=== PATIENT | female | born 1960 | race Caucasian/White ===

== ENCOUNTER → 2019-10-09 09:15 | Outpatient (BNVA) | payer MEDICARE, MEDICAID, SELFPAY | PROVIDERS: Visit Provider Family Medicine | DX: E78.5 Hyperlipidemia, unspecified (principal); Z01.419 Encounter for gynecological examination (general) (routine) without abnormal findings; F17.219 Nicotine dependence, cigarettes, with unspecified nicotine-induced disorders; Z68.23 Body mass index [BMI] 23.0-23.9, adult | CPT/HCPCS: 80053; 80061; 85025; 88175 ==

== ENCOUNTER 2019-10-14 13:50 | Inpatient (IN) | payer MEDICARE, MEDICAID, SELFPAY ==
[2019-10-14] VITALS (82 sets, daily range): BP systolic 58–187; BP diastolic 38–95; PULSE 59–78; RESP 14–18; TEMP 35.9–36.6; O2SAT 93–100; BMI 24.0
--- NOTE | 2019-10-14 14:02 | ED_ITS ---
HPI - Altered Mental Status General: Chief Complaint: Altered Mental Status Stated Complaint: UNRESPONSIVE Time Seen by Provider: 10/14/19 14:01 History of Present Illness: HPI narrative: 59-year-old female brought in by EMS. They report they got in the field was that she had told the family member she would take something and go to sleep permanently. She was last seen well last evening. This afternoon EMS was called for a patient nonresponsive on their arrival she had sonorous respirations was RSI and intubated with a 7.0 ET tube on arrival here she is stable blood pressure is stable she has a spontaneous circulating rhythm is completely nonresponsive yet. She has no evidence of trauma. According to the family members there was no fever cough or respiratory difficulty prior to that episode. Review of Systems General: Reports: ROS unobtainable due to endotracheal tube PFSH ED PFSH: Medical History Anxiety and depression Cancer of breast Dizziness Dyslipidemia GERD (gastroesophageal reflux disease) History of breast cancer Seizure Shoulder pain Surgical History H/O carpal tunnel repair H/O tubal ligation History of cholecystectomy History of lumpectomy of right breast History of melanoma excision History of surgery on wrist Hx of removal of ovary Status post surgical removal of malignant neoplasm of skin Family History Other CAD (coronary artery disease) Stroke Social History Smoking and tobacco status: current every day smoker cigarettes Packs smoked per day: 1 Alcohol intake: never Physical Exam HENMT: COMMON NORMALS: normocephalic, atraumatic, external ears normal, EAC's normal and TM's normal bilaterally HEAD & SCALP: normocephalic and atraumatic EXTERNAL EAR: Yes external ears normal EXTERNAL AUDITORY CANAL: EAC's normal TYMPANIC MEMBRANE: TM's normal bilaterally Neck/C-Spine: COMMON NORMALS: no JVD Lymph: LYMPHATIC: no lymphadenopathy noted and no lymphedema noted Resp: COMMON NORMALS: normal respiratory effort, No retractions, No use of accessory muscles and clear to auscultation bilaterally AUSCULTATION: clear to auscultation bilaterally Cardio: COMMON NORMALS: no JVD, regular rate, regular rhythm and No murmurs present (Cardio) RATE: regular rate RHYTHM: regular rhythm GI: COMMON NORMALS: Soft to palpation and No hepatosplenomegaly present AUSCULTATION: Yes normoactive bowel sounds PALPATION: Yes Soft to palpation, No Tenderness to palpation present (GI), No Guarding due to palpation present (GI) and Yes No hepatosplenomegaly present Extremity: COMMON NORMALS: normal to inspection, capillary refill normal, no clubbing, cyanosis or edema, no calf tenderness and no pedal edema Skin: COMMON NORMALS: no rashes or lesions noted GENERAL SKIN EXAM: no rashes or lesions noted Course Vital Signs: Vital signs: Vital Signs Temperature 97.4 F L 10/17/19 04:00 Pulse Rate 87 10/17/19 06:00 Respiratory Rate 22 H 10/17/19 06:00 Blood Pressure 167/78 10/17/19 06:00 Pulse Oximetry 96 10/17/19 06:00 MDM - Altered Mental Status MDM Narrative: Medical decision making narrative: Patient nonresponsive. On arrival informed by EMS that she had made comments about taking something and going to sleep she had not been seen since the evening prior was found at 1:00 this afternoon with a respiratory rate of 8 she was intubated immediately on arrival here on exam no significant finding on exam suspect she took an unknown toxin in an attempt to harm herself we will go ahead and admit to ICU discussed Dr. Faulkner. Lab Data: Labs: Lab Results 10/14/19 10/14/19 10/14/19 Range/Units 13:57 14:00 14:00 WBC 9.3 (4.0-10.0) 10^3/ uL RBC 4.67 (4.1-5.3) 10^6/u L Hgb 13.3 (11.5-15.3) g/dL Hct 42.0 (37.0-47.0) % MCV 89.9 (81-99) fL MCH 28.5 (28.0-34.0) pg MCHC 31.7 (30.0-36.0) g/dL RDW 12.5 (12.1-15.1) % Plt Count 204 (130-400) 10^3/c mm MPV 9.6 (7.4-10.4) fL Neut % (Auto) 59.9 % Lymph % (Auto) 29.0 % Glascock % (Auto) 9.4 % Eos % (Auto) 1.0 % Baso % (Auto) 0.5 % Neut # (Auto) 5.55 (1.8-7.7) 10^3/u L Lymph # (Auto) 2.7 (0.8-4.8) 10^3/u L Glascock # (Auto) 0.9 (0.2-0.9) 10^3/u L Eos # (Auto) 0.1 (0.0-0.8) 10^3/u L Baso # (Auto) 0.1 (0.0-0.1) 10^3/u L Nucleated RBC % (a uto) 0 % Nucleated RBCs # 0.0 /100WBC PT (12.1-14.9) SECO NDS INR (0.8-1.2) APTT (23.9-36.7) SECO NDS Specimen Type Arterial Sample Site Radial, left ABG pH 7.44 (7.35-7.45) ABG pCO2 31.7 L (35-45) mmHg ABG pO2 446.0 H (80.0-100.0) mmH g ABG HCO3 21.4 L (22-26) mmol/L ABG O2 Saturation > 100.0 ABG Base Excess -2.0 (-2.0-2.0) mmol/ L Edgar Test Pos A-a O2 Gradient 27.9 H (5-10) mmHg Hematocrit 39.9 (37-47) % Hgb O2 Saturation 92.3 L (95-100) % Carboxyhemoglobin 7.2 (0.4-20.1) %THgb Methemoglobin 0.9 (0.4-1.5) % Total Hemoglobin 13.0 (12-16) g/dL Sodium 142.0 140 (131-143) mmol/L Potassium 3.2 L 3.7 (3.5-5.0) mmol/L Glucose 125.0 H 129 H (70-115) mg/dL Ionized Calcium 1.2 (1.1-1.4) mmol/L O2 Delivery Device Vent FiO2 100.0 % Emergency Communications Dispatcher ID Ck Chloride 104 (98-107) mmol/L Carbon Dioxide 22 (22-29) mmol/L Anion Gap 17.7 (5-19) BUN 18 (8-23) mg/dL Creatinine 0.8 (0.5-0.9) mg/dL GFR Calculation 73.2 L (90-130) mL/min Calculated Osmolal ity 288 (285-295) mOsm/k g Lactic Acid (0.5-2.2) mmol/L Calcium 9.2 (8.5-10.5) mg/dL Total Bilirubin 0.2 (0.15-1.2) mg/dL AST 19 (0-32) U/L ALT 16 (0-33) U/L Alkaline Phosphata se 79 (35-105) IU/L Ammonia (11-51) umol/L Creatine Kinase 115 (26-192) U/L Troponin T Baselin e (0-10) ng/L Total Protein 6.9 (6.6-8.7) g/dL Albumin 4.4 (3.5-5.2) g/dL Globulin 2.5 (1.3-4.6) g/dL Urine Color (Yellow) Urine Appearance (CLEAR) Urine pH (5-7) Ur Specific Gravit y (1.005-1.030) Urine Protein (Negative) Urine Glucose (UA) (Normal) Urine Ketones (Negative) Urine Blood (Negative) Urine Nitrate (Negative) Urine Bilirubin (NEGATIVE) Urine Urobilinogen (Negative) mg/dL Ur Leukocyte Chrissie ase (Negative) Urine RBC (0-2) /hpf Urine WBC (0-5) /hpf Ur Squamous Epith Cells (0-5) Amorphous Sediment Urine Bacteria (NONE) Urine Mucus Salicylates < 0.3 L (3-10) mg/dL Urine Opiates Scre en (Negative) ng/mL Acetaminophen < 5.0 L (10-30) ug/mL Ur Barbiturates Sc reen (Negative) ng/mL Ur Phencyclidine S crn (Negative) ng/mL Ur Amphetamines Sc reen (Negative) ng/mL U Benzodiazepines Scrn (Negative) ng/mL Urine Cocaine Scre en (Negative) ng/mL U Marijuana (THC) Screen (Negative) ng/mL Ethyl Alcohol 43 H (0-10) mg/dL Serum Ketones Negative (Negative) Nasal/Oral COVID-1 9 PCR SARS-CoV-2 Ag (Rap id) (Negative) 10/14/19 10/14/19 10/14/19 Range/Units 14:00 14:00 14:00 WBC (4.0-10.0) 10^3/ uL RBC (4.1-5.3) 10^6/u L Hgb (11.5-15.3) g/dL Hct (37.0-47.0) % MCV (81-99) fL MCH (28.0-34.0) pg MCHC (30.0-36.0) g/dL RDW (12.1-15.1) % Plt Count (130-400) 10^3/c mm MPV (7.4-10.4) fL Neut % (Auto) % Lymph % (Auto) % Glascock % (Auto) % Eos % (Auto) % Baso % (Auto) % Neut # (Auto) (1.8-7.7) 10^3/u L Lymph # (Auto) (0.8-4.8) 10^3/u L Glascock # (Auto) (0.2-0.9) 10^3/u L Eos # (Auto) (0.0-0.8) 10^3/u L Baso # (Auto) (0.0-0.1) 10^3/u L Nucleated RBC % (a uto) % Nucleated RBCs # /100WBC PT 12.40 (12.1-14.9) SECO NDS INR 0.90 (0.8-1.2) APTT 27.2 (23.9-36.7) SECO NDS Specimen Type Sample Site ABG pH (7.35-7.45) ABG pCO2 (35-45) mmHg ABG pO2 (80.0-100.0) mmH g ABG HCO3 (22-26) mmol/L ABG O2 Saturation ABG Base Excess (-2.0-2.0) mmol/ L Edgar Test A-a O2 Gradient (5-10) mmHg Hematocrit (37-47) % Hgb O2 Saturation (95-100) % Carboxyhemoglobin (0.4-20.1) %THgb Methemoglobin (0.4-1.5) % Total Hemoglobin (12-16) g/dL Sodium (131-143) mmol/L Potassium (3.5-5.0) mmol/L Glucose (70-115) mg/dL Ionized Calcium (1.1-1.4) mmol/L O2 Delivery Device FiO2 % Emergency Communications Dispatcher ID Chloride (98-107) mmol/L Carbon Dioxide (22-29) mmol/L Anion Gap (5-19) BUN (8-23) mg/dL Creatinine (0.5-0.9) mg/dL GFR Calculation (90-130) mL/min Calculated Osmolal ity (285-295) mOsm/k g Lactic Acid 2.2 (0.5-2.2) mmol/L Calcium (8.5-10.5) mg/dL Total Bilirubin (0.15-1.2) mg/dL AST (0-32) U/L ALT (0-33) U/L Alkaline Phosphata se (35-105) IU/L Ammonia 20 (11-51) umol/L Creatine Kinase (26-192) U/L Troponin T Baselin e (0-10) ng/L Total Protein (6.6-8.7) g/dL Albumin (3.5-5.2) g/dL Globulin (1.3-4.6) g/dL Urine Color (Yellow) Urine Appearance (CLEAR) Urine pH (5-7) Ur Specific Gravit y (1.005-1.030) Urine Protein (Negative) Urine Glucose (UA) (Normal) Urine Ketones (Negative) Urine Blood (Negative) Urine Nitrate (Negative) Urine Bilirubin (NEGATIVE) Urine Urobilinogen (Negative) mg/dL Ur Leukocyte Chrissie ase (Negative) Urine RBC (0-2) /hpf Urine WBC (0-5) /hpf Ur Squamous Epith Cells (0-5) Amorphous Sediment Urine Bacteria (NONE) Urine Mucus Salicylates (3-10) mg/dL Urine Opiates Scre en (Negative) ng/mL Acetaminophen (10-30) ug/mL Ur Barbiturates Sc reen (Negative) ng/mL Ur Phencyclidine S crn (Negative) ng/mL Ur Amphetamines Sc reen (Negative) ng/mL U Benzodiazepines Scrn (Negative) ng/mL Urine Cocaine Scre en (Negative) ng/mL U Marijuana (THC) Screen (Negative) ng/mL Ethyl Alcohol (0-10) mg/dL Serum Ketones (Negative) Nasal/Oral COVID-1 9 PCR SARS-CoV-2 Ag (Rap id) (Negative) 10/14/19 10/14/19 10/14/19 Range/Units 14:00 14:10 14:10 WBC (4.0-10.0) 10^3/ uL RBC (4.1-5.3) 10^6/u L Hgb (11.5-15.3) g/dL Hct (37.0-47.0) % MCV (81-99) fL MCH (28.0-34.0) pg MCHC (30.0-36.0) g/dL RDW (12.1-15.1) % Plt Count (130-400) 10^3/c mm MPV (7.4-10.4) fL Neut % (Auto) % Lymph % (Auto) % Glascock % (Auto) % Eos % (Auto) % Baso % (Auto) % Neut # (Auto) (1.8-7.7) 10^3/u L Lymph # (Auto) (0.8-4.8) 10^3/u L [place]ascock # (Auto) (0.2-0.9) 10^3/u L Eos # (Auto) (0.0-0.8) 10^3/u L Baso # (Auto) (0.0-0.1) 10^3/u L Nucleated RBC % (a uto) % Nucleated RBCs # /100WBC PT (12.1-14.9) SECO NDS INR (0.8-1.2) APTT (23.9-36.7) SECO NDS Specimen Type Sample Site ABG pH (7.35-7.45) ABG pCO2 (35-45) mmHg ABG pO2 (80.0-100.0) mmH g ABG HCO3 (22-26) mmol/L ABG O2 Saturation ABG Base Excess (-2.0-2.0) mmol/ L Edgar Test A-a O2 Gradient (5-10) mmHg Hematocrit (37-47) % Hgb O2 Saturation (95-100) % Carboxyhemoglobin (0.4-20.1) %THgb Methemoglobin (0.4-1.5) % Total Hemoglobin (12-16) g/dL Sodium (131-143) mmol/L Potassium (3.5-5.0) mmol/L Glucose (70-115) mg/dL Ionized Calcium (1.1-1.4) mmol/L O2 Delivery Device FiO2 % Emergency Communications Dispatcher ID Chloride (98-107) mmol/L Carbon Dioxide (22-29) mmol/L Anion Gap (5-19) BUN (8-23) mg/dL Creatinine (0.5-0.9) mg/dL GFR Calculation (90-130) mL/min Calculated Osmolal ity (285-295) mOsm/k g Lactic Acid (0.5-2.2) mmol/L Calcium (8.5-10.5) mg/dL Total Bilirubin (0.15-1.2) mg/dL AST (0-32) U/L ALT (0-33) U/L Alkaline Phosphata se (35-105) IU/L Ammonia (11-51) umol/L Creatine Kinase (26-192) U/L Troponin T Baselin e 7 (0-10) ng/L Total Protein (6.6-8.7) g/dL Albumin (3.5-5.2) g/dL Globulin (1.3-4.6) g/dL Urine Color (Yellow) Urine Appearance (CLEAR) Urine pH (5-7) Ur Specific Gravit y (1.005-1.030) Urine Protein (Negative) Urine Glucose (UA) (Normal) Urine Ketones (Negative) Urine Blood (Negative) Urine Nitrate (Negative) Urine Bilirubin (NEGATIVE) Urine Urobilinogen (Negative) mg/dL Ur Leukocyte Chrissie ase (Negative) Urine RBC (0-2) /hpf Urine WBC (0-5) /hpf Ur Squamous Epith Cells (0-5) Amorphous Sediment Urine Bacteria (NONE) Urine Mucus Salicylates (3-10) mg/dL Urine Opiates Scre en (Negative) ng/mL Acetaminophen (10-30) ug/mL Ur Barbiturates Sc reen (Negative) ng/mL Ur Phencyclidine S crn (Negative) ng/mL Ur Amphetamines Sc reen (Negative) ng/mL U Benzodiazepines Scrn (Negative) ng/mL Urine Cocaine Scre en (Negative) ng/mL U Marijuana (THC) Screen (Negative) ng/mL Ethyl Alcohol (0-10) mg/dL Serum Ketones (Negative) Nasal/Oral COVID-1 9 PCR Negative SARS-CoV-2 Ag (Rap id) Negative (Negative) 10/14/19 10/14/19 Range/Units 14:14 14:14 WBC (4.0-10.0) 10^3/ uL RBC (4.1-5.3) 10^6/u L Hgb (11.5-15.3) g/dL Hct (37.0-47.0) % MCV (81-99) fL MCH (28.0-34.0) pg MCHC (30.0-36.0) g/dL RDW (12.1-15.1) % Plt Count (130-400) 10^3/c mm MPV (7.4-10.4) fL Neut % (Auto) % Lymph % (Auto) % Glascock % (Auto) % Eos % (Auto) % Baso % (Auto) % Neut # (Auto) (1.8-7.7) 10^3/u L Lymph # (Auto) (0.8-4.8) 10^3/u L Glascock # (Auto) (0.2-0.9) 10^3/u L Eos # (Auto) (0.0-0.8) 10^3/u L Baso # (Auto) (0.0-0.1) 10^3/u L Nucleated RBC % (a uto) % Nucleated RBCs # /100WBC PT (12.1-14.9) SECO NDS INR (0.8-1.2) APTT (23.9-36.7) SECO NDS Specimen Type Sample Site ABG pH (7.35-7.45) ABG pCO2 (35-45) mmHg ABG pO2 (80.0-100.0) mmH g ABG HCO3 (22-26) mmol/L ABG O2 Saturation ABG Base Excess (-2.0-2.0) mmol/ L Edgar Test A-a O2 Gradient (5-10) mmHg Hematocrit (37-47) % Hgb O2 Saturation (95-100) % Carboxyhemoglobin (0.4-20.1) %THgb Methemoglobin (0.4-1.5) % Total Hemoglobin (12-16) g/dL Sodium (131-143) mmol/L Potassium (3.5-5.0) mmol/L Glucose (70-115) mg/dL Ionized Calcium (1.1-1.4) mmol/L O2 Delivery Device FiO2 % Emergency Communications Dispatcher ID Chloride (98-107) mmol/L Carbon Dioxide (22-29) mmol/L Anion Gap (5-19) BUN (8-23) mg/dL Creatinine (0.5-0.9) mg/dL GFR Calculation (90-130) mL/min Calculated Osmolal ity (285-295) mOsm/k g Lactic Acid (0.5-2.2) mmol/L Calcium (8.5-10.5) mg/dL Total Bilirubin (0.15-1.2) mg/dL AST (0-32) U/L ALT (0-33) U/L Alkaline Phosphata se (35-105) IU/L Ammonia (11-51) umol/L Creatine Kinase (26-192) U/L Troponin T Baselin e (0-10) ng/L Total Protein (6.6-8.7) g/dL Albumin (3.5-5.2) g/dL Globulin (1.3-4.6) g/dL Urine Color Yellow (Yellow) Urine Appearance Sl cloudy A (CLEAR) Urine pH 5 (5-7) Ur Specific Gravit y 1.025 (1.005-1.030) Urine Protein 1+ H (Negative) Urine Glucose (UA) Norm (Normal) Urine Ketones Negative (Negative) Urine Blood 2+ H (Negative) Urine Nitrate Negative (Negative) Urine Bilirubin 1+ H (NEGATIVE) Urine Urobilinogen 1 H (Negative) mg/dL Ur Leukocyte Chrissie ase Negative (Negative) Urine RBC 15-25 H (0-2) /hpf Urine WBC Rare (0-5) /hpf Ur Squamous Epith Cells 5-10 H (0-5) Amorphous Sediment Not Reportable Urine Bacteria 2+ H (NONE) Urine Mucus 2+ Salicylates (3-10) mg/dL Urine Opiates Scre en Negative (Negative) ng/mL Acetaminophen (10-30) ug/mL Ur Barbiturates Sc reen Negative (Negative) ng/mL Ur Phencyclidine S crn Negative (Negative) ng/mL Ur Amphetamines Sc reen Negative (Negative) ng/mL U Benzodiazepines Scrn Positive H (Negative) ng/mL Urine Cocaine Scre en Negative (Negative) ng/mL U Marijuana (THC) Screen Positive H (Negative) ng/mL Ethyl Alcohol (0-10) mg/dL Serum Ketones (Negative) Nasal/Oral COVID-1 9 PCR SARS-CoV-2 Ag (Rap id) (Negative) Discharge Plan Discharge Patient Disposition: Admitted As Inpatient Admit Provider: Luis Faulkner Clinical Impression: Acute encephalopathy, Overdose, Suicide attempt Condition: Stable Interventions: ED Discharge Assessment Last Done: 10/14/19 16:20 ED Charges Last Done: 10/14/19 16:20 Discharge Date/Time: 10/14/19 16:21 Coding Level of Care Code ED Garbage Truck Dispatcher for Alfredo Palma
--- NOTE | 2019-10-14 14:03 | XRR_ITS ---
PROCEDURE INFORMATION: Exam: XR Chest, 1 View Exam date and time: 10/14/2019 2:42 PM Age: 59 years old Clinical indication: Cough and dyspnea; Additional info: Dyspnea/cough TECHNIQUE: Imaging protocol: XR of the chest Views: 1 view. COMPARISON: No relevant prior studies available. FINDINGS: Tubes, catheters and devices: ET tube tip lies 3-4 cm above rani. NG tube descends into stomach. Lungs: Somewhat nonspecific haziness left hemithorax base with obscuration of left hemidiaphragm. Possible left lung base infiltrate or atelectasis. Possible small left pleural effusion. Pleural space: See Lungs finding. Heart/Mediastinum: Unremarkable. No cardiomegaly. Bones/joints: Unremarkable. Soft tissues: Prior right breast surgery with right axillary surgical clips in place. XR/XR chest 1V portable [id number] IMPRESSION: Left basilar haziness as described above.
--- NOTE | 2019-10-14 14:03 | CT_ITS ---
WS: [id number] CT HEAD TECHNIQUE: Noncontrast CT of the head obtained from the skullbase to the vertex. CLINICAL INFORMATION: Nonresponsive COMPARISON: None. DLP: 810.[address] scans at [facility] use at least one of these dose optimization techniques: automat ed exposure control; mA and/or kV adjustment per patient size (includes targeted exams where dose is matched to clinical indication); or iterative reconstruction. FINDINGS: No evidence of intracranial hemorrhage or mass effect. Ventricular system and basal cisterns are fowler nt. Mild small vessel changes with mild parenchymal volume loss. Chronic lacunar infarct right basal ganglia. No extra-axial fluid collections. No evidence of mass or mass effect. Normal garcia-white diff erentiation. Paranasal sinuses and mastoid air cells are well aerated. .Normal visualized soft tissues. CT/CT head wo con* [id number] IMPRESSION: 1. No evidence of intracranial hemorrhage or mass effect. 2. Mild small vessel changes with mild parenchymal volume loss. 3. No acute intracranial findings. Message left for Rosalino Rodas DO at 10/14/2019 3:05 PM.
[2019-10-14 14:06] LABS: ABG PCO2 31.7 mmHg (35-45); ABG PH Result 7.44 (7.35-7.45); Alveolar-Arterial Oxygen Gradi 27.9 mmHg (5-10); Arterial Blood Gas Hematocrit 39.9 % (37-47); Blood Gas Allen Test Pos; Blood Gas Operator Identificat CK; Blood Gas Sample Site Radial, left; Blood Gas Sample Type Arterial; Carboxyhemoglobin 7.2 %THgb (0.4-20.1); HCO3 ABG 21.4 mmol/L (22-26); HGB O2 Sat 92.3 % (95-100); Ionized Calcium Level - ABG 1.2 mmol/L (1.1-1.4); Methemoglobin 0.9 % (0.4-1.5); Oxygen Device VENT; Oxygen Saturation ABG > 100.0; Potassium Level - ABG 3.2 mmol/L (3.5-5.0)
--- NOTE | 2019-10-14 14:13 | ECG_ITS ---
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 Measurements Intervals [place] Rate: 73 P: 59 TX: 171 QRS: 45 QRSD: 80 T: 76 QT: 405 QTc: 449 Interpretive Statements SINUS RHYTHM NONSPECIFIC T-WAVE ABNORMALITY Interpretation limited by artifact Compared to ECG 05/07/2018 14:50:39 T-wave abnormality now present Sinus bradycardia no longer present Electronically Signed On 10-14-2019 17:00:09 CDT by Melissa Mclean M.D. [id number]
[2019-10-14 14:32] LABS: Basophils # 0.1 10^3/uL (0.0-0.1); Basophils % 0.5 %; Eosinophils # 0.1 10^3/uL (0.0-0.8); Hemoglobin 13.3 g/dL (11.5-15.3); Ketone (Acetest) Serum Negative (Negative); Lymphocytes # 2.7 10^3/uL (0.8-4.8); Mean Corpuscular HGB Conc 31.7 g/dL (30.0-36.0); Mean Corpuscular Hemoglobin 28.5 pg (28.0-34.0); Mean Corpuscular Volume 89.9 fL (81-99); Mean Platelet Volume 9.6 fL (7.4-10.4); Monocytes # 0.9 10^3/uL (0.2-0.9); Monocytes % 9.4 %; Neutrophils # 5.55 10^3/uL (1.8-7.7); Neutrophils % 59.9 %; Nucleated Red Blood Cells % 0 %; Platelet Count 204 10^3/cmm (130-400); Red Blood Count 4.67 10^6/uL (4.1-5.3); Red Cell Distribution Width 12.5 % (12.1-15.1); White Blood Count 9.3 10^3/uL (4.0-10.0)
[2019-10-14 14:38] LABS: Ammonia 20 umol/L (11-51); Lactic Sepsis W/Reflex 2.2 mmol/L (0.5-2.2); Troponin(5th) Baseline 7 ng/L (0-10)
[2019-10-14 14:41] LABS: Alanine Aminotransferase 16 U/L (0-33); Albumin Level 4.4 g/dL (3.5-5.2); Alcohol Level 43 mg/dL (0-10); Alkaline Phosphatase 79 IU/L (35-105); Blood Urea Nitrogen 18 mg/dL (8-23); Calcium 9.2 mg/dL (8.5-10.5); Carbon Dioxide 22 mmol/L (22-29); Chloride 104 mmol/L (98-107); Creatine Phosphokinase 115 U/L (26-192); Globulin 2.5 g/dL (1.3-4.6); Glomerular Filtration Rate 73.2 mL/min (90-130); Glucose 129 mg/dL (65-115); Osmolality Calculated 288 mOsm/kg (285-295); Sodium 140 mmol/L (136-145); Total Bilirubin 0.2 mg/dL (0.15-1.2); Total Protein 6.9 g/dL (6.6-8.7)
[2019-10-14 14:43] LABS: Acetaminophen < 5.0 ug/mL (10-30); Salicylate < 0.3 mg/dL (3-10)
[2019-10-14 14:44] LABS: Anion Gap 17.7 (5-19); Aspartate Amino Transferase 19 U/L (0-32); Potassium 3.7 mmol/L (3.5-5.1)
[2019-10-14 14:48] LABS: Partial Thromboplastin Time 27.2 SECONDS (23.9-36.7)
[2019-10-14] MEDS: vecuronium 10 mg SDV IVP (15:00)
[2019-10-14 15:05] LABS: Glucose Urine UA Norm (Normal); Protein Urine 1+ (Negative); Specific Gravity, Urine 1.025 (1.005-1.030); Urine Color Yellow (Yellow); pH Urine 5 (5-7)
[2019-10-14 15:06] LABS: Add Urine Microscopic? YES; Bilirubin Urine 1+ (NEGATIVE); Blood Urine 2+ (Negative); Ketones Urine Negative (Negative); Leukocyte Esterase Urine Negative (Negative); Nitrate Urine Negative (Negative); Urobilinogen Urine 1 mg/dL (Negative)
[2019-10-14 15:08] LABS: SARS Covid-2 Antigen Negative (Negative)
[2019-10-14 15:13] LABS: Amphetamines Screen Urine Negative (Negative); Barbiturates Screen Urine Negative (Negative); Benzodiazepines Screen Urine Positive (Negative); Cocaine Screen Urine Negative (Negative); Opiate Screen Urine Negative (Negative); PCP Screen Urine Negative (Negative); THC Screen Urine Positive (Negative)
[2019-10-14 15:24] LABS: RBC Urine 15-25 /hpf (0-2)
[2019-10-14 15:25] LABS: Add Urine Culture? Yes; Bacteria Urine 2+; Mucus Urine 2+; WBC Urine RARE /hpf (0-5)
[2019-10-14] MEDS: cefTRIAXone 1,000 MG in sodium chloride 0.9% (plus) 50 ML 100 MG IV (15:38)
[2019-10-14] MEDS: azithromycin 500 MG in sodium chloride 0.9% 250 ML 250 MG IV ×2 (15:38→19:11)
[2019-10-14 16:11] LABS: Reflex Lactate Order REFLEX LACTIC ORDERD
--- NOTE | 2019-10-14 16:13 | ECG_ITS ---
[facility] Test Date: 2019-10-14 Pat Name: Tejal Yoo Department: Room: 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 Measurements Intervals [place] Rate: 64 P: 60 UT: 158 QRS: 55 QRSD: 93 T: 48 QT: 460 QTc: 477 Interpretive Statements SINUS RHYTHM Compared to ECG 10/14/2019 14:00:53 T-wave abnormality no longer present Electronically Signed On 10-14-2019 22:57:58 CDT by Melissa Mclean M.D. [id number]
--- NOTE | 2019-10-14 16:21 | PC.NURSE ---
Pt provided AMA dischage information, discussed withpt. He verbalized understanding. Pt still unable to find transportation at this time, so pt remains in ICU 2.
[2019-10-14 16:26] LABS: Troponin 5 2HR 8.63 ng/L (0-10); Troponin 5 2HR Delta 1.63 ABS# (0-10)
--- NOTE | 2019-10-14 16:30 | PC.NURSE ---
Pt received from ED intubated and on vent. JESSICA. Reported that pt received Vecuronium to be able to tolerate CT. IVs noted in left wrist and right AC. Pt noted to have a necklace, earrings and belly button ring still in place. Clamped OG noted . Patent josé noted. Soft restraints noted.
[2019-10-14] MEDS: dextrose 5%-sod chloride 0.45% 1,000 ML 75 ML IV (17:43)
[2019-10-14] MEDS: sodium chloride 0.9% 1,000 ML 999 ML IV (17:43)
[2019-10-14] MEDS: enoxaparin 40 mg/0.4 mL Syringe SUBCUT (17:43)
[2019-10-14 17:44] LABS: Lactic Acid level (Lactate) 2.7 mmol/L (0.5-2.2)
--- NOTE | 2019-10-14 18:21 | PM.HP ---
Providers/Chief Complaint Admitting Physician: Luis Faulkner MD Chief Complaint: UNRESPONSIVE History of Present Illness Tejal Yoo is a 59 year old female with a past medical history of seizure disorder, depression, CA breast, was brought in by the EMS with chief complaint of found altered and hypoventilating upon arrival. She was intubated by the EMS. Upon arrival to the ER she was worked up further for acute encephalopathy likely secondary to drug intoxicatio. CBC , CMP, lactic acid, blood culture, ABG, x-ray chest CT, head without contrast U tox, troponin was ordered. Lactic acid is 2.7 , first set of troponin is flat , CT head has failed to show any acute intracranial pathology, ABG has ruled out hypercapnia and hypoxemia, U tox: Is positive for marijuana, Ethyl alcohol is 43 mg/dL, serum Tylenol level normal, salicylate level is normal, urine barbiturate screen is negative, urine PCp, screen is negative, rapid COVID antigen is negative. EKG: SINUS RHYTHM Compared to ECG 10/14/2019 14:00:53 T-wave abnormality no longer present. Upon arrival to the ICU patient patient systolic blood pressure dropped to low 70 s she was bolused with 1 L normal saline which resulted in improved map of greater than 60. Consent for central line and A-line has been obtained. Patient home medications includes: Propanolol, citalopram, alprazolam as well as atorvastatin and Keppra. patient remains intubated and current GCS is: 8T on sedation. Review of Systems Narrative: Review of system could not be obtained as the patient is intubated and sedated. Medications/Allergies Home Medications Medication Instructions Recorded Confirmed Last Taken Type cyclobenzaprine 10 mg tablet 10 mg PO BID PRN #60 tab 08/27/19 10/14/19 Unknown Rx meclizine 25 mg tablet 25 mg PO BID PRN #60 tab 08/27/19 10/14/19 Unknown Rx meloxicam 15 mg tablet 15 mg PO DAILY #30 tab 08/27/19 10/14/19 Unknown Rx alprazolam 0.25 mg tablet 0.25 mg PO BID PRN #60 tab 10/09/19 10/14/19 Unknown Rx budesonide-formoterol HFA 160 2 puff INHALATION BID 10/09/19 10/14/19 Unknown History mcg-4.5 mcg/actuation aerosol inhaler citalopram 20 mg tablet 20 mg PO DAILY #30 tab 10/09/19 10/14/19 Unknown Rx fluticasone propionate 50 2 spray INTRANASAL DAILY 10/09/19 10/14/19 Unknown History mcg/actuation nasal spray,suspension Nexium 40 mg capsule,delayed 40 mg PO BID #60 cap NS 10/10/19 10/14/19 Unknown Rx release atorvastatin 20 mg tablet 20 mg PO DAILY #30 tab 10/10/19 10/14/19 Unknown Rx propranolol 20 mg tablet 20 mg PO BID #60 tab 10/10/19 10/14/19 Unknown Rx levetiracetam 500 mg tablet 500 mg PO BID #60 tab 10/14/19 10/14/19 Unknown Rx Allergies Allergy/AdvReac Type Severity Reaction Status Date / Time hydrocodone AdvReac Mild make me Verified 10/14/19 14:32 sick PFSH Acute PFSH: Medical History (Updated 10/14/19 @ 18:56 by Luis Faulkner MD) Anxiety and depression Cancer of breast Dizziness Dyslipidemia GERD (gastroesophageal reflux disease) History of breast cancer Seizure Shoulder pain Surgical History H/O carpal tunnel repair H/O tubal ligation History of cholecystectomy History of lumpectomy of right breast History of melanoma excision History of surgery on wrist Hx of removal of ovary Status post surgical removal of malignant neoplasm of skin Family History Other CAD (coronary artery disease) Stroke Social History Smoking and tobacco status: current every day smoker cigarettes Packs smoked per day: 1 Alcohol intake: never Vitals/I&O/Wt Last Vital Signs Temp 97.9 F 10/14/19 13:54 Pulse 78 10/14/19 16:20 Resp 14 10/14/19 18:09 BP 104/67 10/14/19 16:20 Pulse Ox 100 10/14/19 16:20 10/14/19 10/14/19 10/14/19 06:59 14:59 22:59 Intake Total 300 / 300 Balance 300 / 300 Weight last 48 hrs Weight 63.503 kg Physical Exam Narrative: EXAM NARRATIVE: Currently patient is intubated with GCS of 8T off sedation. HENMT: COMMON NORMALS: normocephalic, atraumatic, hearing grossly normal bilaterally and external ears normal HEAD & SCALP: normocephalic and atraumatic EXTERNAL EAR: Yes external ears normal Eye: COMMON NORMALS: no scleral icterus GENERAL EYE: appearance normal, both eyes and all related structures Chest: COMMONS NORMALS: normal inspection of the chest and normal palpation of entire chest wall CHEST: Yes Symmetrical chest wall rise Resp: COMMON NORMALS: normal respiratory effort, No retractions, No use of accessory muscles and clear to auscultation bilaterally EFFORT & INSPECTION: Yes symmetric chest movement AUSCULTATION: clear to auscultation bilaterally Cardio: COMMON NORMALS: regular rate, regular rhythm, S1 normal heart sound present, S2 normal heart sound present, No gallops present (Cardio), No murmurs present (Cardio), No rub (Cardio) and Peripheral pulses 2+ throughout RATE: regular rate RHYTHM: regular rhythm HEART SOUNDS: S1 normal heart sound present and S2 normal heart sound present PERIPHERAL PULSES: Peripheral pulses 2+ throughout GI: COMMON NORMALS: Normal to inspection, nondistended, normoactive bowel sounds present, Soft to palpation, non-tender, No hepatosplenomegaly present and no masses AUSCULTATION: Yes normoactive bowel sounds PALPATION: Yes Soft to palpation and Yes No hepatosplenomegaly present RECTAL EXAM: deferred : COMMON NORMALS: Yes no CVA tenderness BLADDER/KIDNEY EXAM: Yes no CVA tenderness Back/Pelvis: COMMON NORMALS: no CVA tenderness Extremity: COMMON NORMALS: no clubbing, cyanosis or edema and no pedal edema Neuro: COMMON NORMALS: patient oriented x3 Data : 10/14/19 14:00 10/14/19 14:00 Micro: Microbiology 10/14/19 14:33 Gram Stain - Final Sputum - Endotracheal Tube Aspirate 10/14/19 13:55 Blood Culture - Preliminary Blood SPECIMEN COLLECTED 10/14/19 14:00 Blood Culture - Preliminary Blood SPECIMEN COLLECTED CT Head: I personally reviewed and interpreted this imaging study as follows: Radiologist's impression: No evidence of intracranial hemorrhage or mass effect. Ventricular system and basal cisterns are patent. Mild small vessel changes with mild parenchymal volume loss. Chronic lacunar infarct right basal ganglia. No extra-axial fluid collections. No evidence of mass or mass effect. Normal garcia-white differentiation.Paranasal sinuses and mastoid air cells are well aerated. .Normal visualized soft tissues. EKG 1: I personally reviewed and interpreted this EKG as follows: Steward/Stewardess Third Interpretation: SINUS RHYTHM Compared to ECG 10/14/2019 14:00:53 T-wave abnormality no longer present Attestation for Other Data: I personally reviewed and interpreted the following: Other data: X-ray chest:Lungs: Somewhat nonspecific haziness left hemithorax base with obscuration of left hemidiaphragm. Possible left lung base infiltrate or atelectasis. Possible small left pleural effusion. Pleural space: See Lungs finding. Heart/Mediastinum: Unremarkable. No cardiomegaly. Bones/joints: Unremarkable. Soft tissues: Prior right breast surgery with right axillary surgical clips in place A&P Assessment and plan (1) Acute encephalopathy: Acute encephalopathy likely secondary to drug intoxicatio. CBC , CMP, lactic acid, blood culture, ABG, x-ray chest CT, head without contrast U tox, troponin was ordered. Lactic acid is 2.7 , first set of troponin is flat , CT head has failed to show any acute intracranial pathology, ABG has ruled out hypercapnia and hypoxemia, U tox: Is positive for marijuana, Ethyl alcohol is 43 mg/dL, serum Tylenol level normal, salicylate level is normal, urine barbiturate screen is negative, urine PCp, screen is negative, rapid COVID antigen is negative. EKG: SINUS RHYTHM Compared to ECG 10/14/2019 14:00:53 T-wave abnormality no longer present. We have empirically covered her for aspiration/community-acquired pneumonia. She is currently on ceftriaxone and azithromycin. Status: Acute (2) GERD (gastroesophageal reflux disease): Continue Protonix 40 mg IV daily. Status: Chronic Qualifiers: Esophagitis presence: esophagitis presence not specified Qualified Code(s): K21.9 - Gastro-esophageal reflux disease without esophagitis (3) Anxiety and depression: Continue citalopram and alprazolam. Status: Chronic (4) Dyslipidemia: Continue atorvastatin 40 Mg oral daily. Status: Chronic (5) Pneumonia: X-ray chest:Lungs: Somewhat nonspecific haziness left hemithorax base with obscuration of left hemidiaphragm. Possible left lung base infiltrate or atelectasis.Possible small left pleural effusion.Pleural space: See Lungs finding. Heart/Mediastinum: Unremarkable. No cardiomegaly. Bones/joints: Unremarkable.Soft tissues: Prior right breast surgery with right axillary surgical clips in place. community-acquired pneumonia/Possible aspiration PNA. We will cover her with ceftriaxone and Azithromycin. Status: Acute Additional A&P Information Seizure disorder: Continue Keppra 500 mg I.V Q12H Daily DVT PPX: Lovenox 40 mg sc daily. Code status : Full code. Patient family has been updated about the developments. Attestations Medical Necessity Statement*: She needs ICU stay for the management of acute encephalopathy. Coding Level of Care Code Acute Transfer Man for [facility] Fwd Exam Comprehensive Diagnoses Acute encephalopathy G93.40 GERD (gastroesophageal reflux disease) K21.9 Esophagitis presence: esophagitis presence not specified Anxiety and depression F41.9; F32.9 Dyslipidemia E78.5 Pneumonia J18.9
--- NOTE | 2019-10-14 20:13 | ECG_ITS ---
[facility] Test Date: 2019-10-14 Pat Name: Tejal Yoo Department: Room: ICU09 Gender: Female Sheep Farmer: : 1960 Requested By: Rosalino Galvan Order Number: [id number] Shaun MD: Jordyn Dick M.D. Measurements Intervals [place] Rate: 65 P: 54 AL: 170 QRS: 42 QRSD: 87 T: 45 QT: 474 QTc: 494 Interpretive Statements SINUS RHYTHM PROLONGED QT INTERVAL Compared to ECG 10/14/2019 18:00:53 Prolonged QT interval now present Electronically Signed On 10-15-2019 20:02:20 CDT by Jordyn Dick M.D. [email or web address].PlaceFulllaird hospitalCrispy Gamerkettering health prebleOrtho Neuro Management/store/OM/[id number]
[2019-10-14 20:25] LABS: Troponin 5 6HR 11.76 ng/L (0-10); Troponin 5 6HR Delta 4.76 ng/L (0-12)
--- NOTE | 2019-10-14 20:34 | PC.NURSE ---
Care assumed at change of shift. Pt currently remains intubated at 40% FiO2 and RR at 14. Removed necklace, and belly ring and placed both into patients belongings bag in room window. Pt responded to firm sternal rub with external rotation. Pupils sluggish at 3mm bilaterally. Room visible from nurses station. Will continue to monitor closely.
[2019-10-15] VITALS (122 sets, daily range): BP systolic 94–166; BP diastolic 52–90; PULSE 59–83; RESP 10–20; TEMP 36.4–37.1; O2SAT 94–100
--- NOTE | 2019-10-15 00:07 | USCV_ITS ---
Tejal Yoo Age: 59 Gender: F : 1960 Exam Date: 10/15/2019 09:47 Ordering Phys: Luis Faulkner MD Technologist: Wiley Hope Exam Location: [facility] Indication: DRUG INTOXICATION BP: 108 / 52 HR: 69 Rhythm: Sinus Technical Quality: Fair MEASUREMENTS (Male / Female) Normal Values 2D ECHO LVOT Diameter 2.0 cm LV Ejection Fraction MOD 2C 79.5 % LV Ejection Fraction 2C AL 79.9 % LA Diameter 3.8 cm LA Width 3.2 cm LA Height 4.9 cm RA Width 3.3 cm RA Height 4.5 cm Aorta at Sinotubular Diameter 1.0 cm M-MODE LV Diastolic Diameter MM 5.3 cm 4.2 - 5.9 / 3.9 - 5.3 cm LV Systolic Diameter MM 3.4 cm LV Ejection Fraction MM Teich 64.4 % IVS Diastolic Thickness MM 0.7 cm 0.6 - 1.0 / 0.6 - 0.9 cm IVS Systolic Thickness MM 1.2 cm LVPW Diastolic Thickness MM 0.9 cm 0.6 - 1.0 / 0.6 - 0.9 cm LVPW Systolic Thickness MM 1.1 cm RV Diastolic Diameter MM 1.2 cm Aortic Annulus Diameter 3.2 cm LA Ao Ratio MM 1.2 MV E Point Septal Separation 0.5 cm DOPPLER AV Peak Velocity 140.0 cm/s LVOT Peak Velocity 78.0 cm/s AV Area Cont Eq vti 1.6 cm squared AV Area Cont Eq pk 1.8 cm squared MV Area PHT 5.0 cm squared Mitral E to A Ratio 1.2 MV E' Velocity 8.0 cm/s Mitral E to MV E' Ratio 10.5 Mitral E to LV E' Lateral Ratio 9.6 Mitral E to LV E' Septal Ratio 11.7 TR Peak Velocity 149.0 cm/s TR Peak Gradient 8.8 mmHg TV Peak E Velocity 78.0 cm/s Right Atrial Pressure 3.0 mmHg Pulmonary Artery Systolic Pressu 11.9 mmHg PV Peak Velocity 105.0 cm/s FINDINGS Left Ventricle Normal left ventricular cavity size. Normal left ventricular systolic function. No regional wall motion abnormalities. Left ventricular ejection fraction is estimated at 65 %. Grade I/IV diastolic dysfunction (abnormal relaxation filling pattern), normal to mildly elevated filling pressures. Right Ventricle The right ventricle is normal in size and function. Right Atrium The right atrium is normal in size. Left Atrium The left atrium is normal in size. Mitral Valve Structurally normal mitral valve without significant stenosis or prolapse. There is no mitral regurgitation. Aortic Valve Moderate aortic valve calcification. Moderate aortic valve stenosis, mean gradient 3.6 mmHg, MALIA 1.6 cm squared. No aortic valve regurgitation. Tricuspid Valve Structurally normal tricuspid valve without significant stenosis or regurgitation. Pulmonary artery systolic pressure is normal. Pulmonic Valve Structurally normal pulmonic valve without significant stenosis. There is no pulmonic regurgitation. Pericardium Normal pericardium without effusion. Aorta Normal ascending aorta dimension. CONCLUSIONS 1-Normal left ventricular cavity size. Normal left ventricular systolic function. No regional wall motion abnormalities. Left ventricular ejection fraction is estimated at 65 %. Grade I/IV diastolic dysfunction (abnormal relaxation filling pattern), normal to mildly elevated filling pressures. 2-There is no pericardial effusion. 3-Moderate aortic valve calcification. Moderate aortic valve stenosis, mean gradient 3.6 mmHg, MALIA 1.6 cm squared. No aortic valve regurgitation. 4-Pulmonary artery systolic pressure is within normal limits. 5-Right atrial pressure is around 5 mm of mercury. 6-There are no prior echocardiogram studies to compare. Kirti Redding MD (Electronically Signed) Final Date: 15 October 2019 21:53 S
--- NOTE | 2019-10-15 00:08 | ECG_ITS ---
[facility] Test Date: 2019-10-15 Pat Name: Tejal Yoo Department: Room: ICU09 Gender: Female Steeple Jack: MANOJ ROBERTSONB: 1960 Requested By: Luis Faulkner Order Number: [id number] Shaun MD: Jordyn Dick M.D. Measurements Intervals [place] Rate: 64 P: 2 DE: 178 QRS: 12 QRSD: 93 T: 7 QT: 451 QTc: 467 Interpretive Statements SINUS RHYTHM Compared to ECG 10/14/2019 20:46:52 Prolonged QT interval no longer present Electronically Signed On 10-15-2019 20:04:01 CDT by Jordyn Dick M.D. [email or web address] memorial [facility] center hospitalPolarTech/store/OM/[id number]
[2019-10-15 03:12] LABS: Glucose Point of Care 114 mg/dL (70-110)
--- NOTE | 2019-10-15 04:30 | XRR_ITS ---
PROCEDURE INFORMATION: Exam: XR Chest, 1 View Exam date and time: 10/15/2019 4:56 AM Age: 59 years old Clinical indication: Device placement; Other: Et, og; Additional info: Pna. Et, og folowup TECHNIQUE: Imaging protocol: XR of the chest Views: 1 view. COMPARISON: CR XR chest 1V portable [id number] 10/14/2019 2:27 PM FINDINGS: Tubes, catheters and devices: Endotracheal tube, tip 4.6 cm above rani. Nasogastric tube, tip below diaphragm and off image. Lungs: Mild patchy airspace opacities (atelectasis and/or consolidation) at bilateral lung bases. These have overall decreased since the prior study. Pulmonary vasculature within normal limits. Pleural space: No visible pneumothorax or pleural effusion. Heart/Mediastinum: Heart size within normal limits. Bones/joints: No emergent findings identified. XR/XR chest 1V portable [id number] IMPRESSION: 1. Endotracheal tube, tip 4.6 cm above rani. 2. Nasogastric tube, tip below diaphragm and off image. 3. Mild patchy airspace opacities (atelectasis and/or consolidation) at bilateral lung bases. These have overall decreased since the prior study.
[2019-10-15 05:04] LABS: Basophils % 0.7 %; Eosinophils # 0.1 10^3/uL (0.0-0.8); Eosinophils % 1.4 %; Hematocrit 34.2 % (37.0-47.0); Hemoglobin 10.8 g/dL (11.5-15.3); Lymphocytes # 2.4 10^3/uL (0.8-4.8); Mean Corpuscular HGB Conc 31.6 g/dL (30.0-36.0); Mean Corpuscular Hemoglobin 28.6 pg (28.0-34.0); Mean Corpuscular Volume 90.5 fL (81-99); Monocytes # 0.7 10^3/uL (0.2-0.9); Monocytes % 11.5 %; Neutrophils # 2.55 10^3/uL (1.8-7.7); Neutrophils % 44.2 %; Nucleated Red Blood Cells % 0 %; Platelet Count 157 10^3/cmm (130-400); Red Blood Count 3.78 10^6/uL (4.1-5.3); Red Cell Distribution Width 12.9 % (12.1-15.1); White Blood Count 5.8 10^3/uL (4.0-10.0)
[2019-10-15 05:18] LABS: INR 0.97 (0.8-1.2)
[2019-10-15 05:19] LABS: Partial Thromboplastin Time 29.2 SECONDS (23.9-36.7)
[2019-10-15 05:29] LABS: Alanine Aminotransferase 12 U/L (0-33); Albumin Level 3.6 g/dL (3.5-5.2); Alkaline Phosphatase 64 IU/L (35-105); Aspartate Amino Transferase 18 U/L (0-32); Blood Urea Nitrogen 16 mg/dL (8-23); Calcium 8.2 mg/dL (8.5-10.5); Carbon Dioxide 24 mmol/L (22-29); Chloride 108 mmol/L (98-107); Globulin 1.8 g/dL (1.3-4.6); Glomerular Filtration Rate 73.2 mL/min (90-130); Glucose 162 mg/dL (65-115); Osmolality Calculated 288 mOsm/kg (285-295); Sodium 139 mmol/L (136-145); Total Bilirubin 0.3 mg/dL (0.15-1.2); Total Protein 5.4 g/dL (6.6-8.7)
[2019-10-15 05:33] LABS: Anion Gap 10.8 (5-19); Potassium 3.8 mmol/L (3.5-5.1)
--- NOTE | 2019-10-15 05:33 | PC.NURSE ---
[facility] notified of patients condition. Spoke with Wiley. Was told to expect a call back within 90 mins from initial call to hotline by MTS coordinator.
[2019-10-15 05:51] LABS: Magnesium 1.7 mg/dL (1.7-2.3)
--- NOTE | 2019-10-15 05:56 | PC.NURSE ---
MTS traveling sales representative placed a call back to unit. Spoke with her about patients condition, medical history, and code status. She advised a traveling sales representative would at some point come to work on building her chart. And asked for them to be updated of changes to medical status, family wishes, and to her code status. Contact Erna with further information @ .
--- NOTE | 2019-10-15 06:45 | PC.NURSE ---
Report given to oncoming RN. Patient has exhibited a [place] coma scale of 3 since 1899 yesterday. Sternal rubs, nail bed pressure, trapeze squeeze continued to give no response. [facility] was notified. {New contact is Kayleen Arora @ }. Pt pupils 4mm in size, with sluggish equal reactions noted. A total of 400mL of cloudy pink/yellow tinged U/O. 25mL output through OG. Currently remains on Vent with 40% FiO2, RR at 14. Fentanyl Bag is hanging in room unopened, but ready in the case of pain/alertness. Oncoming Nurse notified. D5 NS running at 75mL/hr. No sedation meds given. Home meds in pyxis.
--- NOTE | 2019-10-15 07:48 | PC.NURSE ---
RECEIVED REPORT FROM BOARD SAW RUNNER, DHEERAJ. PT REMAINS INTUBATED, GCS 3. REPOSITIONED. REMAINS RESTRAINED D/T INTUBATION. CURRENTLY NO SEDATION ON ORAL CARE DONE.
--- NOTE | 2019-10-15 08:18 | PC.NURSE ---
MTS BRANDON PURI RETURNED CALL STATING THAT AFTER REVIEWING CHART THAT PTS HISTORY OF MALIGNANT MELANOMA AUTOMATICALLY IS A RULE OUT FOR DONATION. BRANDON ASKED THAT WE STILL CALL WITH A TIME OF IF THINGS DON'T TURN AROUND FOR PT.
[2019-10-15] MEDS: atorvastatin 40 mg Tablet 20 MG PO (08:30)
--- NOTE | 2019-10-15 09:10 | PC.NURSE ---
RESP THERAPY HERE, VENT SETTING CHANGED TO CPAP TO CHECK IF PT IS BREATHING ON HER OWN. RESP RATE 12-13 WITH TIDAL VOLUME APPROX 350. DR MARTINEZ NOTIFIED BY RT & PT PUT BACK ON CMV
[2019-10-15] MEDS: dextrose 5%-sod chloride 0.45% 1,000 ML 75 ML IV (09:30)
[2019-10-15 11:09] LABS: Basophils % 0.5 %; Eosinophils # 0.1 10^3/uL (0.0-0.8); Eosinophils % 1.1 %; Hematocrit 34.2 % (37.0-47.0); Hemoglobin 10.5 g/dL (11.5-15.3); Lymphocytes # 1.8 10^3/uL (0.8-4.8); Lymphocytes % 28.8 %; Mean Corpuscular HGB Conc 30.7 g/dL (30.0-36.0); Mean Corpuscular Hemoglobin 28.5 pg (28.0-34.0); Mean Corpuscular Volume 92.7 fL (81-99); Mean Platelet Volume 10.3 fL (7.4-10.4); Monocytes # 0.8 10^3/uL (0.2-0.9); Monocytes % 12.5 %; Neutrophils # 3.57 10^3/uL (1.8-7.7); Neutrophils % 56.9 %; Nucleated Red Blood Cells % 0 %; Platelet Count 167 10^3/cmm (130-400); Red Blood Count 3.69 10^6/uL (4.1-5.3); Red Cell Distribution Width 13.1 % (12.1-15.1); White Blood Count 6.3 10^3/uL (4.0-10.0)
--- NOTE | 2019-10-15 14:40 | PC.NURSE ---
Repositioned patient to left side lying and elevated heels off of bed by placing pillows. Provided oral care via carlos kit brush and suctioning. Applied painful stimuli via nailbed pressure with no response.
--- NOTE | 2019-10-15 14:44 | PC.NURSE ---
received call from patient's daughter Lenore requesting update. I advised no changes since yesterday, still unresponsive and intubated. An EEG was recently done and results are pending.
[2019-10-15] MEDS: dexmedetomidine 400 MCG in sodium chloride 0.9% (100 ml) 100 ML IV (15:39)
--- NOTE | 2019-10-15 16:01 | PC.NURSE ---
In room for hourly rounds and assessment with another nurse. Attempted to rouse patient with no response. Applied painful stimuli with no response. While continuing to do the head to toe assessment, the patient opened her eyes and began to struggle against the ventilator. Would open her eys and look at you if directed. Patient was able to be calmed through orientation and direction, but would increasingly have bouts of agitation. Dr Perkins in room. Nurse requested RT present due to risk of self extubation. Dr Perkins ordered precedex and to start assessments for future extubation. Precedex started at 0.2 mcg/k/hour, agitation continued, increased precedex to 0.3. Patient is now resting comfortably.
[2019-10-15] MEDS: enoxaparin 40 mg/0.4 mL Syringe SUBCUT (16:37)
[2019-10-15] MEDS: cefTRIAXone 1,000 MG in sodium chloride 0.9% (plus) 50 ML 100 MG IV (16:37)
--- NOTE | 2019-10-15 16:49 | PM.PN ---
Subjective Subjective: Interval history: History and physical reviewed. When I visited with the patient earlier this morning, she was unresponsive. Since that time she has had purposeful movement, although I have yet to get her to follow direction. She has been agitated enough that has required initiation of Precedex for sedation. I visited with her family as well, regarding her medication usage and daughter assures me her Flexeril, tramadol, and Xanax are not taken on a scheduled basis. Medications: Reviewed: Yes Vitals/I&O/Wt Last Vital Signs Temp 98.1 F 10/15/19 14:00 Pulse 83 10/15/19 16:00 Resp 17 10/15/19 16:00 BP 112/74 10/15/19 16:00 Pulse Ox 95 10/15/19 16:00 10/15/19 10/15/19 10/15/19 06:59 14:59 22:59 Intake Total 105 / 760 1000 / 1000 Output Total 200 / 425 200 / 200 Balance -95 / 335 800 / 800 Weight last 48 hrs Weight 65.572 kg Weight 63.503 kg Physical Exam Narrative: EXAM NARRATIVE: General exam is a white female, who is pulling at tubes this afternoon. HEENT: Endotracheal tube is noted. Neck supple no lymphadenopathy Cardiovascular regular rate and rhythm, no murmur Lungs clear Abdomen is soft, positive bowel sounds Extremities no cyanosis clubbing or edema Neurologic: Now moving all 4 extremities. I could not get her to open her eyes to command, or follow direction but certainly her movement appears very purposeful, pulling at tubes and pushing nursing away. Skin no rash Urinary Catheter Management^: [place]: Cath Placed During This Visit: yes Reason for Continuing Indwelling Catheter: Accurate Measurement of Urinary Output in Critically Ill Patients Urinary Catheter Date of Insertion: 10/14/19 Data : 10/15/19 10:00 10/15/19 04:30 Micro: Microbiology 10/14/19 13:55 Blood Culture - Preliminary Blood NEGATIVE TO DATE 10/14/19 14:00 Blood Culture - Preliminary Blood NEGATIVE TO DATE 10/14/19 14:33 Gram Stain - Final Sputum - Endotracheal Tube Aspirate Sputum Culture - Preliminary A&P Assessment and plan (1) Acute encephalopathy: Acute toxic encephalopathy secondary to drug ingestion. Unknown medications ingested. Also had alcohol and THC on urine drug screen. CT head negative for any acute changes From emergency department physician evaluation she was found to be hypoxic in the field, but certainly was not when brought to the emergency department after being intubated. EEG has been performed when patient was unresponsive and preliminary is normal Currently agitated enough on the ventilator that Precedex will be initiated Status: Acute (2) Pneumonia: Presumed pneumonia. Currently on Rocephin and azithromycin. Awaiting repeat COVID, PTC. Rapid was negative Sputum culture Status: Acute (3) Anxiety and depression: Beside attempt. I will hold patient's Celexa, alprazolam as I am unsure which she took When she is extubated, consider 96-hour hold if she refuses to wait until psychiatric evaluation is performed affidavits were filled out by the emergency department physician as well as myself I reviewed patient's suicide note today. Status: Chronic (4) GERD (gastroesophageal reflux disease): Continue Protonix 40 mg IV daily. Status: Chronic Qualifiers: Esophagitis presence: esophagitis presence not specified Qualified Code(s): K21.9 - Gastro-esophageal reflux disease without esophagitis (5) Dyslipidemia: Continue atorvastatin 40 Mg oral daily. Status: Chronic Additional A&P Information Respiratory failure secondary to overdose. Ventilator settings reviewed. Consider extubation when she is able to follow commands. Precedex for sedation until then. History of seizure disorder. Continue patient's Keppra Full code DVT prophylaxis with Lovenox Attestations Medical Necessity Statement*: Needs continued hospitalization secondary to presumed overdose secondary to suicide attempt requiring endotracheal intubation and mechanical ventilation. Critical Care Time: 48 minutes spent in critical care time at bedside reviewing patient history, examining the patient, reviewing patient information with nursing, family, specialists, respiratory therapy in this patient with overdose that is life-threatening with significant chance of morbidity and mortality. Coding Level of Care Code Acute Mineral Surveying Technician for [facility] Fwd Diagnoses Acute encephalopathy G93.40 Pneumonia J18.9 Anxiety and depression F41.9; F32.9 GERD (gastroesophageal reflux disease) K21.9 Esophagitis presence: esophagitis presence not specified Dyslipidemia E78.5
[2019-10-15 17:07] LABS: ABG PCO2 40.5 mmHg (35-45); ABG PH Result 7.38 (7.35-7.45); Alveolar-Arterial Oxygen Gradi 18.8 mmHg (5-10); Arterial Blood Gas Hematocrit 35.9 % (37-47); Base Excess ABG -1.3 mmol/L (-2.0-2.0); Blood Gas Allen Test Pos; Blood Gas Sample Site Brachial, left; Blood Gas Sample Type Arterial; HCO3 ABG 23.8 mmol/L (22-26); HGB O2 Sat 95.1 % (95-100); Ionized Calcium Level - ABG 1.2 mmol/L (1.1-1.4); Methemoglobin 0.8 % (0.4-1.5); Oxygen Device VENT; Oxygen Saturation ABG 97.9; PO2 ABG 90.1 mmHg (80.0-100.0); Potassium Level - ABG 3.7 mmol/L (3.5-5.0); Total Hemoglobin 11.7 g/dL (12-16)
[2019-10-15] MEDS: sodium chloride 0.9% 500 ML 999 ML IV (18:18)
--- NOTE | 2019-10-15 18:18 | PM.MISC ---
Miscellaneous Note Purpose of Documentation: Electroencephalogram, bedside Note: ORDERING PHYSICIAN: Dr. Jaguar Perkins. REASON FOR STUDY: Patient in coma after drug overdose. STUDY: This was a 21 channel digital electroencephalogram performed using the 10-20 international system of electrode placement. This study was performed at the bedside on an unresponsive patient. FINDINGS: The patient appeared to be awake at the end of the tracing when photic stimulation was performed and after a bout of coughing. There was 9 Hz posterior activity consistent with alpha. Throughout the midportion of the tracing she appeared to be drowsy with central slowing in the theta range and intermittent arousal with posterior alpha at 9 Hz. Sleep was not seen. Photic stimulation produced a bilateral response in the occipital leads with maximum photic response at 10 hz. Hyperventilation was not done but the patient had a fit of coughing and appeared more alert. IMPRESSION: This was a normal EEG performed at the bedside in ICU, with no behavioral or electrographic epileptiform activity. The patient appeared to be exhibiting normal wakefulness which could portend a positive prognosis. Correlate clinically. Duration of EE.5 Addendum: I had reviewed this tracing and concluded that it was normal before Dr. Perkins notified me that a short time after this was completed the patient was awake and following commands.
--- NOTE | 2019-10-15 19:10 | PC.NURSE ---
Patient was on 0.2 mcg/k/hr of precedex and was sedated. Nurse noted some crackles to the lungs and suctioned patient. Patient became agitated and was thrashing about. Orientation and reassurance failed to calm the patient as it had before. Precedex was increased to 0.3 and patient became calm.
[2019-10-15 19:24] LABS: Coronavirus Lab Test PTC Negative
[2019-10-15] MEDS: azithromycin 500 MG in sodium chloride 0.9% 250 ML 250 MG IV (19:28)
[2019-10-15] MEDS: dextrose 5%-sod chloride 0.45% 1,000 ML 100 ML IV (21:55)
[2019-10-16] VITALS (92 sets, daily range): BP systolic 117–189; BP diastolic 66–93; PULSE 57–91; RESP 16–26; TEMP 36.3–37.1; O2SAT 93–100; BMI 24.7
[2019-10-16] MEDS: sodium chloride 0.9% 250 ML IV (03:00)
--- NOTE | 2019-10-16 03:46 | PC.NURSE ---
patient daughter called regarding condition update, nurse notified family of changes and anticipated plan of care. Daughter verbalized understanding.
[2019-10-16 03:54] LABS: Basophils % 0.4 %; Eosinophils # 0.1 10^3/uL (0.0-0.8); Eosinophils % 0.8 %; Hematocrit 37.7 % (37.0-47.0); Hemoglobin 11.9 g/dL (11.5-15.3); Lymphocytes # 1.9 10^3/uL (0.8-4.8); Lymphocytes % 25.9 %; Mean Corpuscular HGB Conc 31.6 g/dL (30.0-36.0); Mean Corpuscular Hemoglobin 28.3 pg (28.0-34.0); Mean Corpuscular Volume 89.8 fL (81-99); Mean Platelet Volume 9.9 fL (7.4-10.4); Monocytes # 0.7 10^3/uL (0.2-0.9); Monocytes % 9.1 %; Neutrophils # 4.54 10^3/uL (1.8-7.7); Neutrophils % 63.5 %; Nucleated Red Blood Cells % 0 %; Platelet Count 176 10^3/cmm (130-400); Red Cell Distribution Width 12.7 % (12.1-15.1); White Blood Count 7.2 10^3/uL (4.0-10.0)
[2019-10-16 04:01] LABS: Alanine Aminotransferase 11 U/L (0-33); Albumin Level 3.2 g/dL (3.5-5.2); Alkaline Phosphatase 81 IU/L (35-105); Anion Gap 8.7 (5-19); Aspartate Amino Transferase 18 U/L (0-32); Blood Urea Nitrogen 10 mg/dL (8-23); Calcium 8.9 mg/dL (8.5-10.5); Carbon Dioxide 24 mmol/L (22-29); Chloride 108 mmol/L (98-107); Globulin 2.6 g/dL (1.3-4.6); Glucose 152 mg/dL (65-115); Osmolality Calculated 283 mOsm/kg (285-295); Potassium 3.7 mmol/L (3.5-5.1); Sodium 137 mmol/L (136-145); Total Bilirubin 0.3 mg/dL (0.15-1.2); Total Protein 5.8 g/dL (6.6-8.7)
[2019-10-16] MEDS: dextrose 5%-sod chloride 0.45% 1,000 ML 100 ML IV ×2 (05:12→17:18)
[2019-10-16 05:42] LABS: ABG PCO2 40.4 mmHg (35-45); ABG PH Result 7.38 (7.35-7.45); Arterial Blood Gas Hematocrit 36.6 % (37-47); Base Excess ABG -1.2 mmol/L (-2.0-2.0); Blood Gas Sample Site Brachial, right; Blood Gas Sample Type Arterial; HCO3 ABG 23.8 mmol/L (22-26); Oxygen Device VENT; PO2 ABG 89.5 mmHg (80.0-100.0)
--- NOTE | 2019-10-16 07:47 | P.PN_ITS ---
Subjective Subjective: Interval history: Tejal is awake, and following directions. Still intubated. Medications: Reviewed: Yes Vitals/I&O/Wt Last Vital Signs Temp 97.8 F 10/16/19 04:15 Pulse 58 L 10/16/19 06:35 Resp 17 10/16/19 07:29 BP 151/73 10/16/19 06:35 Pulse Ox 97 10/16/19 06:35 10/15/19 10/16/19 10/16/19 22:59 06:59 14:59 Intake Total 1171.122 / 2171.122 1728.333 / 3899.455 Output Total 100 / 300 350 / 650 400 / 400 Balance 1071.122 / 0273.736 2369.333 / 3249.455 -400 / -400 Weight last 48 hrs Weight 65.572 kg Weight 65.572 kg Weight 63.503 kg Physical Exam Narrative: EXAM NARRATIVE: General exam is a white female, alert and intubated, following directions Neck supple no lymphadenopathy Cardiovascular regular rate and rhythm, no murmur Lungs clear Abdomen is soft, positive bowel sounds Extremities no cyanosis clubbing or edema Neurologic: No obvious focal deficits Urinary Catheter Management^: Malagon: Cath Placed During This Visit: yes Reason for Continuing Indwelling Catheter: Accurate Measurement of Urinary Output in Critically Ill Patients Urinary Catheter Date of Insertion: 10/14/19 Data : 10/16/19 03:00 10/16/19 03:00 Micro: Microbiology 10/14/19 13:55 Blood Culture - Preliminary Blood NEGATIVE TO DATE 10/14/19 14:00 Blood Culture - Preliminary Blood NEGATIVE TO DATE 10/14/19 14:33 Gram Stain - Final Sputum - Endotracheal Tube Aspirate Sputum Culture - Preliminary Other data: Chest x-ray reviewed. Left lower lobe atelectasis versus minimal infiltrate. A&P Assessment and plan (1) Acute encephalopathy: Acute toxic encephalopathy secondary to drug ingestion. Unknown medications ingested. Also had alcohol and THC on urine drug screen. CT head negative for any acute changes From emergency department physician evaluation she was found to be hypoxic in the field, but certainly was not when brought to the emergency department after being intubated. EEG has been performed when patient was unresponsive and preliminary is normal She is now following directions. Status: Acute (2) Pneumonia: Presumed pneumonia. Currently on Rocephin and azithromycin. Rapid and PTC COVID negative Sputum culture Status: Acute (3) Anxiety and depression: Suicide attempt. I will hold patient's Celexa, alprazolam as I am unsure which she took 96-hour hold Psychiatry consultation Status: Chronic (4) GERD (gastroesophageal reflux disease): Continue Protonix 40 mg IV daily Until she can take p.o. Status: Chronic Qualifiers: Esophagitis presence: esophagitis presence not specified Qualified Code(s): K21.9 - Gastro-esophageal reflux disease without esophagitis (5) Dyslipidemia: Continue atorvastatin 40 Mg oral daily. Status: Chronic Additional A&P Information Respiratory failure secondary to overdose. Not following directions. Extubate. History of seizure disorder. Continue patient's Keppra. Change to p.o. 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
--- NOTE | 2019-10-16 08:10 | PC.NURSE ---
0730- VENT WAS ALARMING, UPON ENTERING ROOM PT HAD GRABBED TUBING & HAD PULLED IT FROM ET TUBE. RECONNECTED & ARMS RESTRAINED THEN TIGHTENED DOWN. ABLE TO REDIRECT PT. RT IN ROOM, SUCTIONED WITH PLANS TO EXTUBATE AFTER DR MARTINEZ ROUNDS WITH HER. 0800- PT EXTUBATED BY RESP THERAPY. NC @ 2L PLACED ON CLT. RESTRAINTS REMOVED.REORIENTED PT TO SURROUNDINGS & WHY SHE IS HERE. DR MARTINEZ BACK IN ROOM BUT PT DOESN'T TALK TO HIM. PRECEDEX OFF.
[2019-10-16] MEDS: atorvastatin 40 mg Tablet 20 MG PO (12:21)
[2019-10-16] MEDS: pantoprazole 40 mg SDV IVP (12:21)
--- NOTE | 2019-10-16 13:19 | PC.RESP ---
Smoking Cessation information and a schedule of classes sent to patient.
--- NOTE | 2019-10-16 16:24 | PC.NURSE ---
Pt was able to sit on the side of the bed, stood up, and took steps to the chair where she sat before deciding she was ready to return to bed. Assistance X2 required for all activities.
[2019-10-16] MEDS: cefTRIAXone 1,000 MG in sodium chloride 0.9% (plus) 50 ML 100 MG IV (17:17)
[2019-10-16] MEDS: enoxaparin 40 mg/0.4 mL Syringe SUBCUT (17:18)
--- NOTE | 2019-10-16 19:00 | XR_ITS ---
WS: [id number] Portable AP semiupright chest, 10/16/2019 Clinical Data: Follow-up respiratory failure Comparison: Portable chest, 10/15/2019 Findings: The endotracheal tube remains above the rani and the nasogastric tube ends in the region of the stomach. No nodules, masses or effusions are seen. The heart is normal. The pulmonary vascular ity is slightly increased. No pneumonia or pneumothorax is seen. Basilar opacities are present which may represent atelectasis or minimal pneumonia. Monitor leads are on the chest wall. XR/XR chest 1V portable [id number] Impression: 1. No change in basilar opacities and/or atelectasis. 2. Satisfactory position of endotracheal tube and oral gastric tube. 3. Mild pulmonary vascular congestion.
[2019-10-16] MEDS: azithromycin 500 MG in sodium chloride 0.9% 250 ML 250 MG IV (19:15)
[2019-10-17] VITALS (11 sets, daily range): BP systolic 139–189; BP diastolic 60–96; PULSE 76–103; RESP 15–25; TEMP 36.3–36.9; O2SAT 91–98; BMI 24.7
[2019-10-17] MEDS: dextrose 5%-sod chloride 0.45% 1,000 ML 100 ML IV ×2 (05:30→12:53)
[2019-10-17] MEDS: fixodent 39 gm Tube 1 APPLIC DENTAL (07:27)
[2019-10-17] MEDS: pantoprazole 40 mg SDV IVP (08:52)
[2019-10-17] MEDS: atorvastatin 40 mg Tablet 20 MG PO (08:52)
--- NOTE | 2019-10-17 09:48 | P.PN_ITS ---
Subjective Subjective: Interval history: No acute event overnight. Patient is conversing well. Has no suicidal ideation. She wants to go home. We will transfer her to psych unit in the morning. Vitals, labs and medication reviewed Medications: Reviewed: Yes Vitals/I&O/Wt Last Vital Signs Temp 97.8 F 10/17/19 08:00 Pulse 100 10/17/19 08:00 Resp 25 H 10/17/19 08:00 BP 159/72 10/17/19 08:00 Pulse Ox 95 10/17/19 08:00 10/16/19 10/17/19 10/17/19 22:59 06:59 14:59 Intake Total 1445 / 1646.6 1755 / 3401.6 400 / 400 Output Total 815 / 2565 400 / 2965 700 / 700 Balance 630 / -918.4 1355 / 436.6 -300 / -300 Weight last 48 hrs Weight 65.572 kg Weight 65.572 kg Physical Exam Narrative: EXAM NARRATIVE: Currently patient is intubated with GCS of 8T off sedation. Const: COMMON NORMALS: patient oriented x3 HENMT: COMMON NORMALS: normocephalic, atraumatic, hearing grossly normal bilaterally and external ears normal HEAD & SCALP: normocephalic and atraumatic EXTERNAL EAR: Yes external ears normal Eye: COMMON NORMALS: no scleral icterus GENERAL EYE: appearance normal, bot h eyes and all related structures Chest: COMMONS NORMALS: normal inspection of the chest and normal palpation of entire chest wall CHEST: Yes Symmetrical chest wall rise Resp: COMMON NORMALS: normal respiratory effort, No retractions, No use of accessory muscles and clear to auscultation bilaterally EFFORT & INSPECTION: Yes symmetric chest movement AUSCULTATION: clear to auscultation bilaterally Cardio: COMMON NORMALS: regular rate, regular rhythm, S1 normal heart sound present, S2 normal heart sound present, No gallops present (Cardio), No murmurs present (Cardio), No rub (Cardio) and Peripheral pulses 2+ throughout RATE: regular rate RHYTHM: regular rhythm HEART SOUNDS: S1 normal heart sound present and S2 normal heart sound present PERIPHERAL PULSES: Peripheral pulses 2+ throughout GI: COMMON NORMALS: Normal to inspection, nondistended, normoactive bowel sounds present, Soft to palpation, non-tender, No hepatosplenomegaly present and no masses AUSCULTATION: Yes normoactive bowel sounds PALPATION: Yes Soft to palpation and Yes No hepatosplenomegaly present RECTAL EXAM: deferred Extremity: COMMON NORMALS: no clubbing, cyanosis or edema and no pedal edema Neuro: COMMON NORMALS: patient oriented x3 Urinary Catheter Management^: Malagon: Cath Placed During This Visit: yes, but has since been removed by the nurse Reason for Continuing Indwelling Catheter: Decision to DC Catheter Urinary Catheter Date of Insertion: 10/14/19 Date Urinary Catheter Removed: 10/16/19 Time Urinary Catheter Discontinued: 16:55 Data : 10/17/19 10:02 10/16/19 03:00 Micro: Microbiology 10/14/19 14:14 Urine Culture - Final Urine,Clean Catch 10/14/19 14:33 Gram Stain - Final Sputum - Endotracheal Tube Aspirate Sputum Culture - Final A&P Assessment and plan (1) Acute encephalopathy: Acute toxic encephalopathy secondary to drug ingestion. Unknown medications ingested. Also had alcohol and THC on urine drug screen. CT head negative for any acute changes From emergency department physician evaluation she was found to be hypoxic in the field, but certainly was not when brought to the emergency department after being intubated. EEG has been performed when patient was unresponsive and preliminary is normal She is now following directions. Status: Resolved (2) Pneumonia: Presumed pneumonia. Currently on Rocephin and azithromycin. Rapid and PTC COVID negative Sputum culture Status: Acute (3) Anxiety and depression: Suicide attempt. I will hold patient's Celexa, alprazolam as I am unsure which she took 96-hour hold Psychiatry consultation Status: Chronic (4) GERD (gastroesophageal reflux disease): Continue Protonix 40 mg IV daily Until she can take p.o. Status: Chronic Qualifiers: Esophagitis presence: esophagitis presence not specified Qualified Code(s): K21.9 - Gastro-esophageal reflux disease without esophagitis (5) Dyslipidemia: Continue atorvastatin 40 Mg oral daily. Status: Chronic Additional A&P Information Respiratory failure secondary to overdose. s/p Extubation. . History of seizure disorder. Continue patient's Keppra. Imaging Studies: C.T Head: No acute intracranial pathology Xray chest : 11/14: No change in basilar opacities and/or atelectasis. Full code DVT prophylaxis with Lovenox Attestations Medical Necessity Statement*: SHe needs inpatient psychiatry evaluation. We will transfer her to psych tomorrow. 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
[2019-10-17 10:12] LABS: Basophils % 0.4 %; Eosinophils # 0.1 10^3/uL (0.0-0.8); Hematocrit 36.5 % (37.0-47.0); Hemoglobin 11.8 g/dL (11.5-15.3); Lymphocytes # 1.4 10^3/uL (0.8-4.8); Mean Corpuscular HGB Conc 32.3 g/dL (30.0-36.0); Mean Corpuscular Hemoglobin 28.4 pg (28.0-34.0); Mean Platelet Volume 9.5 fL (7.4-10.4); Monocytes # 0.7 10^3/uL (0.2-0.9); Monocytes % 9.5 %; Neutrophils # 4.78 10^3/uL (1.8-7.7); Neutrophils % 68.8 %; Nucleated Red Blood Cells % 0 %; Platelet Count 178 10^3/cmm (130-400); Red Blood Count 4.15 10^6/uL (4.1-5.3); Red Cell Distribution Width 11.9 % (12.1-15.1)
--- NOTE | 2019-10-17 11:14 | PC.NURSE ---
Ambulation trial patient ambulated via walker with nurse. Walked two laps around ICU nurses station. patient tolerated walk well. Vital signs WNL after ambulation. Will continue to monitor.
[2019-10-17 13:07] LABS: Levetiracetam Keppra 14.4 mcg/mL
--- NOTE | 2019-10-17 13:40 | PC.SOCIAL ---
IMM completed on 10/17/2019 @ 7281. Copy of rights were given to pt.
[2019-10-17] MEDS: nicotine 21 mg Patch 1 PATCH TRANSDERMA (14:45)
[2019-10-17] MEDS: cefTRIAXone 1,000 MG in sodium chloride 0.9% (plus) 50 ML 100 MG IV (17:46)
[2019-10-17] MEDS: enoxaparin 40 mg/0.4 mL Syringe SUBCUT (17:46)
[2019-10-18] VITALS (15 sets, daily range): BP systolic 131–192; BP diastolic 72–101; PULSE 81–102; RESP 18–19; TEMP 36.7–36.9; O2SAT 91–97; BMI 25.4
[2019-10-18] MEDS: dextrose 5%-sod chloride 0.45% 1,000 ML 100 ML IV (01:50)
[2019-10-18] MEDS: hyDRALAzine 20 mg/mL INJ 1 mL 10 MG IVP (06:35)
[2019-10-18] MEDS: acetaminophen 325 mg Tablet 650 MG PO (08:38)
[2019-10-18] MEDS: atorvastatin 40 mg Tablet 20 MG PO (08:39)
[2019-10-18] MEDS: nicotine 21 mg Patch 1 PATCH TRANSDERMA (08:39)
--- NOTE | 2019-10-18 12:17 | P.PN_ITS ---
Subjective Subjective: Interval history: No acute events overnight. Patient was discussed with Dr. Alcaraz. And now she is being transferred to [place] emergency department for 96- hour hold. Vitals reviewed. Medications: Reviewed: Yes Vitals/I&O/Wt Last Vital Signs Temp 98.4 F 10/18/19 10:00 Pulse 101 H 10/18/19 10:00 Resp 18 10/18/19 10:00 BP 166/84 10/18/19 10:00 Pulse Ox 94 10/18/19 07:52 10/17/19 10/18/19 10/18/19 22:59 06:59 14:59 Intake Total 1105 / 2543.333 400 / 400 Output Total 350 / 1800 150 / 1950 Balance 755 / 743.333 -150 / 593.333 400 / 400 Weight last 48 hrs Weight 67.222 kg Weight 65.572 kg Physical Exam Narrative: EXAM NARRATIVE: Currently patient is intubated with GCS of 8T off sedation. Const: COMMON NORMALS: patient oriented x3 HENMT: COMMON NORMALS: normocephalic, atraumatic, hearing grossly normal bilaterally and external ears normal HEAD & SCALP: normocephalic and atraumatic EXTERNAL EAR: Yes external ears normal Eye: COMMON NORMALS: no scleral icterus GENERAL EYE: appearance normal, both eyes and all related structures Chest: COMMONS NORMALS: normal inspection of the chest and normal palpation of entire chest wall CHEST: Yes Symmetrical chest wall rise Resp: COMMON NORMALS: normal respiratory effort, No retractions, No use of accessory muscles and clear to auscultation bilaterally EFFORT & INSPECTION: Yes symmetric chest movement AUSCULTATION: clear to auscultation bilaterally Cardio: COMMON NORMALS: regular rate, regular rhythm, S1 normal heart sound present, S2 normal heart sound present, No gallops present (Cardio), No murmurs present (Cardio), No rub (Cardio) and Peripheral pulses 2+ throughout RATE: regular rate RHYTHM: regular rhythm HEART SOUNDS: S1 normal heart sound present and S2 normal heart sound present PERIPHERAL PULSES: Peripheral pulses 2+ throughout GI: COMMON NORMALS: Normal to inspection, nondistended, normoactive bowel sounds present, Soft to palpation, non-tender, No hepatosplenomegaly present and no masses AUSCULTATION: Yes normoactive bowel sounds PALPATION: Yes Soft to palpation and Yes No hepatosplenomegaly present RECTAL EXAM: deferred : COMMON NORMALS: Yes no CVA tenderness BLADDER/KIDNEY EXAM: Yes no CVA tenderness Back/Pelvis: COMMON NORMALS: no CVA tenderness Extremity: COMMON NORMALS: no clubbing, cyanosis or edema and no pedal edema Neuro: COMMON NORMALS: patient oriented x3 Urinary Catheter Management^: Malagon: Cath Placed During This Visit: yes, but has since been removed by the nurse Reason for Continuing Indwelling Catheter: Decision to DC Catheter Urinary Catheter Date of Insertion: 10/14/19 Date Urinary Catheter Removed: 10/16/19 Time Urinary Catheter Discontinued: 16:55 Data : 10/17/19 10:02 10/16/19 03:00 Micro: Microbiology 10/14/19 14:14 Urine Culture - Final Urine,Clean Catch A&P Assessment and plan (1) Acute encephalopathy: Acute toxic encephalopathy secondary to drug ingestion. Unknown medications ingested. Also had alcohol and THC on urine drug screen. CT head negative for any acute changes From emergency department physician evaluation she was found to be hypoxic in the field, but certainly was not when brought to the emergency department after being intubated. EEG has been performed when patient was unresponsive and preliminary is normal She is now following directions. Status: Resolved (2) Pneumonia: Presumed pneumonia. Currently on Rocephin and azithromycin. Rapid and PTC COVID negative Sputum culture Status: Resolved (3) Anxiety and depression: Suicide attempt. I will hold patient's Celexa, alprazolam as I am unsure which she took 96-hour hold Psychiatry consultation Status: Chronic (4) GERD (gastroesophageal reflux disease): Continue Protonix 40 mg IV daily Until she can take p.o. Status: Chronic Qualifiers: Esophagitis presence: esophagitis presence not specified Qualified Code(s): K21.9 - Gastro-esophageal reflux disease without esophagitis (5) Dyslipidemia: Continue atorvastatin 40 Mg oral daily. Status: Chronic Additional A&P Information Respiratory failure secondary to overdose. s/p Extubation. . History of seizure disorder. Continue patient's Keppra. Imaging Studies: C.T Head: No acute intracranial pathology Xray chest : 11/14: No change in basilar opacities and/or atelectasis. Full code DVT prophylaxis with Lovenox Attestations Medical Necessity Statement*: Patient is on 96-hour hold and she is being transferred to Neuropsych Unit. 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
--- NOTE | 2019-10-18 17:03 | PC.NURSE ---
Patient trans to NPU. Daughter Rosibel notified. Patients medication and clothing removed from med storage and given to nurse in NPU. IV to left wrist removed intact, no redness or S/s of infection noted.
[2019-10-18] MEDS: levETIRAcetam 500 mg Tablet PO (19:08)
[2019-10-18] MEDS: cetirizine 10 mg Tablet PO (21:59)
--- NOTE | 2019-10-18 22:24 | PC.NURSE ---
Called Dr. Rogers @[phone] for allergy medication to relieve her symptoms of coughing due to sinus drainage.Patient is having a hard time resting. she has seasonal allergies and is coughing up clear sputum. She reports having a tickle in her throat. She is pleasant and easy to engage Dr Rogers started her on zyrtec 10mg PO daily.
[2019-10-19] MEDS: acetaminophen 325 mg Tablet 650 MG PO (03:00)
--- NOTE | 2019-10-19 03:01 | PC.NURSE ---
PRN Tylenol 650mg PO given for pain in throat/chest. Rated pain at a 8 on a pain scale of 1-10. Patient is pale, coughing up thick clear/white mucus. Complaining of headache, sinus areas on each side of nose is somewhat swollen/painful to touch. Her throat is sore on the right side near the base of her neck. Listened to her lungs with stethoscope and contacted charge nurse Giancarlo to listen to her as well. Her lungs sounds are slightly diminished. Cough is aggrevated on expiration. Patient was given Zyrtec 10mg PO at 21:59. She was given some ice water which seems to help some with the cough. She is sitting upright in her bed. She has not rested well at all
--- NOTE | 2019-10-19 03:15 | PC.NURSE ---
Nicotine patch removed
--- NOTE | 2019-10-19 03:33 | PC.NURSE ---
Concerned about this patient's cough. Vital Signs taken at 03:34 were T 97.6 orally, 146/94, SPO2is 95% on RA with patient sitting, and HR 112 RR 22 wt is 137.8. She is coughing almost non-stop and producing clear thick mucus.
[2019-10-19 03:44] VITALS: BP 146/94; PULSE 112; RESP 22; TEMP 35.9; O2SAT 95
[2019-10-19] MEDS: diphenhydrAMINE 50 mg/mL SDV 1mL IM ×2 (04:06→04:24)
--- NOTE | 2019-10-19 04:24 | PC.NURSE ---
Physician Dr. Rogers called regarding patients cough and sinus symptoms. He directed us to go ahead and give a benedryl 50MG PO one time now unless patient was fine with a shot of the same medication. Patient was given the choice or drug route. She chose the IM injection and received Benedryl 50MG IM@04:24 in the left deltoid. I will continue to monitor the patient for symptomatic relief.
[2019-10-19 06:00] VITALS: BP 146/94; PULSE 112; RESP 22; TEMP 36.4; O2SAT 95
[2019-10-19] MEDS: cetirizine 10 mg Tablet PO (09:15)
[2019-10-19] MEDS: levETIRAcetam 500 mg Tablet PO ×2 (09:15→21:37)
[2019-10-19] MEDS: nicotine 21 mg Patch 1 PATCH TRANSDERMA (09:15)
[2019-10-19] MEDS: atorvastatin 40 mg Tablet 20 MG PO (09:15)
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
[2019-10-19] MEDS: citalopram 20 mg Tablet PO (13:29)
[2019-10-19 14:00] VITALS: BP 148/90; PULSE 108; RESP 18; TEMP 37.1; O2SAT 97
[2019-10-19] MEDS: hyDROXYzine 25 mg Capsule 50 MG PO (21:37)
[2019-10-19 22:00] VITALS: BP 162/84; PULSE 103; RESP 16; TEMP 37; O2SAT 94
--- NOTE | 2019-10-19 22:30 | PC.NURSE ---
pt given scheduled keppra and prn vistaril for anxiety per pt request.
--- NOTE | 2019-10-20 02:29 | PC.NURSE ---
Patient has not slept much this evening. We needed to move her to another room and she has been working on a puzzle book. She does not want anything to help her sleep at this time. She seems pleasant and content at this time
[2019-10-20 06:00] VITALS: BP 148/85; PULSE 105; RESP 17; TEMP 36.2; O2SAT 95
--- NOTE | 2019-10-20 06:04 | PC.NURSE ---
pt has slept only scattered times this night. pt states she had short catnaps, and can't sleep for long periods of time.
[2019-10-20] MEDS: cetirizine 10 mg Tablet PO (09:02)
[2019-10-20] MEDS: citalopram 20 mg Tablet PO (09:02)
[2019-10-20] MEDS: levETIRAcetam 500 mg Tablet PO (09:02)
[2019-10-20] MEDS: nicotine 21 mg Patch 1 PATCH TRANSDERMA (09:02)
[2019-10-20] MEDS: atorvastatin 40 mg Tablet 20 MG PO (09:03)
[2019-10-20 13:44] VITALS: BP 121/77; PULSE 105; RESP 18; TEMP 36.9; O2SAT 95
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
[2019-10-20 15:54] VITALS: BP 121/77; PULSE 105; RESP 18; TEMP 36.9; O2SAT 95
== END 2019-10-20 16:03 | disposition home or self-care (01) | DRG 917 ==
LOC: ER 14:48 → ICU 16:10 → MEDSURG 10-17 15:02 → NP 10-18 16:54
PROVIDERS: Family Medicine; Internal Medicine; Admitting Provider Internal Medicine; Visit Provider Psychiatry & Neurology Psychiatry
DX: T65.92XA Toxic effect of unspecified substance, intentional self-harm, initial encounter (principal); G92 Toxic encephalopathy; J69.0 Pneumonitis due to inhalation of food and vomit; J96.90 Respiratory failure, unspecified, unspecified whether with hypoxia or hypercapnia; R45.851 Suicidal ideations; G40.909 Epilepsy, unspecified, not intractable, without status epilepticus; F41.8 Other specified anxiety disorders; Z85.3 Personal history of malignant neoplasm of breast; E78.5 Hyperlipidemia, unspecified; K21.9 Gastro-esophageal reflux disease without esophagitis; Z85.820 Personal history of malignant melanoma of skin; F17.210 Nicotine dependence, cigarettes, uncomplicated; F12.90 Cannabis use, unspecified, uncomplicated; Z72.89 Other problems related to lifestyle; Z81.8 Family history of other mental and behavioral disorders; Z92.3 Personal history of irradiation
CPT/HCPCS: 12345; 36415; 36416; 36600; 70450; 71045; 80051; 80053; 80177; 80306; 80307; 81001; 82009; 82140; 82550; 82803; 82810; 82962; 83605; 83735; 83986; 84484; 85025; 85610; 85730; 87040; 87070; 87086; 87205; 87426; 87635; 93005; 93306; 94002; 94003; 94799; 96372; 96375; 99283; C9113; J0360; J0456; J0696; J1200; J1650; J1953; J2704; J3490; J7030; J7040; J7050; J7799

== ENCOUNTER → 2019-11-14 13:26 | Outpatient (BNVA) | payer MEDICARE, MEDICAID, SELFPAY | PROVIDERS: Visit Provider Psychiatry & Neurology Psychiatry | DX: F33.2 Major depressive disorder, recurrent severe without psychotic features (principal); F41.1 Generalized anxiety disorder; F17.200 Nicotine dependence, unspecified, uncomplicated; F15.11 Other stimulant abuse, in remission; F12.11 Cannabis abuse, in remission | CPT/HCPCS: 99204 ==

== ENCOUNTER → 2019-12-10 07:39 | Outpatient (BNVA) | payer MEDICARE, MEDICAID, SELFPAY | PROVIDERS: Visit Provider Psychiatry & Neurology Psychiatry | DX: F41.1 Generalized anxiety disorder (principal); F33.2 Major depressive disorder, recurrent severe without psychotic features; F12.11 Cannabis abuse, in remission; F15.11 Other stimulant abuse, in remission | CPT/HCPCS: 99213 ==

== ENCOUNTER → 2020-02-20 08:45 | Outpatient (BNVA) | payer MEDICARE, MEDICAID, SELFPAY | PROVIDERS: Visit Provider Family Medicine | DX: R68.89 Other general symptoms and signs (principal); R50.9 Fever, unspecified | CPT/HCPCS: 87400; 87635 ==

== ENCOUNTER → 2020-03-03 08:18 | Outpatient (BNVA) | payer MEDICARE, MEDICAID, SELFPAY | PROVIDERS: Visit Provider Psychiatry & Neurology Psychiatry | DX: F41.1 Generalized anxiety disorder (principal); F33.2 Major depressive disorder, recurrent severe without psychotic features; F12.11 Cannabis abuse, in remission; F15.11 Other stimulant abuse, in remission; F17.210 Nicotine dependence, cigarettes, uncomplicated | CPT/HCPCS: 99213 ==

== ENCOUNTER 2020-04-27 14:32 | Outpatient (RCR) | payer MEDICARE, MEDICAID, SELFPAY | END 2020-05-05 23:59 | disposition home or self-care (01) | LOC: SPT 14:32 | PROVIDERS: PCP Family Medicine; Visit Provider Family Medicine | DX: S46.819D Strain of other muscles, fascia and tendons at shoulder and upper arm level, unspecified arm, subsequent encounter (principal); X58.XXXD Exposure to other specified factors, subsequent encounter | CPT/HCPCS: 97110; 97161 ==

== ENCOUNTER 2020-05-06 06:00 | Outpatient (RCR) | payer MEDICARE, MEDICAID, SELFPAY | END 2020-06-04 23:59 | disposition home or self-care (01) | LOC: SPT 06:00 | PROVIDERS: PCP Family Medicine; Visit Provider Family Medicine | DX: Z46.89 Encounter for fitting and adjustment of other specified devices (principal); S46.819D Strain of other muscles, fascia and tendons at shoulder and upper arm level, unspecified arm, subsequent encounter; X58.XXXD Exposure to other specified factors, subsequent encounter | CPT/HCPCS: 97110 ==

== ENCOUNTER 2020-06-05 06:00 | Outpatient (RCR) | payer MEDICARE, MEDICAID, SELFPAY | END 2020-07-05 23:59 | disposition home or self-care (01) | LOC: SPT 06:00 | PROVIDERS: PCP Family Medicine; Visit Provider Family Medicine | DX: S46.819D Strain of other muscles, fascia and tendons at shoulder and upper arm level, unspecified arm, subsequent encounter (principal); X58.XXXD Exposure to other specified factors, subsequent encounter | CPT/HCPCS: 97110 ==

== ENCOUNTER 2021-02-22 08:33 | Outpatient (CLI) | payer MEDICARE, MEDICAID, SELFPAY ==
--- NOTE | 2021-02-22 08:38 | CT_ITS ---
WS: [id number] CT ANGIOGRAM CAROTID ARTERIES HISTORY: BILATERAL CAROTID ARTERY STENOSIS TECHNIQUE: CT angiogram is performed of the carotid arteries. During arterial injection imaging is ob tained from the skull base to the aortic arch in 1.25 mm imaging. Coronal and sagittal reformats are submitted, MIP imaging also reviewed. Additional multiplanar reformats of the carotid arteries are rosas bmitted. NASCET criteria utilized. All CT scans at [facility] use at least one of these dose optimization techniques: automated exposure control; mA and/or kV adjustment per patient size (includ es targeted exams where dose is matched to clinical indication); or iterative reconstruction. CONTRAST: Omnipaque 350; 95 mL IV. DLP: 1747.95 mGy.cm COMPARISON: 05/07/2018 Right carotid: Common carotid artery: Arises normally from the innominate artery. No significant plaque or stenosis. Internal carotid artery: Calcified plaque and intimal thickening at the carotid bifurcation. Stenosis calculated at 56%. External carotid artery: Patent. Left carotid: Common carotid artery: Arises normally from the aortic arch. No significant stenosis. Internal carotid artery: Mild intimal thickening. Scattered calcified plaque. Stenosis cannot 65%. External carotid artery: Patent. Right vertebral artery: Dominant. No stenosis. Left vertebral artery: Unremarkable. Arises normally from the left subclavian artery. Subclavian arteries: RIGHT subclavian arteries normal caliber. Partial obscuration of the LEFT subcla vian by contrast injection. Upper thorax: Chronic emphysematous changes at the lung apices. Extensive centrilobular emphysema. Thyroid gland: Normal. Osseous structures: Unremarkable. Skull base: At the skull base moderate calcified plaque is demonstrated throughout the intracranial c arotid arteries. No stenosis. CT/CT angio neck [id number] IMPRESSION: 1. Mild progression of cervical carotid artery stenosis since 05/07/2018. 2. LEFT ICA stenosis 65%. 3. RIGHT ICA stenosis 56%.
[2021-02-22 09:32] LABS: Blood Urea Nitrogen 14 mg/dL (8-23); Glomerular Filtration Rate 85.1 mL/min (90-130)
[2021-02-22] MEDS: iohexol 350 mg/mL 100 mL Btl IV (10:01)
== END 2021-02-22 08:34 | disposition home or self-care (01) ==
LOC: RAD 08:37
PROVIDERS: PCP Family Medicine; Visit Provider Family Medicine
DX: I65.23 Occlusion and stenosis of bilateral carotid arteries (principal)
CPT/HCPCS: 36415; 70498; 82565; 84520

== ENCOUNTER → 2021-04-04 10:52 | Outpatient (BNVA) | payer MEDICARE, MEDICAID, SELFPAY | PROVIDERS: PCP Family Medicine; Referring Provider Family Medicine; Visit Provider Specialist | DX: G43.711 Chronic migraine without aura, intractable, with status migrainosus (principal); G25.0 Essential tremor; G31.84 Mild cognitive impairment of uncertain or unknown etiology; M26.622 Arthralgia of left temporomandibular joint; J43.1 Panlobular emphysema; R56.9 Unspecified convulsions; F17.210 Nicotine dependence, cigarettes, uncomplicated | CPT/HCPCS: 99204 ==

== ENCOUNTER 2022-02-17 08:21 | Outpatient (CLI) | payer MEDICARE, MEDICAID, SELFPAY ==
--- NOTE | 2022-02-17 09:09 | MM_ITS ---
WS: [id number] DIAGNOSTIC BILATERAL DIGITAL BREAST TOMOSYNTHESIS MAMMOGRAPHY WITH CAD HISTORY: HX OF BREAST CA COMPARISON: 11/17/2020 TECHNIQUE: Bilateral craniocaudad, mediolateral oblique, and mediolateral views are submitted with to mosynthesis and SM. Computer aided detection utilized. Breast composition: There are scattered areas of fibroglandular density. Volume loss RIGHT breast. Dy strophic calcification upper-outer quadrant of the RIGHT breast. No change in the overall parenchymal pattern. No recurrent mass or calcifications. MM/[place] [id number] IMPRESSION: BI-RADS: 2-Benign FOLLOW UP: 1 Year Follow-up
== END 2022-02-17 08:22 | disposition home or self-care (01) ==
LOC: RAD 08:25
PROVIDERS: PCP Family Medicine; Visit Provider Nurse Practitioner Family
DX: Z85.3 Personal history of malignant neoplasm of breast (principal)
CPT/HCPCS: 77062; 77063; 77067; G0279

== ENCOUNTER → 2022-08-25 10:16 | Outpatient (BNVA) | payer MEDICARE, MEDICAID, SELFPAY | PROVIDERS: PCP Family Medicine; Visit Provider Internal Medicine Pulmonary Disease | DX: R91.8 Other nonspecific abnormal finding of lung field (principal); J43.1 Panlobular emphysema; F17.210 Nicotine dependence, cigarettes, uncomplicated; Z85.820 Personal history of malignant melanoma of skin; Z85.3 Personal history of malignant neoplasm of breast; Z92.3 Personal history of irradiation; Z90.10 Acquired absence of unspecified breast and nipple | CPT/HCPCS: 99204 ==

== ENCOUNTER 2022-08-29 07:47 | Day surgery (SDC) | payer MEDICARE, MEDICAID, SELFPAY ==
[2022-08-28 09:49] VITALS: BMI 25.7
[2022-08-29] VITALS (11 sets, daily range): BP systolic 102–155; BP diastolic 44–87; PULSE 58–79; RESP 16–20; TEMP 36.1–37; O2SAT 90–100
--- NOTE | 2022-08-29 07:50 | CT_ITS ---
WS: [id number] CT CHEST TECHNIQUE: Noncontrast CT of the chest with coronal and sagittal reformatted images. CLINICAL INFORMATION: for bronchoscopy biopsies COMPARISON: Outside CT chest August 18, 2022 DLP: [address] scans at [facility] use at least one of these dose optimization techniques: automated e xposure control; mA and/or kV adjustment per patient size (includes targeted exams where dose is matc hed to clinical indication); or iterative reconstruction. FINDINGS: Again seen is the masslike consolidation in the RIGHT upper lobe anterolaterally contiguous with the RIGHT hilum. This measures approximately 3.9 x 3.9 cm stable compared to previous. Associated surroun ding interlobular septal thickening. Masslike opacity abuts the pleura with pleural thickening. Bronchovascular thickening along the RIGHT hilum is unchanged. Enlarged RIGHT hilar lymph nodes. Norm al caliber thoracic aorta. No axillary lymphadenopathy. Surgical clips RIGHT axilla. Adrenal glands are normal. Tiny esophageal hiatal hernia. Splenic artery calcification. CT/CT chest ION (PULM ONLY) [id number] IMPRESSION: Exam obtained for bronchoscopy guidance
[2022-08-29] MEDS: sodium chloride 0.9% 1,000 ML 30 ML IV (08:23)
[2022-08-29 08:32] LABS: Basophils # 0.1 10^3/uL (0.0-0.1); Basophils % 0.7 %; Eosinophils # 0.2 10^3/uL (0.0-0.8); Eosinophils % 2.2 %; Hematocrit 36.6 % (37.0-47.0); Hemoglobin 11.5 g/dL (11.5-15.3); Lymphocytes # 2.3 10^3/uL (0.8-4.8); Lymphocytes % 23.6 %; Mean Corpuscular HGB Conc 31.4 g/dL (30.0-36.0); Mean Corpuscular Hemoglobin 26.1 pg (28.0-34.0); Mean Corpuscular Volume 83.2 fl (81-99); Mean Platelet Volume 8.4 fL (7.4-10.4); Neutrophils # 6.27 10^3/uL (1.8-7.7); Neutrophils % 63.1 %; Nucleated Red Blood Cells % 0 %; Platelet Count 301 10^3/cmm (130-400); Red Cell Distribution Width 13.7 % (12.1-15.1); White Blood Count 9.9 10^3/uL (4.0-10.0)
--- NOTE | 2022-08-29 08:51 | ANES.PREANE2 ---
Pre-Anesthetic Assessment Height/Weight: Height 1.63 m Weight 68.039 kg Temp Pulse Resp BP Pulse Ox O2 Del Method 98.6 F 75 16 112/56 96 Room Air 08/29/22 08:18 08/29/22 08:18 08/29/22 08:18 08/29/22 08:18 08/29/22 08:18 08/29/22 08:18 Operation Date: 08/29/22 09:50 Proposed Procedures p ION, EBUS, 42231, 80324, 75252, 94351, 86780, 49900, 10044, 62750, 40332, 94878, 62923, 15799, 37041, 33517,R91.8(Not Applicable) - Per Bazzi MD s Ebus(Not Applicable) - Per Bazzi MD Familial anesthetic complications: None Was Beta Oma taken within 24 hours: N/A Was Clonidine taken within 24 hours: N/A Last intake: Intake Last Liquid Date 08/28/22 Last Liquid Time 22:00 Last Solid Date 08/28/22 Last Solid Time 20:30 Social Tobacco and No alcohol Exam alert, oriented x 3, clear to auscultation bilaterally and regular rate & rhythm Airway Mallampati: Class III Dentition: false Pulmonary Chronic Obstructive Pulmonary Disease GI Gastroesophageal Reflux Disease Metabolic Hyperlipidemia hx meth and cannabis use Neuropsych Seizure Anesthetic Plan ASA status: 3 Anesthesia: General Risk of > 500 ml blood loss (7ml/kg in children): No Medications/Allergies Home Medications Medication Instructions Recorded Confirmed Last Taken Type atorvastatin 20 mg tablet 20 mg PO DAILY #30 tabs 10/10/19 08/29/22 08/28/22 Rx propranolol 20 mg tablet 20 mg PO BID #60 tabs 10/10/19 08/29/22 08/28/22 Rx rllokdqf-ulo-yxull acid 500 500 tab PO DAILY 11/14/19 08/29/22 08/28/22 History mcg-lycopene 300 mcg-lutein 250 mcg tablet (S[employer] Senior) potassium 99 mg tablet 99 mg PO DAILY 11/14/19 08/29/22 08/28/22 History citalopram 40 mg tablet (Celexa) 40 mg PO DAILY #30 tabs 03/03/20 08/29/22 08/28/22 Rx cetirizine 10 mg tablet 10 mg PO DAILY 30 days #30 tabs 03/11/20 08/29/22 08/28/22 Rx meclizine 25 mg tablet 12.5 mg PO BID PRN motion sickness 04/22/20 08/29/22 08/28/22 Rx #30 tabs Nexium 40 mg capsule,delayed 40 mg PO BID #60 caps 10/28/21 08/29/22 08/28/22 Rx release (esomeprazole magnesium) tiotropium bromide 18 mcg capsule 1 cap inhalation DAILY #30 08/25/22 08/29/22 Unknown Rx with inhalation device (Spiriva inhalations with HandiHaler) aspirin 81 mg tablet 81 mg PO DAILY 08/28/22 08/28/22 08/27/22 History topiramate 25 mg tablet 25 mg PO DAILY PRN Shortness Of 08/28/22 08/29/22 Unknown History Breath albuterol sulfate 90 mcg/actuation 2 puff inhalation DIRECTED 08/29/22 08/29/22 08/29/22 History aerosol inhaler Allergies Allergy/AdvReac Type Severity Reaction Status Date / Time codeine Allergy Unknown Verified 08/28/22 09:39 morphine Allergy Unknown Verified 08/28/22 09:39 hydrocodone AdvReac Mild make me Verified 08/25/22 11:27 sick Current Medications Generic Name Dose Route Start Last Admin Trade Name Freq PRN Reason Stop Dose Admin Sodium Chloride 1,000 mls @ 30 mls/hr 08/29/22 08:00 08/29/22 08:23 Sodium Chloride 0.9% IV 08/30/22 07:59 30 mls/hr .Q24H JASE Administration PFSH Anesthesia Medical History (Updated 08/25/22 @ 12:27 by Per Bazzi MD) Anxiety and depression Cancer of breast Dizziness Dyslipidemia GERD (gastroesophageal reflux disease) History of breast cancer Seasonal allergies Seizure Shoulder pain Surgical History H/O carpal tunnel repair H/O tubal ligation History of cholecystectomy History of lumpectomy of right breast History of melanoma excision History of surgery on wrist Hx of removal of ovary Status post surgical removal of malignant neoplasm of skin Family History Other CAD (coronary artery disease) Stroke Social History Smoking and tobacco status: current every day smoker cigarettes Packs smoked per day: 0.75 Years cigarettes smoked: 45 [ Other cigarette details: ALSO VAPES WITH NICOTINE] Quit status (tobacco): has tried quititng Number of times tried to quit tobacco: 3 Second hand smoke exposure: No Alcohol intake: never Substance/Drug Use: former Date of last use: years Current gender identity: Female Data Anesthesia 08/29/22 08:22 08/29/22 08:22 Short CBC 08/29/22 Range/Units 08:22 WBC 9.9 (4.0-10.0) 10^3/uL Hgb 11.5 (11.5-15.3) g/dL Hct 36.6 L (37.0-47.0) % MCV 83.2 (81-99) fl Plt Count 301 (130-400) 10^3/cmm Neut % (Auto) 63.1 % Neut # (Auto) 6.27 (1.8-7.7) 10^3/uL Cardiac Studies: Echocardiogram Ultrasound 10/15/19
[2022-08-29 09:02] LABS: Anion Gap 15.4 (5-19); Blood Urea Nitrogen 13 mg/dL (8-23); Calcium 9.3 mg/dL (8.5-10.5); Carbon Dioxide 25 mmol/L (22-29); Chloride 102 mmol/L (98-107); Glomerular Filtration Rate 84.8 mL/min (90-130); Glucose 103 mg/dL (65-115); Osmolality Calculated 286 mOsm/kg (285-295); Potassium 4.4 mmol/L (3.5-5.1); Sodium 138 mmol/L (136-145)
--- NOTE | 2022-08-29 10:02 | W.PM.OPSUD ---
Surgery/Procedure H&P Update DATE OF PROCEDURE: August 29, 2022 DATE H&P PERFORMED: 08/25/22 H&P UPDATE INFORMATION: I have reviewed H&P completed within last 30 days, I have examined patient prior to procedure and No changes to prior documentation PREOP DIAGNOSIS: right upper lobe lesion suspicious for malignancy PLANNED PROCEDURE: Operation Date: 08/29/22 09:50 Proposed Procedures p ION, EBUS, 52005, 52360, 76241, 22605, 55583, 68046, 81018, 58604, 81463, 66028, 16825, 01521, 00874, 65903,R91.8(Not Applicable) - Per Bazzi MD s Ebus(Not Applicable) - Per Bazzi MD
[2022-08-29] MEDS: ipratropium-albuterol 3 mL Neb INHALATION (10:05)
--- NOTE | 2022-08-29 10:50 | SC_ITS ---
WS: [id number] EXAMINATION: C-arm FL for Bronchoscopy REASON FOR EXAM: ION COMPARISON: None available. ORDER DATE: 08/29/2022 10:50 AM FINDINGS: There is a bronchoscopy catheter needle superimposing the right perihilum SC/C-arm FL for Bronchoscopy IMPRESSION: Increased right perihilar opacity possibly due to hemorrhage or fluid
[2022-08-29] MEDS: lidocaine 1% INJ 10 mL (per mL) XX (10:59)
[2022-08-29 11:57] LABS: Apprearance, Bronch Wash Bloody (CLEAR); Bronch Source Right Upper Lobe; Color, Bronc Wash Red; Cyto Order Verification Order Verified
[2022-08-29] MEDS: EPINEPHrine 1 mg/mL INJ XX (12:14)
--- NOTE | 2022-08-29 12:21 | P.OP_ITS ---
Operative Report Date of procedure: August 29, 2022 Pre-op diagnosis: Preop Diagnosis right upper lobe lesion suspicious for malignancy Post-op diagnosis: Same Procedure done: 32654 Dx Bronchoscope w/Washings or airway inspection 42416 Dx Bronchoscope w/BAL 03855 Bronch with computer image guided Navigational Bronchoscopy 22650 Bronchoscopy w/Transbronchial lung biopsy(s), single lobe 52201 Bronchoscopy w/Transbronchial needle aspiration biopsy(s), tracheal, main stem, and/or lobar bronchus 61897 Bronchoscopy w/ therapeutic aspiration of the tracheobronchial tree (clearance of airway secretions, removal of mucus plugs) 99476 EBUS Sampling 2 nodes 01175 EBUS Diag or Interven Peripheral lesion (radial EBUS) Surgeon: Per Bazzi MD, [facility] Brief History: Mr.Alice Yoo is a 61-year-old female with past medical history of chronic smoking, COPD, history of breast cancer s/p mastectomy 2004 followed by radiation and chemotherapy; n history of malignant melanoma in right leg s/p excised 1992, referred for eval and treat mass of RUL? per Ms. Kulkarni [employer] She was seen at [facility] on 08/18/2022 for right-sided chest pain- patient had a chest x-ray 08/18/2022-which showed abnormal opacity in right midlung.? Somewhat rounded masslike configuration.? Subsequently she had a CT chest on 08/18/2022 which showed severe centrilobular emphysema.? Right upper lobe 3.8 x 3.8 cm spiculated mass consistent with primary pulmonary neoplasm.? Adjacent satellite nodule measuring 0.6 cm consistent with pulmonary metastasis.? There are enlarged subcarinal, right hilar and AP window lymph nodes concerning for kimberley metastasis. She is current smoker 1 ppd x 45 years. c/o shortness of breath; has right side chest pain, constantly.? Patient reports right upper middle chest pain, She had h/o breast cancer in 2004 s/p mastectomy and 13 lymph nodes removed and had radiation; followed by chemo x 5 years. She also has malignant melanoma in her right leg s/p removed 1992 ; She has left forehead basal cell ca s/p removal surgeries three times 2019. With history of extensive smoking history, previous history of breast cancer, malignant melanoma-she is scheduled for robotic navigational bronchoscopy guided biopsies of right upper lobe lesion as well as endobronchial ultrasound-guided biopsies of hilar/mediastinal lymph nodes Procedure: 43594 Dx Bronchoscope w/Washings or airway inspection 75352 Dx Bronchoscope w/BAL 50136 Bronch with computer image guided Navigational Bronchoscopy 13274 Bronchoscopy w/Transbronchial lung biopsy(s), single lobe 59545 Bronchoscopy w/Transbronchial needle aspiration biopsy(s), tracheal, main stem, and/or lobar bronchus 22973 Bronchoscopy w/ therapeutic aspiration of the tracheobronchial tree (clearance of airway secretions, removal of mucus plugs) 57299 EBUS Sampling 2 nodes 97556 EBUS Diag or Interven Peripheral lesion (radial EBUS) Indication: Description of the procedure: The procedure was explained to the patient and the consent was obtained.? The patient was brought to the OR. Anesthesia: The patient underwent endotracheal intubation for general anesthesia. Local anesthesia: The distal trachea-Suzan, right and left mainstem bronchi were anesthetized with 1% lidocaine, 3 mL. Following induction of general anesthesia, the flexible bronchoscope was advanced through the? ET tube.? The? lower trachea mucosa appeared normal, no endotracheal lesion was seen.? The suzan was sharp.? The suzan, the right and left mainstem bronchi are anesthetized with 1% lidocaine.? In a systematic manner bilateral bronchial tree was then examined. ? The bronchoscope was then introduced into the right mainstem bronchus.? The right upper lobe, right middle lobe and right lower lobe bronchi were examined up to the third subsegmental level and no abnormalities were identified.Mucosa appeared normal with no endobronchial lesion, active bleeding or mucous plug.There were significant clear as well as some mucus secretions which were suctioned right away.(64780). The bronchoscope was advanced into the left mainstem bronchus.? The mucosa appeared normal with no endobronchial lesions.? The left upper lobe, lingula and left lower lobe bronchi were examined up to the third subsegmental level and no abnormalities were identified.? Mucosa has dark pigmentation in lower lobes, most likely secondary to chronic smoking, with no endobronchial lesion, active bleeding or mucous plug.??There were some mucus secretions in left lower lobe- which were suctioned right away.(39742) After initial inspection as well as airway clearance with flexible bronchoscope(58518),?ION robotic assisted navigational bronchoscope (97453)?was introduced-and right upper lobe lesion was accessed.? After?confirming the location with radial EBUS (47406), under the fluoroscopy guidance? -we were able to obtain biopsies using fine-needle, forceps.There was some evidence of grade 2 bleeding-cold saline was instilled.? Bronchoalveolar lavage was also taken from right upper lobe lesion. After making sure there is no active bleeding navigational bronchoscope was retracted and introduced?Endobronchial ultrasound EBUS (07953). ? With the help of EBUS, identified a lymph node at station 4L, station 7 and station 11 R.??Fine-needle aspiration biopsies? were taken from station 7 and station 11 R.? (48503) After taking the biopsies EBUS retracted-diagnostic bronchoscope was introduced to check for any evidence of active bleeding. There was some evidence of bleeding-controlled with instillation of cold saline and diluted epinephrine. After making sure there is no active bleeding bronchoscope was retracted and procedure terminated. ? Samples: A.? Right upper lobe lesion 1.? Total of 4 passes were made using?needle aspiration(40156); first pass used for touch prep -pathology onsite reported seeing cells highly suspicious for malignancy; rest of the material was? placed in formalin for histopathology 2.? Targeting the same area 4 passes were made using?forceps (76545);?first pass used for touch prep-pathology onsite reported seeing cells suspicious for malignancy-rest of the material were placed in formalin for histopathology 3.?Bronchoscope was wedged in the anterior segment of right upper lobe, 10 mL of saline was instilled and returned 6 mL of bronchoalveolar lavage (04954).? The fluid was mixed with blood and specks of tissue. Samples for cell count, cytology, microbiology, cultures B.?EBUS guided? Fine-needle aspiration biopsies? were taken from station 7 and station 11 R. (14576) 1.? Total of 5 passes were made using needle aspiration(73659) from station 7; first pass used for touch prep -pathology reported seeing atypical clusters identified a lymphoid background; rest of the material were placed in formalin for histopathology. 3.? Total of 3 passes were made using needle aspiration(38988) from station 11 R: First pass used for touch prep-pathology reported negative for malignancy;? rest of the material was placed in formalin for histopathology ? Complications: None.The patient was extubated and brought to the PACU in stable condition. Postprocedure chest x-ray: There is no evidence of pneumothorax Disposition: Patient can be discharged home in stable condition. ? Pt? is aware that I am going to call him? to update final biopsy results once available.
--- NOTE | 2022-08-29 12:36 | XR_ITS ---
WS: [id number] EXAMINATION: XR chest 1V portable [id number] REASON FOR EXAM: post ION COMPARISON: C-arm images during bronchoscopy same day. ORDER DATE: 08/29/2022 12:55 PM TECHNIQUE: A single, portable frontal chest x-ray was obtained. X-RAY FINDINGS: There is a diffuse interstitial alveolar opacity in the lower aspect of the right upper lobe borderin g the minor fissure. Surgical clips noted in the right axillary region. Pleural spaces are clear. No pleural effusions or pneumothorax. Cardiomediastinal silhouette is normal. No evidence for pulmonary edema. Soft tissue and osseous structures are unremarkable. No tubes or lines are present. XR/XR chest 1V portable [id number] IMPRESSION: The segmental appearing pulmonary opacity in the right upper lobe is an area of recent bronchoscopy possibly representing alveolar hemorrhage or other fluid c omponent. Follow-up imaging as indicated.
[2022-08-29 13:44] LABS: Total Cells Counted Bronch 200
[2022-08-29 13:47] LABS: PATH Referral Yes
== END 2022-08-29 13:45 | disposition home or self-care (01) ==
PROVIDERS: Anesthesiology; PCP Family Medicine; Visit Provider Internal Medicine Pulmonary Disease
PROC: 0BJ08ZZ Inspection of Tracheobronchial Tree, Via Natural or Artificial Opening Endoscopic (ICD-10-PCS; CPT 31622; principal; 2022-08-29 09:30)
PROC: BB4BZZZ Ultrasonography of Pleura (ICD-10-PCS; 2022-08-29 09:30)
DX: C34.11 Malignant neoplasm of upper lobe, right bronchus or lung (principal); F17.210 Nicotine dependence, cigarettes, uncomplicated; R06.02 Shortness of breath; R07.9 Chest pain, unspecified; Z85.3 Personal history of malignant neoplasm of breast; Z85.820 Personal history of malignant melanoma of skin; J44.9 Chronic obstructive pulmonary disease, unspecified; K21.9 Gastro-esophageal reflux disease without esophagitis; E78.5 Hyperlipidemia, unspecified
CPT/HCPCS: 31624; 31627; 31628; 31629; 31645; 31652; 31654; 36415; 71045; 71250; 76000; 80048; 80503; 85025; 87070; 87205; 88112; 88305; 88309; 88342; 89050; 94640; J0171; J1100; J2371; J2405; J2704; J3490; J7030

== ENCOUNTER 2022-09-14 07:57 | Outpatient (CLI) | payer MEDICARE, MEDICAID, SELFPAY ==
[2022-09-14 08:08] VITALS: BP 144/75
[2022-09-14 08:25] VITALS: PULSE 78; RESP 18; O2SAT 98
[2022-09-14] MEDS: albuterol 2.5 mg/3 mL Neb INHALATION (08:25)
[2022-09-14 08:30] VITALS: PULSE 71
== END 2022-09-14 07:58 | disposition home or self-care (01) ==
PROVIDERS: PCP Family Medicine; Visit Provider Internal Medicine Pulmonary Disease
DX: R91.8 Other nonspecific abnormal finding of lung field (principal); F17.210 Nicotine dependence, cigarettes, uncomplicated; R94.2 Abnormal results of pulmonary function studies
CPT/HCPCS: 94060; 94618; 94726; 94729; J7613

== ENCOUNTER 2022-09-16 05:30 | Outpatient (CLI) | payer MEDICARE, MEDICAID, SELFPAY ==
--- NOTE | 2022-09-16 07:30 | PETR_ITS ---
PROCEDURE INFORMATION: Exam: PET/CT Skull Base to Mid-thigh Exam date and time: 09/16/2022 8:25 AM Age: 62 years old Clinical indication: Abnormal findings; Lung mass LABS AND CLINICAL REPORTS: Glucose: 109 mg/dl Treatment strategy for malignancy (PET staging): Initial Staging (PI) TECHNIQUE: Imaging protocol: Following at least four-hour fasting and following the injection of radiopharmaceutical, low dose CT images were obtained. Then, PET images were obtained. Attenuation corrected images were constructed using the CT scan. Fused images of PET and CT were reviewed. The standardized uptake values (SUV) reported below are maximum values within a region of interest, expressed in gm/ml. Exam includes orbital meatal line to mid-thigh. Radiopharmaceutical: 12.1 mCi F-18 FDG (Fluorodeoxyglucose), IV. Time of imaging post radiopharmaceutical administration: 1 hour Injection site: Left antecubital COMPARISON: CT chest ION (PULM ONLY) [id number] 08/29/2022 8:10 A.M., CT chest with contrast 08/18/2022 FINDINGS: Brain: Visualized brain has normal physiologic uptake. Pharynx: No abnormal uptake. Larynx: No abnormal uptake. Lungs, pleura and trachea: A solid spiculated anterior right upper lobe mass measuring 4.1 x 4.1 cm on series 3, image 52 is radiotracer avid, SUV max 17.8. Hfrk-en-ovbglnsy bilateral centrilobular emphysematous changes. Heart: Normal physiologic uptake. Mediastinal space: No abnormal uptake. Liver: No abnormal uptake. Gallbladder and bile ducts: No abnormal uptake. Cholecystectomy clips are present. Pancreas: No abnormal uptake. Spleen: No abnormal uptake. Adrenal glands: No abnormal uptake. Kidneys and ureters: Normal physiologic uptake. Stomach and bowel: No abnormal uptake. There are scattered colonic diverticula. Vasculature: No abnormal uptake. Lymph nodes: A cluster of lymph nodes anterior to the right mainstem bronchus demonstrates an SUV max 3.4, with additional uptake in the right hilar region which demonstrates an SUV max 3.5 the hilar region on series 3, image 54. Low-level uptake within lymph nodes along the left lateral aspect of the aortopulmonary window on series 3, image 49 is noted, SUV max 3.3, as well as within an inferior medial left hilar lymph node on series 3, image 53, SUV max 3.2. Mild uptake in the subcarinal space is present on series 3, image 53, SUV max 3.1. Assessment of the size of these lymph nodes is limited without intravenous contrast however they appear similar in size compared with the prior CT of 08/18/2022. Bones/joints: No abnormal uptake in the visualized axial and appendicular skeleton. There is mild diffuse vertebral body spondylosis. Soft tissues: There is physiologic appearing uptake in the region of the soft tissues posterior to the cricoid cartilage with no correlating lesion on the comparison CT images, SUV max 6.3. Right axillary surgical clips are present. Physiologic versus mild inflammatory uptake appears to be present in the distal left infraspinatus muscle, SUV max 3.6. METRICS: Mediastinal blood pool: SUV max 2.5 PET[facility] SUBSEQ [id number] IMPRESSION: 1. A right upper lobe mass is radiotracer avid (SUV max 17.8) consistent with malignancy. 2. Mild uptake is identified in mediastinal and bilateral hilar lymph nodes (SUV max 3.5).This uptake may be reactive, secondary to infectious or inflammatory involvement however neoplastic involvement cannot be excluded. 3. Centrilobular emphysematous changes. 4. Additional nonurgent findings as detailed above.
== END 2022-09-16 05:31 | disposition home or self-care (01) ==
LOC: RAD 09-18 05:31
PROVIDERS: PCP Family Medicine; Visit Provider Internal Medicine Pulmonary Disease
DX: R91.8 Other nonspecific abnormal finding of lung field (principal)
CPT/HCPCS: 78815; 99204; A9552

== ENCOUNTER 2022-09-20 14:03 | Oncology outpatient (recurring) (ONCR) | payer MEDICARE, MEDICAID, SELFPAY | END 2022-10-05 23:59 | disposition home or self-care (01) | PROVIDERS: PCP Family Medicine; Visit Provider Internal Medicine Medical Oncology | DX: C34.11 Malignant neoplasm of upper lobe, right bronchus or lung (principal); F17.210 Nicotine dependence, cigarettes, uncomplicated; Z92.3 Personal history of irradiation; Z85.3 Personal history of malignant neoplasm of breast; Z85.820 Personal history of malignant melanoma of skin | CPT/HCPCS: 99204; 99214 ==

== ENCOUNTER → 2022-09-25 08:03 | Outpatient (BNVA) | payer MEDICARE, MEDICAID, SELFPAY | PROVIDERS: PCP Family Medicine; Visit Provider Internal Medicine Pulmonary Disease | DX: C34.11 Malignant neoplasm of upper lobe, right bronchus or lung (principal); J43.1 Panlobular emphysema; F17.210 Nicotine dependence, cigarettes, uncomplicated | CPT/HCPCS: 99214 ==

== ENCOUNTER → 2022-09-26 12:24 | Outpatient (BNVA) | payer MEDICARE, MEDICAID, SELFPAY | PROVIDERS: PCP Family Medicine; Referring Provider Internal Medicine Pulmonary Disease; Visit Provider Thoracic Surgery (Cardiothoracic Vascular Surgery) | DX: C34.11 Malignant neoplasm of upper lobe, right bronchus or lung (principal); F17.210 Nicotine dependence, cigarettes, uncomplicated | CPT/HCPCS: 99203 ==

== ENCOUNTER 2022-12-08 09:20 | Oncology outpatient (recurring) (ONCR) | payer MEDICAID, SELFPAY | END 2023-01-04 23:59 | disposition home or self-care (01) | PROVIDERS: PCP Family Medicine; Visit Provider Internal Medicine Medical Oncology | DX: C34.11 Malignant neoplasm of upper lobe, right bronchus or lung (principal); F17.210 Nicotine dependence, cigarettes, uncomplicated; Z92.3 Personal history of irradiation; Z85.3 Personal history of malignant neoplasm of breast; Z85.820 Personal history of malignant melanoma of skin | CPT/HCPCS: 36415; 99215 ==

== ENCOUNTER 2022-12-14 14:40 | Outpatient (CLI) | payer MEDICARE, MEDICAID, SELFPAY ==
--- NOTE | 2022-12-14 15:30 | CTR_ITS ---
PROCEDURE INFORMATION: Exam: CT Chest Without Contrast; Diagnostic Exam date and time: 12/14/2022 2:54 PM Age: 62 years old Clinical indication: Condition or disease; Lung condition and disease; Cancer of the lung; Right; Lobe, upper; Additional info: Lung cancer TECHNIQUE: Imaging protocol: Diagnostic computed tomography of the chest without contrast. Radiation optimization: All CT scans at this facility use at least one of these dose optimization techniques: automated exposure control; mA and/or kV adjustment per patient size (includes targeted exams where dose is matched to clinical indication); or iterative reconstruction. REPORTING DATA: Count of CT and Cardiac NM exams in prior 12 months: This patient has received 3 known CTs and 0 known cardiac nuclear medicine studies in the 12 months prior to the current study. COMPARISON: CT chest ION (PULM ONLY) [id number] 08/29/2022 8:10 AM RADIATION DOSE METRICS: Total DLP (mGy-cm): 241.14 FINDINGS: Lungs: Lung windows demonstrate emphysematous change, as noted with prior exam. Volume loss in the upper right lung is seen with absence of previous mass in the anterolateral right upper lobe when correlated with prior exam. This suggests previous resection or treatment. A residual mild loculated pleural effusion is seen anteromedially. No mass or mass density is seen otherwise. Trace posterior pleural effusion is seen within the right lung base. No pneumothorax. Shift of upper mediastinal structures to the right noted with volume loss. Pleural spaces: See Lungs finding. Heart: No significant cardiomegaly. No pericardial effusion. Coronary artery calcification is again seen. Lymph nodes: Limited evaluation of lymph nodes without IV contrast, without findings to indicate interval lymphadenopathy. Vasculature: Small amount of calcification thoracic aorta which is otherwise unremarkable for unenhanced exam. Pulmonary arteries appear unremarkable for unenhanced exam. Gallbladder and bile ducts: Images through the upper-most abdomen demonstrate surgical clips in the gallbladder fossa. Bones/joints: No acute osseous abnormality. Soft tissues: Surgical clips right axillary region. CT/CT chest wo con [id number] IMPRESSION: 1. Absence of previous mass in the anterolateral right upper lobe with prior exam August 18, 2022, with volume loss in the upper right lung and residual mild loculated pleural effusion anteromedially, suggestive of previous resection and/or treatment. No residual mass density. 2. Emphysematous change. COMMENTS: In the absence of a history or active diagnosis of lung cancer, it is recommended that this patient with emphysema be evaluated for enrollment in a low dose CT lung cancer screening program.
== END 2022-12-14 14:41 | disposition home or self-care (01) ==
LOC: RAD 14:40
PROVIDERS: PCP Family Medicine; Visit Provider Internal Medicine Medical Oncology
DX: C34.11 Malignant neoplasm of upper lobe, right bronchus or lung (principal); J43.9 Emphysema, unspecified; J90 Pleural effusion, not elsewhere classified
CPT/HCPCS: 71250

== ENCOUNTER → 2022-12-25 13:52 | Outpatient (BNVA) | payer MEDICARE, MEDICAID, SELFPAY | PROVIDERS: PCP Family Medicine; Visit Provider Internal Medicine Pulmonary Disease | DX: C34.11 Malignant neoplasm of upper lobe, right bronchus or lung (principal); J43.1 Panlobular emphysema; F17.210 Nicotine dependence, cigarettes, uncomplicated | CPT/HCPCS: 99214 ==

== ENCOUNTER 2023-01-12 08:18 | Oncology outpatient (recurring) (ONCR) | payer MEDICARE, MEDICAID, SELFPAY ==
[2023-01-12 08:42] VITALS: BMI 25.6
[2023-01-12 08:46] VITALS: BP 123/68; PULSE 95; RESP 17; TEMP 37.1; O2SAT 95
[2023-01-12 09:04] LABS: Basophils # 0.1 10^3/uL (0.0-0.1); Basophils % 0.7 %; Eosinophils # 0.1 10^3/uL (0.0-0.8); Eosinophils % 2.1 %; Hematocrit 39.4 % (36-47); Lymphocytes # 1.7 10^3/uL (0.8-4.8); Mean Corpuscular Hemoglobin 25.7 pg (27-33); Mean Corpuscular Volume 83.1 fl (85-98); Monocytes # 0.7 10^3/uL (0.2-0.9); Monocytes % 9.7 %; Neutrophils # 4.16 10^3/uL (1.8-7.7); Neutrophils % 62.4 %; Nucleated Red Blood Cells % 0 %; Platelet Count 261 10^3/cmm (157-399); Red Blood Count 4.74 10^6/uL (3.85-5.65); Red Cell Distribution Width 15.1 % (12.1-15.1); White Blood Count 6.68 10^3/uL (3.29-11.43)
[2023-01-12 09:22] LABS: Alanine Aminotransferase 12 U/L (0-33); Albumin Level 4.1 g/dL (3.5-5.2); Alkaline Phosphatase 105 U/L (35-105); Anion Gap 17.1 (5-19); Aspartate Amino Transferase 16 U/L (0-32); Blood Urea Nitrogen 11 mg/dL (8-23); Calcium 9.5 mg/dL (8.5-10.5); Carbon Dioxide 24 mmol/L (22-29); Chloride 102 mmol/L (98-107); Ferritin 49 ng/mL (15-150); Globulin 3.3 g/dL (1.3-4.6); Glomerular Filtration Rate 72.4 mL/min (90-130); Glucose 122 mg/dL (65-115); Iron 55 ug/dL (37-145); Osmolality Calculated 289 mOsm/kg (285-295); Percent Saturation 18.2 % (20-50); Potassium 4.1 mmol/L (3.5-5.1); Sodium 139 mmol/L (136-145); Total Bilirubin 0.2 mg/dL (0.15-1.2); Total Iron Binding Capacity 301 mcg/dl; Total Protein 7.4 g/dL (6.6-8.7); Unsaturated Iron Binding 246 ug/dL (112-347)
[2023-01-16 10:43] LABS: Soluble Transferrin Receptor 1.44 mg/L (0.76-1.76)
== END 2023-02-04 23:59 | disposition home or self-care (01) ==
PROVIDERS: Internal Medicine; PCP Family Medicine; Visit Provider Internal Medicine Medical Oncology
DX: C34.11 Malignant neoplasm of upper lobe, right bronchus or lung (principal); F17.210 Nicotine dependence, cigarettes, uncomplicated; Z92.3 Personal history of irradiation; Z85.3 Personal history of malignant neoplasm of breast; Z85.820 Personal history of malignant melanoma of skin
CPT/HCPCS: 36415; 80053; 82728; 83540; 83550; 84238; 85025; 99215

== ENCOUNTER 2023-04-03 09:31 | Outpatient (CLI) | payer MEDICAID, SELFPAY ==
--- NOTE | 2023-04-03 10:00 | CT_ITS ---
WS: [id number] CT chest w con* [id number] HISTORY: Surveillance, follow-up lung cancer. TECHNIQUE: Axial imaging performed through the thorax. Coronal and sagittal reformats are submitted. All CT scans at [facility] use at least one of these dose optimization techniques: automated exposure control; mA and/or kV adjustment per patient size (includes targeted exams where dose is mat ched to clinical indication); or iterative reconstruction. CONTRAST: Omnipaque 350; 100 mL IV. DLP: 237.47 mGy.cm COMPARISON: 12/14/2022, PET/CT 09/16/2022 Lungs and central airway: Volume loss in the RIGHT thorax with tenting of the diaphragm. Prior RIGHT upper lobectomy. Previously described PET/CT positive mass in the RIGHT upper lobe has been removed w ith the lung resection. Mild hyperexpansion of the LEFT lung across the midline. Benign calcified gra nuloma in the anterior LEFT upper lobe. No pulmonary mass or nodule. No pneumonia. Pleura: No layering pleural effusion. The loculated pleural collection in the anterior mid RIGHT thor ax has nearly resolved since 12/14/2022. Heart and pericardium: Normal size heart with no pericardial effusion. Mediastinum and latoya: Enlarging RIGHT hilar mass. There is a soft tissue mass centered at the RIGHT h ilum partially encasing the distal pulmonary artery. Mass measures 2.9 x 3.5 cm and extends over a le ngth of 3.4 cm. This was not present on the prior study. Prior study was performed without IV contras t but I do believe this is new. There are a few additional mediastinal and hilar lymph nodes which ar e unchanged in size. Vessels: Normal size aortic and pulmonary artery. No coronary artery calcifications. Chest wall and lower neck: No soft tissue masses. Upper abdomen: Prior cholecystectomy. No liver abnormality. No adrenal mass. Osseous structures: No destructive process. IMPRESSION: 1. Status post RIGHT upper lobectomy for neoplasm. 2. No recurrent pulmonary mass. 3. Suspect metastatic disease at the RIGHT hilum. There is a new RIGHT hilar mass measuring 2.9 x 3. 5 x 3.4 cm suspicious for recurrent metastatic lung cancer.
[2023-04-03 10:11] LABS: Blood Urea Nitrogen 11 mg/dL (8-23); Glomerular Filtration Rate 72.4 mL/min (90-130)
[2023-04-03] MEDS: iohexol 350 mg/mL 100 mL Btl IV (10:21)
== END 2023-04-03 09:32 | disposition home or self-care (01) ==
LOC: RAD 09:31
PROVIDERS: PCP Family Medicine; Visit Provider Internal Medicine
DX: C34.11 Malignant neoplasm of upper lobe, right bronchus or lung (principal); Z85.820 Personal history of malignant melanoma of skin; Z85.3 Personal history of malignant neoplasm of breast; R91.8 Other nonspecific abnormal finding of lung field
CPT/HCPCS: 71260; 82565; 84520; Q9967

== ENCOUNTER 2023-04-17 07:52 | Outpatient (CLI) | payer MEDICARE, MEDICAID, SELFPAY ==
--- NOTE | 2023-04-17 08:00 | PETR_ITS ---
PROCEDURE INFORMATION: Exam: PET/CT Skull Base to Mid-thigh Exam date and time: 04/17/2023 8:49 AM Age: 62 years old Clinical indication: Abnormal findings; CT chest 04/03/2023; Additional info: New lymph node in the right hilar area. Previously provided history of right upper lobe lung cancer and breast cancer. LABS AND CLINICAL REPORTS: Glucose: 119 mg/dl Treatment strategy for malignancy (PET staging): Restaging (PS) TECHNIQUE: Imaging protocol: Following at least four-hour fasting and following the injection of radiopharmaceutical, low dose CT images were obtained. Then, PET images were obtained. Attenuation corrected images were constructed using the CT scan. Fused images of PET and CT were reviewed. The standardized uptake values (SUV) reported below are maximum values within a region of interest, expressed in gm/ml. Exam includes orbital meatal line to mid-thigh. Radiopharmaceutical: 13.13 mCi F-18 FDG (Fluorodeoxyglucose), IV. Time of imaging post radiopharmaceutical administration: 1 hour Injection site: Right antecubital COMPARISON: CT chest 04/03/2023, CT chest 12/14/2022, PT [facility] SUBSEQ [id number] 09/16/2022 8:25 AM FINDINGS: Brain: Visualized brain has normal physiologic uptake. Pharynx: There is physiologic versus inflammatory appearing uptake in the region of the adenoidal tissue without evidence of a discrete lesion on the CT images. Physiologic appearing uptake in the region of the cricoid cartilage is noted. Larynx: No abnormal uptake. Lungs, pleura and trachea: Postoperative changes of right upper lobe resection are new since the prior PET-CT. In the anterior right hilar region an ovoid soft tissue density mass measuring approximately 4.8 x 3.2 cm on series 3, image 122 is radiotracer avid, SUV max 9.0. Previous uptake in the right hilar region on the prior PET-CT demonstrated an SUV max 3.4 in small lymph nodes in this region anterior to the right mainstem bronchus. Mild to moderate bilateral centrilobular emphysematous changes are present. Heart: Normal physiologic uptake. Mediastinal space: No abnormal uptake. Liver: No abnormal uptake. Gallbladder and bile ducts: No abnormal uptake. Cholecystectomy clips are present. Pancreas: No abnormal uptake. Spleen: No abnormal uptake. Adrenal glands: No abnormal uptake. Kidneys and ureters: Normal physiologic uptake. Stomach and bowel: There is likely physiologic appearing uptake within the stomach. Focal uptake in a of a small bowel loop in the right pelvis, SUV max 5.2 on series 3, image 230 is noted without evidence of a definite underlying lesion on the CT images. Colonic diverticula are noted. Vasculature: No abnormal uptake. There are diffuse atherosclerotic changes. Lymph nodes: No abnormal uptake. No lymphadenopathy in the head, neck, chest, abdomen, pelvis, and extremities. Bones/joints: No abnormal uptake in the visualized axial and appendicular skeleton. Soft tissues: No abnormal uptake in the visualized head, neck, chest, abdomen, pelvis, and extremities. METRICS: Mediastinal blood pool: SUV max 2.3 PET/PET [facility] SUBSEQ [id number] IMPRESSION: 1. A right perihilar mass is radiotracer avid consistent with malignancy. 2. Elevated uptake in a loop of small bowel in the right pelvis is noted without evidence of an associated lesion on the CT images, likely physiologic or inflammatory in etiology. Attention to this region on follow-up imaging is recommended. 3. Colonic diverticulosis. 4. Additional nonurgent findings as detailed above.
== END 2023-04-17 07:53 | disposition home or self-care (01) ==
LOC: RAD 07:53
PROVIDERS: PCP Family Medicine; Visit Provider Internal Medicine Medical Oncology
DX: C34.11 Malignant neoplasm of upper lobe, right bronchus or lung (principal); R93.3 Abnormal findings on diagnostic imaging of other parts of digestive tract; K57.90 Diverticulosis of intestine, part unspecified, without perforation or abscess without bleeding
CPT/HCPCS: 78815; A9552

== ENCOUNTER → 2023-04-26 14:42 | Outpatient (BNVA) | payer MEDICARE, MEDICAID, SELFPAY | PROVIDERS: PCP Family Medicine; Visit Provider Internal Medicine Pulmonary Disease | DX: C34.11 Malignant neoplasm of upper lobe, right bronchus or lung (principal); F17.200 Nicotine dependence, unspecified, uncomplicated; J43.1 Panlobular emphysema; J44.9 Chronic obstructive pulmonary disease, unspecified; Z71.6 Tobacco abuse counseling | CPT/HCPCS: 99214 ==

== ENCOUNTER → 2023-05-10 06:00 | Day surgery (SDC) | payer MEDICARE, MEDICAID, SELFPAY ==
[2023-05-10] VITALS (16 sets, daily range): BP systolic 90–172; BP diastolic 45–79; PULSE 80–98; RESP 18–20; TEMP 36.4–36.6; O2SAT 92–100; BMI 24.9
[2023-05-10] MEDS: sodium chloride 0.9% 1,000 ML 30 ML IV (06:39)
--- NOTE | 2023-05-10 06:59 | ANES.PREANE2 ---
Pre-Anesthetic Assessment Height/Weight: Height 1.63 m Weight 65.771 kg Temp Pulse Resp BP Pulse Ox O2 Del Method 97.9 F 80 18 113/59 97 Room Air 05/10/23 06:18 05/10/23 06:18 05/10/23 06:18 05/10/23 06:18 05/10/23 06:18 05/10/23 06:18 Preop Diagnosis: lung mass Operation Date: 05/10/23 07:00 Proposed Procedures p Ebus(Not Applicable) - Per Khan DatarMD Familial anesthetic complications: none Was Beta Oma taken within 24 hours: Yes Was Clonidine taken within 24 hours: N/A Last intake: Intake Last Liquid Date 05/09/23 Last Liquid Time 23:59 Last Solid Date 05/09/23 Last Solid Time 20:30 Social Tobacco and No alcohol (history) 0.5 pack(s) per day 49 pack years Exam alert, oriented x 3, clear to auscultation bilaterally and regular rate & rhythm Airway Submandibular: within normal limits Cervical ROM: within normal limits Mallampati: Class II Dentition: false Pulmonary Chronic Obstructive Pulmonary Disease Right lobectomy october 2022 CV/HEM Anemia, Coronary Artery Disease and Hypertension carotid surgery 15 years ago None reported Hepatic None reported GI Gastroesophageal Reflux Disease (controlled) Metabolic Hyperlipidemia [facility] None reported Neuropsych Anxiety, Depression and Seizure Anesthetic Plan ASA status: 3 Anesthesia: General Risk of > 500 ml blood loss (7ml/kg in children): No Medications/Allergies Home Medications Medication Instructions Recorded Confirmed Last Taken Type atorvastatin 20 mg tablet 20 mg PO DAILY #30 tabs 10/10/19 05/10/23 05/09/23 Rx propranolol 20 mg tablet 20 mg PO BID #60 tabs 10/10/19 05/10/23 05/09/23 Rx citalopram 40 mg tablet (Celexa) 40 mg PO DAILY #30 tabs 03/03/20 05/10/23 05/09/23 Rx Nexium 40 mg capsule,delayed 40 mg PO BID #60 caps 10/28/21 05/10/23 05/09/23 Rx release (esomeprazole magnesium) aspirin 81 mg tablet 81 mg PO DAILY 08/28/22 05/10/23 05/08/23 History topiramate 25 mg tablet 25 mg PO DAILY PRN Shortness Of 08/28/22 05/10/23 05/09/23 History Breath albuterol sulfate 90 mcg/actuation 2 puff inhalation DIRECTED 08/29/22 05/10/23 05/09/23 History aerosol inhaler ferrous sulfate 325 mg (65 mg 325 mg PO DAILY 09/05/22 05/10/23 05/09/23 History iron) tablet (Rohan-Time) umeclidinium 62.5 mcg/actuation 1 inh inhalation DAILY #30 ea 04/02/23 05/10/23 05/10/23 Rx blister powder for inhalation (Incruse Ellipta) azelastine 137 mcg (0.1 %) nasal 2 spray intranasal BID 05/08/23 05/10/23 05/10/23 History spray aerosol fluticasone propionate 50 2 spray intranasal DAILY 05/08/23 05/10/23 05/10/23 History mcg/actuation nasal spray,suspension meclizine 25 mg tablet 25 mg PO BID PRN motion sickness 05/08/23 05/10/23 05/09/23 History naproxen sodium 220 mg tablet 440 mg PO BEDTIME 05/08/23 05/08/23 05/07/23 History (Aleve) Allergies Allergy/AdvReac Type Severity Reaction Status Date / Time codeine Allergy Unknown Verified 04/26/23 15:33 morphine Allergy Unknown Verified 04/26/23 15:33 hydrocodone AdvReac Mild make me Verified 04/26/23 15:33 sick Current Medications Generic Name Dose Route Start Last Admin Trade Name Freq PRN Reason Stop Dose Admin Sodium Chloride 1,000 mls @ 30 mls/hr 05/10/23 06:15 05/10/23 06:39 Sodium Chloride 0.9% IV 05/11/23 06:14 30 mls/hr .Q24H JASE Administration PFSH Anesthesia Medical History Non-small cell lung cancer History of malignant melanoma of skin Seasonal allergies Seizure GERD (gastroesophageal reflux disease) History of breast cancer Anxiety and depression Shoulder pain Dizziness Dyslipidemia Surgical History History of melanoma excision Hx of removal of ovary Status post surgical removal of malignant neoplasm of skin History of cholecystectomy H/O carpal tunnel repair History of surgery on wrist History of lumpectomy of right breast H/O tubal ligation Family History Other CAD (coronary artery disease) Stroke Social History Smoking and tobacco/nicotine status: current every day tobacco/nicotine user cigarettes Packs smoked per day: 0.75 Years cigarettes smoked: 45 [ Other cigarette details: 4-5 cigarettes daily] Quit status (tobacco/nicotine): has tried quititng Number of times tried to quit tobacco: 3 Second hand smoke exposure: No Alcohol intake: never Substance/Drug Use: former Date of last use: years Current gender identity: Female Data Anesthesia Cardiac Studies: Echocardiogram Ultrasound 10/15/19
--- NOTE | 2023-05-10 07:08 | W.PM.OPSUD ---
Surgery/Procedure H&P Update DATE OF PROCEDURE: May 10, 2023 DATE H&P PERFORMED: 04/26/23 H&P UPDATE INFORMATION: I have reviewed H&P completed within last 30 days, I have examined patient prior to procedure and No changes to prior documentation CHANGES TO PREVIOUS DOCUMENTATION: None PREOP DIAGNOSIS: New hilar mass PRIMARY INDICATION FOR PROCEDURE: To obtain tissue biopsies to rule out recurrent lung cancer PLANNED PROCEDURE: Operation Date: 05/10/23 07:00 Proposed Procedures p Ebus(Not Applicable) - Per Khan DatarMD
[2023-05-10] MEDS: lidocaine 1% INJ 10 mL (per mL) XX (07:30)
--- NOTE | 2023-05-10 08:08 | XR_ITS ---
WS: [id number] Examination: XR chest 1V portable [id number] Reason for Exam: Post EBUS Date: May 10, 2023 Comparison: August 29, 2022 Findings: The heart is not enlarged. There is no pneumothorax. There is volume loss and scarring involving the right chest. There is no pulmonary edema or pleural effusion. Chronic infiltrates are suspected in the bases. Impression: No pneumothorax is appreciated There is volume loss and scarring in the right lung.
[2023-05-10 08:12] LABS: Cyto Order Verification Order Verified
[2023-05-10 08:43] LABS: Apprearance, Bronch Wash Cloudy (CLEAR); Color, Bronc Wash White; PATH Referral Yes; Total Cells Counted Bronch 200
[2023-05-10] MEDS: ipratropium-albuterol 3 mL Neb INHALATION (08:52)
--- NOTE | 2023-05-10 08:53 | P.OP_ITS ---
Operative Report Date of procedure: May 10, 2023 Pre-op diagnosis: Suspected recurrence of lung malignancy Post-op diagnosis: Same Procedure done: Dx Bronchoscope w/BAL Dx Bronchoscopy w/Bronchial or Endobronchial biopsy(s), single or multiple sites Bronchoscopy w/ therapeutic aspiration of the tracheobronchial tree (clearance of airway secretions, removal of mucus plugs) EBUS Sampling 1-2 nodes Surgeon: Per Bazzi MD Brief History: 62-year-old woman with R leg melanoma s/p resection in 1993, R breast IDC s/p lumpectomy and AL[facility] in 2004 in [facility], [facility], & 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 I have seen patient initially on 08/25/2022 for a contrast-enhanced chest CT done in ER on 08/18/2022 for chest pain showed a spiculated mass in the right upper lobe measuring 3.8 x 3.8 consistent with pulmonary primary neoplasm. On 08/29/2022: She underwent bronchoscopy/EBUS. FNA biopsies were obtained from the right upper lobe mass and from station 4L, station 7, and station 11R lymph nodes. Biopsies from the right upper lobe mass showed invasive moderately differentiated nonkeratinizing squamous cell carcinoma. Biopsies of station 7 and station 11R lymph nodes were negative for malignancy. On 09/16/2022: PET/CT showed FDG avid right upper lobe mass, SUV 17.8, consistent with malignancy. Mild uptake was identified in mediastinal and bilateral hilar lymph nodes with SUV max 3.5, indeterminate. There are no other areas of abnormal uptake on that study. Her pulmonary function studies on 09/21/2022 showed an FEV1 of 1.78, 73% of predicted. 0n 11/01/22: She underwent right robotic thoracoscopic right upper and right m iddle lobe lobectomy with mediastinal and hilar lymph node dissection by Dr. Stoddard in [facility]. Pathology showed grade 3 invasive squamous cell carcinoma nonkeratinizing, 4.8 cm with negative margins. Lymphovascular invasion and visceral pleura invasion present. Final staging stage IIA [id number] Caris: from Upper Lobe 10/2022: PDL TPS 10%, PD-L1 30%, CDKN2A 11% and PTEN mutation 13%, SMAD4 11%, TP53 Caris: 08/2022: PD-L1 5%, CDKN2A, PTEN, SMAD4 Given stage II-she was followed by oncology who recommended adjuvant chemo but patient is not interested in chemotherapy. She had survelliance scans and latest PET CT showed 04/17/23: Postoperative changes of right upper lobe resection are new since the prior PET-CT. In the anterior right hilar region an ovoid soft tissue density mass measuring approximately 4.8 x 3.2 cm on series 3, image 122 is radiotracer avid, SUV max 9.0. Previous uptake in the right hilar region on the prior PET-CT demonstrated an SUV max 3.4 in small lymph nodes in this region anterior to the right mainstem bronchus. Today she is scheduled for endobronchial ultrasound-guided biopsy of right hilar mass to rule out recurrent versus new malignancy. Procedure: Dx Bronchoscope w/BAL Dx Bronchoscopy w/Bronchial or Endobronchial biopsy(s), single or multiple sites Bronchoscopy w/ therapeutic aspiration of the tracheobronchial tree (clearance of airway secretions, removal of mucus plugs) EBUS Sampling 1-2 nodes Indication: Surveillance PET CT showed 04/17/23: Postoperative changes of right upper lobe resection are new since the prior PET-CT. In the anterior right hilar region an ovoid soft tissue density mass measuring approximately 4.8 x 3.2 cm on series 3, image 122 is radiotracer avid, SUV max 9.0. Previous uptake in the right hilar region on the prior PET-CT demonstrated an SUV max 3.4 in small lymph nodes in this region anterior to the right mainstem bronchus.. Anesthesia: General anesthesia. Local anesthesia: The rani in the right and left mainstem bronchi were anesthetized with 1% lidocaine, 3 mL. Description of the procedure: The procedure was explained to the patient and the consent was obtained. The patient was brought to the OR. The patient underwent induction for general anesthesia and endotracheal tube was placed. The bronchoscope was advanced through the ET tube. The distal trachea was visualized. There were scant amount of secretions which were suctioned right away. Tracheal mucosa appeared normal, no endotracheal lesion was seen. The rani was sharp. 1 mL each of 1% lidocaine was instilled in the trachea the right and left mainstem bronchi for local anesthesia. In a systematic manner bilateral bronchial tree was then examined. The bronchoscope was then introduced into the right mainstem bronchus. The right upper lobe and middle lobe openings were closed as part of her right upper lobe and lobectomy.; The bronchoscope was passed into the right lower lobe and all the segments were examined and no endobronchial lesions noted. There were mucoid secretions which were suctioned right away. The bronchoscope was advanced into the left mainstem bronchus. The left upper lobe, and lingula were examined up to the third subsegmental level and no abnormalities were identified. Mucosa of left upper lobe and lingula appeared normal with no endobronchial lesion. There were clear secretions which were suctioned right away. Bronchoalveolar lavage was taken from medial segment of right lower lobe. Bronchoscope was retracted and Endobronchial Ultrasound (EBUS) was introduced. Identified a large hypoechoic mass in station 11 R. Using [id number] were taken from station 11 R; there was some evidence of bleeding which is controlled with instillation of cold saline. After making sure there is no active bleeding, bronchoscope retracted and procedure terminated. Samples: 1. Bronchoalveolar lavage was performed after wedging the bronchoscope at the entrance of medial segment right lower lobe. 50 mL of saline was instilled, fluid return was 25 mL. Bronchoalveolar lavage specimen was sent for cell count and differential, gram stain and culture, cytology B. EBUS guided Fine-needle aspiration biopsies were taken from station station 11 R. 1. Total of 7 passes were made using needle aspiration from station 11 R; all the material was placed in formalin and sent for histopathology Complications: None.The patient was extubated and brought to the PACU in stable condition. Disposition: Patient can be discharged home in stable condition. Pt and her sister are aware that I am going to call them to update final biopsy results once available. Related Problem List Diagnoses (1) Hilar mass: (2) Primary squamous cell carcinoma of upper lobe of right lung:
--- NOTE | 2023-05-10 09:00 | ANE.PACU2 ---
Inpatient post-anesthesia follow up: Airway intact: Yes Vital signs: Temperature 97.6 F Pulse Rate 82 Respiratory Rate 18 Blood Pressure 112/52 Pulse Oximetry 95 Oxygen Delivery Me thod Room Air Oxygen Flow Rate 3 Fraction of Inspir ed Oxygen Hydration adequate: Yes Nausea and vomiting: No Pain level: 1 Mental status: Baseline
[2023-05-17 07:31] LABS: PD-L1 (Clone 22C3) by IHC BBPL See Report
== END | disposition home or self-care (01) ==
PROVIDERS: PCP Family Medicine; Visit Provider Internal Medicine Pulmonary Disease
PROC: BB4BZZZ Ultrasonography of Pleura (ICD-10-PCS; principal; 2023-05-10 07:00)
PROC: 0BJ08ZZ Inspection of Tracheobronchial Tree, Via Natural or Artificial Opening Endoscopic (ICD-10-PCS; CPT 31622; 2023-05-10 07:00)
DX: C34.11 Malignant neoplasm of upper lobe, right bronchus or lung (principal); C77.9 Secondary and unspecified malignant neoplasm of lymph node, unspecified; J44.9 Chronic obstructive pulmonary disease, unspecified; Z85.3 Personal history of malignant neoplasm of breast; Z90.10 Acquired absence of unspecified breast and nipple; Z92.3 Personal history of irradiation; Z92.21 Personal history of antineoplastic chemotherapy; Z79.82 Long term (current) use of aspirin; E78.5 Hyperlipidemia, unspecified; F17.210 Nicotine dependence, cigarettes, uncomplicated
CPT/HCPCS: 31624; 31625; 31645; 31652; 71045; 80503; 87070; 87205; 88112; 88305; 88341; 88342; 89050; 94640; J1100; J2405; J2704; J2710; J3010; J3490; J7030

== ENCOUNTER → 2023-05-28 08:11 | Day surgery (SDC) | payer MEDICARE, MEDICAID, SELFPAY ==
[2023-05-28 08:27] VITALS: BP 152/79; PULSE 88; RESP 18; TEMP 36.6; O2SAT 98
--- NOTE | 2023-05-28 08:34 | XR_ITS ---
WS: [id number] PORTABLE CHEST x 2 HISTORY: Post PICC insertion COMPARISON: 05/10/2023 Tip of the PICC line projects over the RIGHT heart. For more optimal positioning suggest retracting 2 .3 cm. Second image was performed after recommended retraction of the PICC line. Satisfactory positio jigar now. Mild hazy attenuation throughout both lungs. Slight volume loss in the RIGHT upper lobe. There is sli ght deviation of the trachea to the RIGHT. No pleural effusion or pneumothorax. Cardiac size: Normal. Mediastinum/Aorta: Normal mediastinum. No osseous abnormality seen. Prior RIGHT lymph node resection. IMPRESSION: 1. Satisfactory positioning LEFT PICC line. 2. Volume loss in the medial RIGHT upper lobe is probably related to radiation treatment and therapy .
--- NOTE | 2023-05-28 09:41 | PICC.NOTE ---
Left double lumen PICC placed to left basilic vein. Referred to vascular access nurse for PICC placement due to need for chemotherapy. Risks and benefits discussed and informed consent obtained from patient. Left arm assessed with left basilic vein measuring 3.5 mm, straight, and apparent best choice for placement. Using sterile technique and MST, left basilic vein accessed x 1 stick. Mid-arm circumference measured 10 cm from left AC 27 cm. Trimmed cath 41 cm with 2 cm external length noted. CXR shows tip in distal SVC, in good position for use per radiologist. Line secured with stat-lock. Insertion site covered with Biopatch and TSM. Pt to return to [facility] tomorrow at 1045 for PICC dressing change and chemo schedule. Appointment card given.
== END ==
LOC: GILAB 08:13
PROVIDERS: PCP Family Medicine; Visit Provider Internal Medicine
DX: Z45.2 Encounter for adjustment and management of vascular access device (principal)
CPT/HCPCS: 36573; 71045

== ENCOUNTER 2023-06-04 13:17 | Oncology outpatient (recurring) (ONCR) | payer MEDICARE, MEDICAID, SELFPAY ==
[2023-05-21 09:39] LABS: Basophils # 0.1 10^3/uL (0.0-0.1); Basophils % 0.7 %; Eosinophils # 0.1 10^3/uL (0.0-0.8); Eosinophils % 1.5 %; Hematocrit 35.5 % (36-47); Lymphocytes # 2.1 10^3/uL (0.8-4.8); Lymphocytes % 24.3 %; Mean Corpuscular Hemoglobin 25.5 pg (27-33); Mean Corpuscular Volume 82.4 fl (85-98); Mean Platelet Volume 8.8 fL (7.4-10.4); Monocytes # 0.9 10^3/uL (0.2-0.9); Monocytes % 10.5 %; Neutrophils # 5.39 10^3/uL (1.8-7.7); Neutrophils % 62.5 %; Nucleated Red Blood Cells % 0 %; Platelet Count 308 10^3/cmm (157-399); Red Blood Count 4.31 10^6/uL (3.85-5.65); White Blood Count 8.61 10^3/uL (3.29-11.43)
[2023-05-21 09:57] LABS: Alanine Aminotransferase 10 U/L (0-33); Albumin Level 3.7 g/dL (3.5-5.2); Alkaline Phosphatase 110 U/L (35-105); Anion Gap 15.3 (5-19); Aspartate Amino Transferase 11 U/L (0-32); Blood Urea Nitrogen 12 mg/dL (8-23); Calcium 9.6 mg/dL (8.5-10.5); Carbon Dioxide 27 mmol/L (22-29); Chloride 99 mmol/L (98-107); Globulin 3.5 g/dL (1.3-4.6); Glomerular Filtration Rate 84.5 mL/min (90-130); Glucose 107 mg/dL (65-115); Osmolality Calculated 284 mOsm/kg (285-295); Potassium 4.3 mmol/L (3.5-5.1); Sodium 137 mmol/L (136-145); Total Bilirubin 0.2 mg/dL (0.15-1.2); Total Protein 7.2 g/dL (6.6-8.7)
[2023-05-21 10:10] LABS: Ferritin 78 ng/mL (15-150); Iron 31 ug/dL (37-145); Percent Saturation 11.3 % (20-50); Total Iron Binding Capacity 274 mcg/dl; Unsaturated Iron Binding 243 ug/dL (112-347)
[2023-05-21 10:19] LABS: Folate Level 4.8 ng/mL (4.8-37.3)
--- NOTE | 2023-05-21 13:19 | N.ONRAD NP_ITS ---
Radiation Oncology New Patient Visit Patient: Tejal Yoo MR#: [id number] : 1960 Age: 62 Sex: Female Dictated by: Dr. Radha Mantilla Date of Service: 05/21/2023 Referring Physician(s) : Dr. Christy Diagnosis: Recurrent squamous cell carcinoma of the lung after surgical resection now with right hilar adenopathy Radiotherapy to date: Summary > prior radiation at [facility]s in [facility]. Underwent XRT to Right breast. Chief Complaint / History of Present Illness: Patient is a 62-year-old who in the summer 2022 was found to have an abnormality on a chest x-ray. She had a bronchoscopy done which confirmed this was a squamous cell carcinoma, grade 2. At the time it was felt that it was she was a surgical candidate. She had the right upper lobe resected. The mass was still stage T2 N0 but it had lymphovascular and perineural invasion. Follow-up PET scan this last month showed that she had a right hilar mass with significant uptake. This is just 6 months after her surgery. She had visit with Dr. Christy in medical oncology and is here today to discuss combined modality therapy for squamous of carcinoma of the lung Current Medications: albuterol sulfate 90 mcg/actuation 2 puffs inhalation DIRECTED aspirin 81 mg PO DAILY atorvastatin 20 mg PO DAILY azelastine 2 sprays intranasal BID citalopram (Celexa) 40 mg PO DAILY ferrous sulfate (Rohan-Time) 325 mg PO DAILY fluticasone propionate 50 mcg/actuation 2 sprays intranasal DAILY meclizine 25 mg PO BID PRN naproxen sodium (Aleve) 440 mg PO BEDTIME Nexium (esomeprazole magnesium) 40 mg PO BID NS propranolol 20 mg PO BID topiramate 25 mg PO DAILY PRN umeclidinium 62.5 mcg/actuation (Incruse Ellipta) 1 inh inhalation DEMETRIA Allergies: codeine Allergy (Verified 05/21/23 10:17) Unknown morphine Allergy (Verified 05/21/23 10:17) Unknown hydrocodone Adverse Reaction (Mild, Verified 05/21/23 10:17) make me sick Medical History: No history of collagen vascular disease. Non-small cell lung cancer History of malignant melanoma of skin Seasonal allergies Seizure GERD (gastroesophageal reflux disease) History of breast cancer with radiation and chemotherapy Anxiety and depression Shoulder pain Dizziness Dyslipidemia Surgical History: History of melanoma excision Hx of removal of ovary Status post surgical removal of malignant neoplasm of skin History of cholecystectomy H/O carpal tunnel repair Family History: CAD (coronary artery disease) Stroke Social History: Smoking and tobacco/nicotine status: current every day tobacco/nicotine user cigarettes Packs smoked per day: 0.75 Years cigarettes smoked: 45 [ Other cigarette details: 4-5 cigarettes daily] Quit status (tobacco/nicotine): has tried quitting Number of times tried to quit tobacco: 3 Second hand smoke exposure: No Alcohol intake: never Substance/Drug Use: former Date of last use: years Current gender identity: Female Current Complaints / Review of Systems: . Pain in her right shoulder secondary to rotator cuff Vital Signs: Performed on 05/21/2023 11:40 AM BMI - 25.061 kg/m2 (high), Height - 64 in, Weight - 146 lbs, Temperature - 98.6 f, Pulse - 87 /min, Respiration - 18 /min, O2 Sat - 94 % (low), Pain - 4, Fatigue - 5 and BP - 121/ 67 mm(hg). Physical Exam: General patient is a pleasant 62-year-old lady older appearing than her stated age. HEENT: Normocephalic atraumatic. Pupils are equal, sclera clear, extraocular muscles intact Pulm: Respiratory rate is regular and nonlabored. She had several episodes of significant coughing during our encounter. Her lungs were quite coarse to auscultation Cardiovascular: Regular rate and rhythm Abdomen: Fairly flat and nondistended Skin: Warm and dry. Patient is quite fair with pale skin and freckles Neurological: Alert and orient x 3. Gait and speech within normal limits Psych: Affect appropriate for current situation Extremities: No lymphedema is noted in the right upper extremity Performance Status: 90 Pathology: Squamous cell carcinoma of the lung Lab: Imaging: See HPI Impression: Recurrent squamous of carcinoma of the lung since months after surgery now with mediastinal hilar disease Plan: She is previously met with medical oncology and has discuss combined modality therapy. We discussed the radiation portion of the treatment. We reviewed the simulation process. We discussed the daily treatment regiment. I reviewed with her the risks and side effects both acute and long-term. At this point she had no additional questions or concerns. She is still in the midst of workup and that she has an MRI that will be scheduled. Will go ahead and get her simulation done sometime this week so that we will be ready to initiate her treatment when her workup is complete and can coordinate with medical oncology Signed by: 05/21/2023 1:17:52 PM <<Signature on File>> Time spent with patient:45 CPT Code: CPT Code:
[2023-05-29 10:48] LABS: Basophils # 0.1 10^3/uL (0.0-0.1); Basophils % 0.6 %; Eosinophils # 0.2 10^3/uL (0.0-0.8); Eosinophils % 2.3 %; Lymphocytes # 1.9 10^3/uL (0.8-4.8); Mean Corpuscular HGB Conc 30.9 g/dL (30-55); Mean Corpuscular Hemoglobin 25.6 pg (27-33); Mean Corpuscular Volume 82.9 fl (85-98); Mean Platelet Volume 9.2 fL (7.4-10.4); Monocytes # 0.8 10^3/uL (0.2-0.9); Monocytes % 10.3 %; Neutrophils % 62.5 %; Nucleated Red Blood Cells % 0 %; Platelet Count 277 10^3/cmm (157-399); Red Blood Count 3.98 10^6/uL (3.85-5.65); White Blood Count 7.84 10^3/uL (3.29-11.43)
[2023-05-29 11:06] LABS: Alanine Aminotransferase 11 U/L (0-33); Albumin Level 3.4 g/dL (3.5-5.2); Alkaline Phosphatase 106 U/L (35-105); Aspartate Amino Transferase 13 U/L (0-32); Blood Urea Nitrogen 13 mg/dL (8-23); Calcium 9.4 mg/dL (8.5-10.5); Carbon Dioxide 27 mmol/L (22-29); Chloride 102 mmol/L (98-107); Creatinine Clr Calc Pharmacy 77.2559; Globulin 3.5 g/dL (1.3-4.6); Glomerular Filtration Rate 84.5 mL/min (90-130); Glucose 134 mg/dL (65-115); Osmolality Calculated 286 mOsm/kg (285-295); Sodium 137 mmol/L (136-145); Total Bilirubin 0.2 mg/dL (0.15-1.2); Total Protein 6.9 g/dL (6.6-8.7)
[2023-05-29 11:11] LABS: Anion Gap 12.6 (5-19); Potassium 4.6 mmol/L (3.5-5.1)
[2023-05-30 10:55] VITALS: BP 131/75; PULSE 94; RESP 16; TEMP 36.9; O2SAT 95
[2023-05-30] MEDS: sodium chloride 0.9% 250 ML 75 ML IV (11:46)
[2023-05-30] MEDS: acetaminophen 325 mg Tablet 650 MG PO (11:49)
[2023-05-30] MEDS: famotidine 20 mg/2 mL INJ IVP (11:49)
[2023-05-30] MEDS: diphenhydrAMINE 50 mg/mL SDV 1mL 25 MG IVP (11:52)
[2023-05-30] MEDS: dexamethasone 20 MG in sodium chloride 0.9% 50 ML 188 MG IV (11:55)
[2023-05-30] MEDS: PACLitaxeL 90 MG in sodium chloride 0.9%(non-DEHP) 250 ML 265 MG IV (12:41)
[2023-05-30] MEDS: CARBOplatin 220 MG in sodium chloride 0.9% 500 ML 522 MG IV (14:02)
[2023-05-30 15:01] VITALS: BP 151/80; PULSE 88; RESP 16; TEMP 37.2; O2SAT 99
[2023-06-01] MEDS: iron sucrose 500 MG in sodium chloride 0.9% 250 ML 78 MG IV (07:50)
[2023-06-01 07:52] VITALS: BP 104/68; PULSE 92; RESP 16; O2SAT 98
[2023-06-01 10:53] VITALS: BP 130/78; PULSE 90; TEMP 37.1; O2SAT 96
== END 2023-06-04 23:59 | disposition home or self-care (01) ==
PROVIDERS: Internal Medicine; Nurse Practitioner Family; PCP Family Medicine; Visit Provider Radiology Radiation Oncology
DX: C34.11 Malignant neoplasm of upper lobe, right bronchus or lung (principal); F17.200 Nicotine dependence, unspecified, uncomplicated; Z51.0 Encounter for antineoplastic radiation therapy
CPT/HCPCS: 36415; 36592; 77300; 77301; 77334; 77338; 77386; 77470; 80053; 82728; 82746; 83540; 83550; 85025; 96365; 96366; 96367; 96374; 96375; 96413; 96417; 99205; 99214; 99215; J1100; J1200; J1756; J3490; J7040; J7050; J9045; J9267

== ENCOUNTER 2023-06-05 09:59 | Outpatient (CLI) | payer MEDICARE, MEDICAID, SELFPAY ==
--- NOTE | 2023-06-05 10:30 | CTR_ITS ---
PROCEDURE INFORMATION: Exam: CT Chest With Contrast; Diagnostic Exam date and time: 06/05/2023 11:11 AM Age: 62 years old Clinical indication: Condition or disease; Other: Squamous cell carcinoma of lung; Lung condition and disease; Prior surgery; Surgery date: 6+ months; Surgery type: Right lung, left ovary, gb; Additional info: Squamous cell cacinoma TECHNIQUE: Imaging protocol: Diagnostic computed tomography of the chest with contrast. Radiation optimization: All CT scans at this facility use at least one of these dose optimization techniques: automated exposure control; mA and/or kV adjustment per patient size (includes targeted exams where dose is matched to clinical indication); or iterative reconstruction. Contrast material: OMNI 350; Contrast volume: 100 ml; Contrast route: INTRAVENOUS (IV); [id number] 04/17/2023 8:49 AM RADIATION DOSE METRICS: Total DLP (mGy-cm): 651.72 FINDINGS: Tubes, catheters and devices: Left upper extremity PICC line terminates in mid SVC. Lungs: Right upper lobectomy surgical changes redemonstrated. Centrilobular emphysema. No acute pulmonary consolidation. No acute endobronchial obstruction. Negative for peripheral honeycombing. Pleural spaces: Unremarkable. No pneumothorax. No pleural effusion. Heart: Unremarkable. No cardiomegaly. No pericardial effusion. Esophagus: Unremarkable thoracic esophagus. Mediastinal space: Partially necrotic mass centered in the right hilum redemonstrated measuring approximately 5.3 cm x 4.2 cm in the transaxial plane measured axial series 3, image 26. There is a thin irregular peripheral rim of enhancement with central hypoattenuating features. Probable mild enlargement compared to prior. Lymph nodes: Unremarkable. No enlarged lymph nodes. Vasculature: Unremarkable. No aortic aneurysm. Bones/joints: Unremarkable. No acute fracture. Soft tissues: Unremarkable. COMMENTS: The presence of pulmonary emphysema on CT is an independent risk factor for lung cancer. In the absence of a history or active diagnosis of lung cancer, it is recommended that this patient with emphysema be evaluated for enrollment in a low dose CT lung cancer screening program. PROCEDURE INFORMATION: Exam: CT Abdomen And Pelvis With Contrast Exam date and time: 06/05/2023 11:11 AM Age: 62 years old Clinical indication: Condition or disease; Other: Squamous cell carcinoma of lung; Lung condition and disease; Prior surgery; Surgery date: 6+ months; Surgery type: Right lung, left ovary, gb; Additional info: Squamous cell cacinoma TECHNIQUE: Imaging protocol: Computed tomography of the abdomen and pelvis with contrast. Radiation optimization: All CT scans at this facility use at least one of these dose optimization techniques: automated exposure control; mA and/or kV adjustment per patient size (includes targeted exams where dose is matched to clinical indication); or iterative reconstruction. Contrast material: OMNI 350; Contrast volume: 100 ml; Contrast route: INTRAVENOUS (IV); COMPARISON[facility] [id number] 04/17/2023 8:49 AM RADIATION DOSE METRICS: Total DLP (mGy-cm): 651.72 FINDINGS: Liver: Normal. No mass. Gallbladder and bile ducts: Cholecystectomy. Unremarkable biliary system. Pancreas: Normal. No ductal dilation. Spleen: Normal. No splenomegaly. Adrenal glands: Normal. No mass. Kidneys and ureters: Normal. No hydronephrosis. Stomach and bowel: Unremarkable. No obstruction. No mucosal thickening. Appendix: No evidence of appendicitis. Intraperitoneal space: Unremarkable. No free air. No significant fluid collection. Vasculature: Unremarkable. No abdominal aortic aneurysm. Lymph nodes: Unremarkable. No enlarged lymph nodes. Urinary bladder: Unremarkable as visualized. Reproductive: Unremarkable as visualized. Bones/joints: Unremarkable. No acute fracture. Soft tissues: Unremarkable. CT/CT chest abdpel w/*[id number] IMPRESSION: 1. Large necrotic right hilar mass is likely mildly increased in size from 04/17/2023. 2. No new thoracic findings. IMPRESSION: 1. Negative for acute abdominopelvic pathology. 2. Negative for abdominopelvic metastatic disease.
[2023-06-05] MEDS: iohexol 350 mg/mL 500 mL Btl (per mL) PO (11:07)
[2023-06-05] MEDS: iohexol 350 mg/mL 500 mL Btl (per mL) IV (11:16)
== END 2023-06-05 10:00 | disposition home or self-care (01) ==
LOC: RAD 09:59
PROVIDERS: PCP Family Medicine; Visit Provider Internal Medicine
DX: C34.11 Malignant neoplasm of upper lobe, right bronchus or lung (principal)
CPT/HCPCS: 71260; 74177; Q9967

== ENCOUNTER 2023-06-05 12:06 | Oncology outpatient (recurring) (ONCR) | payer MEDICARE, MEDICAID, SELFPAY | END 2023-06-05 23:59 | disposition home or self-care (01) | LOC: ONCMED 12:07 | PROVIDERS: PCP Family Medicine; Visit Provider Radiology Radiation Oncology | DX: C34.11 Malignant neoplasm of upper lobe, right bronchus or lung (principal); F17.210 Nicotine dependence, cigarettes, uncomplicated; Z92.3 Personal history of irradiation; Z85.3 Personal history of malignant neoplasm of breast; Z85.820 Personal history of malignant melanoma of skin; Z51.0 Encounter for antineoplastic radiation therapy; J43.1 Panlobular emphysema; Z90.2 Acquired absence of lung [part of] | CPT/HCPCS: 71260; 74177; 77386; Q9967 ==

== ENCOUNTER 2023-06-07 15:48 | Outpatient (CLI) | payer MEDICARE, MEDICAID, SELFPAY ==
--- NOTE | 2023-06-07 16:45 | MR_ITS ---
WS: [id number] MRI HEAD WITH CONTRAST TECHNIQUE: Sagittal T1, T2 axial, T2 axial FLAIR, axial susceptibility weighted imaging, axial diffus ion weighted images, and coronal T2 images were obtained. Pre and post-T1 axial and post T1 coronal i mages. ADC and FSPGR images. CLINICAL INFORMATION: squamous cell carcinoma COMPARISON: CT head 10/14/2019 FINDINGS: No evidence of restricted diffusion to suggest acute ischemia. Ventricular system and basal cisterns are patent. Mild small vessel changes. Small vessel changes in the deepthi. Moderate parenchymal volume loss. Normal optic chiasm and pituitary infundibulum. Mild symmetric atrophy temporal lobes and hippo campal formations. 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 Normal posterior fossa. Normal vascular flow voids at the skull base. No extra-axial fluid collec tions. Paranasal sinuses are well aerated. Mastoid air cells are well aerated. Normal posterior nasop harynx. No hemosiderin on the susceptibility weighted images. No evidence of enhancing intracranial metastatic disease. Normal optic chiasm and pituitary infundibu lum. Normal visualized dural venous sinuses. MR/MR head wo/w con [id number] IMPRESSION: 1. No evidence of enhancing intracranial metastatic disease. 2. Mild small vessel changes with moderate parenchymal volume loss. Small vess el changes in the deepthi. 3. 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 4. No other acute findings.
[2023-06-07] MEDS: gadobenate dimeglumine 20 mL vial IV (16:48)
== END 2023-06-07 15:49 | disposition home or self-care (01) ==
LOC: RAD 15:49
PROVIDERS: PCP Family Medicine; Visit Provider Internal Medicine
DX: C34.11 Malignant neoplasm of upper lobe, right bronchus or lung (principal); G31.89 Other specified degenerative diseases of nervous system; G93.89 Other specified disorders of brain
CPT/HCPCS: 70553; A9577

== ENCOUNTER 2023-06-15 07:13 | Oncology outpatient (recurring) (ONCR) | payer MEDICARE, MEDICAID, SELFPAY ==
[2023-06-06 07:44] LABS: Basophils # 0.1 10^3/uL (0.0-0.1); Basophils % 0.6 %; Eosinophils # 0.3 10^3/uL (0.0-0.8); Eosinophils % 3.1 %; Hematocrit 34.1 % (36-47); Lymphocytes # 1.2 10^3/uL (0.8-4.8); Lymphocytes % 15.1 %; Mean Corpuscular HGB Conc 31.4 g/dL (30-55); Mean Corpuscular Volume 82.8 fl (85-98); Mean Platelet Volume 8.8 fL (7.4-10.4); Monocytes # 1.2 10^3/uL (0.2-0.9); Monocytes % 14.7 %; Neutrophils # 5.35 10^3/uL (1.8-7.7); Nucleated Red Blood Cells % 0 %; Platelet Count 288 10^3/cmm (157-399); Red Blood Count 4.12 10^6/uL (3.85-5.65); Red Cell Distribution Width 14.2 % (12.1-15.1)
[2023-06-06 08:08] LABS: Alanine Aminotransferase 13 U/L (0-33); Albumin Level 3.7 g/dL (3.5-5.2); Alkaline Phosphatase 115 U/L (35-105); Anion Gap 15.3 (5-19); Aspartate Amino Transferase 14 U/L (0-32); Blood Urea Nitrogen 11 mg/dL (8-23); Calcium 9.5 mg/dL (8.5-10.5); Carbon Dioxide 26 mmol/L (22-29); Chloride 101 mmol/L (98-107); Globulin 3.6 g/dL (1.3-4.6); Glomerular Filtration Rate 84.5 mL/min (90-130); Glucose 138 mg/dL (65-115); Osmolality Calculated 288 mOsm/kg (285-295); Potassium 4.3 mmol/L (3.5-5.1); Sodium 138 mmol/L (136-145); Total Bilirubin 0.2 mg/dL (0.15-1.2); Total Protein 7.3 g/dL (6.6-8.7)
[2023-06-06] MEDS: sodium chloride 0.9% 250 ML 75 ML IV (10:24)
[2023-06-06] MEDS: acetaminophen 325 mg Tablet 650 MG PO (10:26)
[2023-06-06] MEDS: famotidine 20 mg/2 mL INJ IVP (10:27)
[2023-06-06] MEDS: diphenhydrAMINE 50 mg/mL SDV 1mL 25 MG IVP (10:31)
[2023-06-06 10:33] VITALS: BP 107/70; PULSE 100; RESP 16; TEMP 36.7; O2SAT 96
[2023-06-06] MEDS: dexamethasone 20 MG in sodium chloride 0.9% 50 ML 188 MG IV (10:41)
[2023-06-06] MEDS: PACLitaxeL 90 MG in sodium chloride 0.9%(non-DEHP) 250 ML 265 MG IV (11:06)
[2023-06-06 12:00] VITALS: BP 151/83; PULSE 102; RESP 18; O2SAT 94
[2023-06-06] MEDS: ipratropium-albuterol 3 mL Neb INHALATION (12:04)
[2023-06-06] MEDS: methylPREDNISolone sod succ 125 mg/2 mL INJ IVP (12:12)
--- NOTE | 2023-06-06 12:12 | PC.NURSE ---
Lenore Linder RIG OPERATOR at bedside, verbal order for solumedrol 125mg IVP
[2023-06-06 12:16] VITALS: BP 130/77; PULSE 101; RESP 18; TEMP 36.7; O2SAT 97
[2023-06-06] MEDS: CARBOplatin 220 MG in sodium chloride 0.9% 500 ML 522 MG IV (13:24)
[2023-06-06 14:27] VITALS: BP 125/66; PULSE 97; RESP 17; TEMP 36.8; O2SAT 94
--- NOTE | 2023-06-09 22:54 | ONCRAD TMN_ITS ---
Radiation Oncology Weekly Treatment Management Patient: Tejal Yoo MR#: [id number] : 1960 Attending Physician: Colin Saenz Date of Service: 06/06/2023 Referring Physician(s) : Diagnosis: C34.91 - Malignant neoplasm of unspecified part of right bronchus or lung, Diagnosed 05/22/2023 (Active) Radiotherapy to date: Course: R latoya/mediastin, Treatment Site: R latoya/mediastinum, Ref. ID: [id number], Energy: 6X, Dose/Fx (cGy): 200, #Fx: 6 30, Dose Correction (cGy): 0, Total Dose Delivered (cGy): 1,200, Start Date: 05/30/2023, Elapsed Days: 7 Reason for visit: The patient is being seen today as part of their regularly scheduled weekly on treatment visits to assess for acute toxicities from radiotherapy. Review of Systems: She had a reaction in chemo suite with impaired breathingnow better. Eating ok with some tenderness on swallowing on left side. Still smoking ??? ppd. Vital Signs: Performed on 06/06/2023 12:55 PM BMI - 25.061 kg/m2 (high), Height - 64 in, Weight - 146 lbs, Temperature - 97.3 f, Pulse - 63 /min, Respiration - 18 /min, O2 Sat - 96 %, Pain - 3, Fatigue - 0 and BP - 163/ 72 mm(hg)(high/). Physical Exam: Imaging: Radiation therapy imaging related to accurate target localization (i.e. KV, MV and CBCT) was reviewed. Appropriate changes, if any, were made to ensure treatment accuracy. Plan: Good tolerance of radiation. Chemo reaction now improving. Discussed need to quit smoking. Continue treatment as planned. Signed by: Colin Saenz 06/09/2023 10:53:44 PM Telemedicine Consent Patient seen today via Telemedicine by agreement and consent of patient. Telemedicine technology used during the visit include audio and, as available, review of images. This patient encounter is appropriate and reasonable under the circumstances given the patient???s particular presentation at this time. The patient has been advised of the potential risks and limitations of this mode of treatment (including but not limited to the absence of in-person examination) and has agreed to be treated in a remote fashion in spite of them. Any and all of the patient???s/patient???s family???s questions on this issue have been answered and I have made no promises or guarantees to the patient. The patient has also been advised to contact this office for worsening conditions or problems, and seek emergency medical treatment and/or call 911 if the patient deems either necessary.
--- NOTE | 2023-06-12 17:04 | ONCRAD TMN_ITS ---
Radiation Oncology Weekly Treatment Management Patient: Tejal Yoo MR#: [id number] : 1960 Attending Physician: Colin Saenz Date of Service: 06/12/2023 Referring Physician(s) : Diagnosis: C34.91 - Malignant neoplasm of unspecified part of right bronchus or lung, Diagnosed 05/22/2023 (Active) Radiotherapy to date: Course: R latoya/mediastin, Treatment Site: R latoya/mediastinum, Ref. ID: [id number], Energy: 6X, Dose/Fx (cGy): 200, #Fx: , Dose Correction (cGy): 0, Total Dose Delivered (cGy): 2,000, Start Date: 05/30/2023, Elapsed Days: 13 Reason for visit: The patient is being seen today as part of their regularly scheduled weekly on treatment visits to assess for acute toxicities from radiotherapy. Review of Systems: Sore throat treated with some improvement with salt and soda gargles. Eating ok. Quit smoking. Living alone independently. Vital Signs: Performed on 06/12/2023 2:18 PM BMI - 24.924 kg/m2 (high), Height - 64 in, Weight - 145.2 lbs, Temperature - 98.1 f, Pulse - 100 /min, Respiration - 18 /min, O2 Sat - 97 %, Pain - 4, Fatigue - 7 and BP - 102/ 61 mm(hg)(/low). Physical Exam: Imaging: Radiation therapy imaging related to accurate target localization (i.e. KV, MV and CBCT) was reviewed. Appropriate changes, if any, were made to ensure treatment accuracy. Plan: Good tolerance of treatment. Add magic mouthwash. Continue treatment as planned. Signed by: Colin Saenz 06/12/2023 5:02:01 PM
[2023-06-13 07:59] LABS: Basophils # 0.1 10^3/uL (0.0-0.1); Basophils % 0.7 %; Eosinophils # 0.1 10^3/uL (0.0-0.8); Eosinophils % 1.4 %; Hematocrit 32.8 % (36-47); Lymphocytes # 0.8 10^3/uL (0.8-4.8); Lymphocytes % 10.5 %; Mean Corpuscular HGB Conc 31.4 g/dL (30-55); Mean Corpuscular Hemoglobin 26.6 pg (27-33); Mean Corpuscular Volume 84.8 fl (85-98); Mean Platelet Volume 9.1 fL (7.4-10.4); Monocytes % 13.2 %; Neutrophils # 5.28 10^3/uL (1.8-7.7); Neutrophils % 73.6 %; Nucleated Red Blood Cells % 0 %; Platelet Count 263 10^3/cmm (157-399); Red Blood Count 3.87 10^6/uL (3.85-5.65); Red Cell Distribution Width 14.7 % (12.1-15.1); White Blood Count 7.17 10^3/uL (3.29-11.43)
[2023-06-13 08:23] LABS: Alanine Aminotransferase 9 U/L (0-33); Albumin Level 3.5 g/dL (3.5-5.2); Alkaline Phosphatase 98 U/L (35-105); Aspartate Amino Transferase 13 U/L (0-32); Blood Urea Nitrogen 13 mg/dL (8-23); Calcium 9.3 mg/dL (8.5-10.5); Carbon Dioxide 26 mmol/L (22-29); Chloride 98 mmol/L (98-107); Creatinine Clr Calc Pharmacy 89.9604; Globulin 3.4 g/dL (1.3-4.6); Glucose 145 mg/dL (65-115); Osmolality Calculated 281 mOsm/kg (285-295); Sodium 134 mmol/L (136-145); Total Bilirubin 0.2 mg/dL (0.15-1.2); Total Protein 6.9 g/dL (6.6-8.7)
[2023-06-13 08:25] LABS: Anion Gap 14.6 (5-19); Potassium 4.6 mmol/L (3.5-5.1)
--- NOTE | 2023-06-13 08:39 | PC.PHAR ---
VERBAL ORDER FROM JORGE ALBERTO THIS MORNING TO STOP CARBO TAXOL AND SWITCH PATIENT TO WEEKLY ABRAXANE/CARBOPLATIN. JORGE ALBERTO PROVIDED TEMPLATE NSC54 TO BE BUILT AND PLACED ON PATIENT'S PROFILE. PATIENT NEEDS TO BEGIN AT CYCLE 3 TODAY. THIS TREATMENT WILL BE FOLLOWED BY DURVALUMAB.
--- NOTE | 2023-06-13 09:37 | ECG_ITS ---
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 Measurements Intervals [place] Rate: 89 P: 53 ID: [id number] QRS: 57 QRSD: 85 T: 67 QT: 363 QTc: 443 Interpretive Statements SINUS RHYTHM POSSIBLE LEFT ATRIAL ENLARGEMENT [-0.1mV P WAVE IN V1/V2] INTERPRETATION BASED ON A DEFAULT AGE OF 40 YEARS Compared to ECG 10/15/2019 00:55:19 No significant changes Electronically Signed On 06-13-2023 20:14:51 CDT by Jordyn Dick M.D. [email or web address]/[id number] f
[2023-06-13] MEDS: ondansetron 2 mg/ML SDV 2 mL 8 MG IVP (10:20)
[2023-06-13] MEDS: ipratropium-albuterol 3 mL Neb INHALATION (10:20)
[2023-06-13] MEDS: sodium chloride 0.9% 250 ML 75 ML IV (10:20)
[2023-06-13] MEDS: paclitaxel protein-bound 170 MG in empty flexible container 1 EACH 68 MG IV (11:06)
[2023-06-13] MEDS: CARBOplatin 250 MG in sodium chloride 0.9% 500 ML 525 MG IV (12:25)
[2023-06-13 13:35] VITALS: BP 120/69; PULSE 100; RESP 16; TEMP 37; O2SAT 98
== END 2023-06-15 23:59 | disposition home or self-care (01) ==
PROVIDERS: Nurse Practitioner Family; PCP Family Medicine; Visit Provider Radiology Radiation Oncology
DX: C34.11 Malignant neoplasm of upper lobe, right bronchus or lung (principal); F17.210 Nicotine dependence, cigarettes, uncomplicated; Z51.0 Encounter for antineoplastic radiation therapy
CPT/HCPCS: 77336; 77386; 80053; 85025; 93005; 96367; 96375; 96413; 96417; 99024; 99214; J1100; J1200; J2405; J2919; J3490; J7040; J7050; J9045; J9264; J9267

== ENCOUNTER 2023-06-27 07:30 | Oncology outpatient (recurring) (ONCR) | payer MEDICARE, MEDICAID, SELFPAY ==
--- NOTE | 2023-06-19 23:30 | ONCRAD TMN_ITS ---
Radiation Oncology Weekly Treatment Management Patient: Fredo Haq MR#: [id number] : 1960> Attending Physician: Colin Saenz Date of Service: 06/18/2023 Referring Physician(s) : Diagnosis: C34.91 - Malignant neoplasm of unspecified part of right bronchus or lung, Diagnosed 05/22/2023 (Active) Radiotherapy to date: Course: R latoya/mediastin, Treatment Site: R latoya/mediastinum, Ref. ID: [id number], Energy: 6X, Dose/Fx (cGy): 200, #Fx: , Dose Correction (cGy): 0, Total Dose Delivered (cGy): 2,800, Start Date: 05/30/2023, Elapsed Days: 19 Reason for visit: The patient is being seen today as part of their regularly scheduled weekly on treatment visits to assess for acute toxicities from radiotherapy. Review of Systems: Some central chest pain 3 on 10 scale. Slept a lot over weekend. She has magic mouthwash. Vital Signs: Performed on 06/18/2023 1:26 PM BMI - 24.203 kg/m2 (high), Height - 64 in, Weight - 141 lbs, Temperature - 97.8 f, Pulse - 90 /min, Respiration - 17 /min, O2 Sat - 95 % (low), Pain - 3, Fatigue - 6 and BP - 92/ 59 mm(hg)(/low). Physical Exam: Imaging: Radiation therapy imaging related to accurate target localization (i.e. KV, MV and CBCT) was reviewed. Appropriate changes, if any, were made to ensure treatment accuracy. Plan: Good tolerance of treatment. Continue as planned. 10 minutes with patient and with charting Signed by: Colin Saenz 06/19/2023 11:27:45 PM Telemedicine Consent Patient seen today via Telemedicine by agreement and consent of patient. Telemedicine technology used during the visit include audio and, as available, review of images. This patient encounter is appropriate and reasonable under the circumstances given the patient???s particular presentation at this time. The patient has been advised of the potential risks and limitations of this mode of treatment (including but not limited to the absence of in-person examination) and has agreed to be treated in a remote fashion in spite of them. Any and all of the patient???s/patient???s family???s questions on this issue have been answered and I have made no promises or guarantees to the patient. The patient has also been advised to contact this office for worsening conditions or problems, and seek emergency medical treatment and/or call 911 if the patient deems either necessary.
[2023-06-20 07:59] LABS: Basophils % 0.6 %; Eosinophils % 0.9 %; Hematocrit 32.2 % (36-47); Lymphocytes # 0.5 10^3/uL (0.8-4.8); Lymphocytes % 14.8 %; Mean Corpuscular HGB Conc 31.7 g/dL (30-55); Mean Corpuscular Hemoglobin 26.4 pg (27-33); Mean Corpuscular Volume 83.2 fl (85-98); Monocytes # 0.4 10^3/uL (0.2-0.9); Monocytes % 11.4 %; Neutrophils # 2.35 10^3/uL (1.8-7.7); Neutrophils % 70.8 %; Nucleated Red Blood Cells % 0 %; Platelet Count 168 10^3/cmm (157-399); Red Blood Count 3.87 10^6/uL (3.85-5.65); Red Cell Distribution Width 14.7 % (12.1-15.1); White Blood Count 3.32 10^3/uL (3.29-11.43)
[2023-06-20 08:36] LABS: Alanine Aminotransferase 9 U/L (0-33); Albumin Level 3.6 g/dL (3.5-5.2); Alkaline Phosphatase 98 U/L (35-105); Anion Gap 14.2 (5-19); Aspartate Amino Transferase 11 U/L (0-32); Blood Urea Nitrogen 17 mg/dL (8-23); Calcium 9.4 mg/dL (8.5-10.5); Carbon Dioxide 25 mmol/L (22-29); Chloride 101 mmol/L (98-107); Creatinine Clr Calc Pharmacy 67.2899; Globulin 3.2 g/dL (1.3-4.6); Glomerular Filtration Rate 72.4 mL/min (90-130); Glucose 140 mg/dL (65-115); Osmolality Calculated 286 mOsm/kg (285-295); Potassium 4.2 mmol/L (3.5-5.1); Sodium 136 mmol/L (136-145); Total Bilirubin 0.2 mg/dL (0.15-1.2); Total Protein 6.8 g/dL (6.6-8.7)
[2023-06-20] MEDS: sodium chloride 0.9% 250 ML 75 ML IV (09:40)
[2023-06-20] MEDS: ondansetron 2 mg/ML SDV 2 mL 8 MG IVP (09:42)
[2023-06-20] MEDS: paclitaxel protein-bound 170 MG in empty flexible container 1 EACH 68 MG IV (10:20)
[2023-06-20] MEDS: CARBOplatin 250 MG in sodium chloride 0.9% 500 ML 525 MG IV (11:15)
[2023-06-20] MEDS: iron sucrose 500 MG in sodium chloride 0.9% 250 ML 78 MG IV (12:30)
[2023-06-20 15:20] VITALS: BP 122/75; PULSE 99; RESP 16; TEMP 36.9; O2SAT 93
[2023-06-25] MEDS: sodium chloride 0.9% 1,000 ML 999 ML IV (14:14)
[2023-06-25 15:26] VITALS: BP 112/68; PULSE 101; TEMP 36.6; O2SAT 94
--- NOTE | 2023-06-26 14:48 | ONCRAD TMN_ITS ---
Radiation Oncology Weekly Treatment Management Patient: Tejal Yoo MR#: [id number] : 1960 Attending Physician: Dr. Radha Mantilla Date of Service: 06/26/2023 Fractions: 20 out of 30 with chemotherapy tomorrow Referring Physician(s) : Diagnosis: C34.91 - Malignant neoplasm of unspecified part of right bronchus or lung, Diagnosed 05/22/2023 (Active) Radiotherapy to date: Course: R latoya/mediastin, Treatment Site: R latoya/mediastinum, Ref. ID: [id number], Energy: 6X, Dose/Fx (cGy): 200, #Fx: 20 / 30, Dose Correction (cGy): 0, Total Dose Delivered (cGy): 4,000, Start Date: 05/30/2023, Elapsed Days: 27 Reason for visit: The patient is being seen today as part of their regularly scheduled weekly on treatment visits to assess for acute toxicities from radiotherapy. Review of Systems: Patient had quite a bit of difficulty yesterday with orthostatic hypotension. She had not been able to eat or drink very much. She has noticed that the Magic mix that she uses to help with her sore gums makes her nauseous. She does not have much of an appetite. Vital Signs: Performed on 06/26/2023 1:47 PM BMI - 24.374 kg/m2 (high), Height - 64 in, Weight - 142 lbs, Temperature - 97.4 f, Pulse - 101 /min (high), Respiration - 18 /min, O2 Sat - 89 % (low), Pain - 0, Fatigue - 4 and BP - 83/ 53 mm(hg)(low). Physical Exam: On exam today she actually looks fairly good. Her color is good. Her affect is back to normal. Her walk is without problems. Imaging: Radiation therapy imaging related to accurate target localization (i.e. KV, MV and CBCT) was reviewed. Appropriate changes, if any, were made to ensure treatment accuracy. Plan: Will continue with her treatments as planned. They will give her additional fluids tomorrow with her chemotherapy. I encouraged her to use her Magic mix just on her finger to make sure that she just numbs of the areas on her gum that are sore rather than swish and swallow the whole thing. Also encouraged her to drink more once she is not nauseous. I did encourage her to take her nausea medicine. Signed by: Dr. Radha Mantilla 06/26/2023 2:46:53 PM
[2023-06-27 07:39] LABS: Basophils % 0.4 %; Eosinophils % 0.8 %; Hematocrit 30.3 % (36-47); Lymphocytes # 0.5 10^3/uL (0.8-4.8); Mean Corpuscular HGB Conc 31.7 g/dL (30-55); Mean Corpuscular Hemoglobin 26.2 pg (27-33); Mean Corpuscular Volume 82.8 fl (85-98); Mean Platelet Volume 8.8 fL (7.4-10.4); Monocytes # 0.2 10^3/uL (0.2-0.9); Monocytes % 8.7 %; Neutrophils % 70.3 %; Nucleated Red Blood Cells % 0 %; Platelet Count 90 10^3/cmm (157-399); Red Blood Count 3.66 10^6/uL (3.85-5.65); Red Cell Distribution Width 14.8 % (12.1-15.1); White Blood Count 2.42 10^3/uL (3.29-11.43)
[2023-06-27 07:56] LABS: Alanine Aminotransferase 11 U/L (0-33); Albumin Level 3.6 g/dL (3.5-5.2); Alkaline Phosphatase 99 U/L (35-105); Anion Gap 14.2 (5-19); Aspartate Amino Transferase 15 U/L (0-32); Blood Urea Nitrogen 11 mg/dL (8-23); Calcium 8.8 mg/dL (8.5-10.5); Carbon Dioxide 25 mmol/L (22-29); Chloride 98 mmol/L (98-107); Creatinine Clr Calc Pharmacy 67.2899; Globulin 3.2 g/dL (1.3-4.6); Glomerular Filtration Rate 72.4 mL/min (90-130); Glucose 117 mg/dL (65-115); Osmolality Calculated 276 mOsm/kg (285-295); Potassium 4.2 mmol/L (3.5-5.1); Sodium 133 mmol/L (136-145); Total Bilirubin 0.2 mg/dL (0.15-1.2); Total Protein 6.8 g/dL (6.6-8.7)
[2023-06-27 09:20] VITALS: BMI 24.7
[2023-06-27] MEDS: ondansetron 2 mg/ML SDV 2 mL 8 MG IVP (09:38)
[2023-06-27] MEDS: sodium chloride 0.9% 250 ML 75 ML IV (09:38)
[2023-06-27] MEDS: paclitaxel protein-bound 170 MG in empty flexible container 1 EACH 68 MG IV (10:28)
[2023-06-27 12:02] VITALS: BP 118/70; PULSE 90; TEMP 36.3; O2SAT 98
== END 2023-06-27 23:59 | disposition home or self-care (01) ==
PROVIDERS: Nurse Practitioner Family; PCP Family Medicine; Visit Provider Radiology Radiation Oncology
DX: C34.11 Malignant neoplasm of upper lobe, right bronchus or lung (principal); F17.210 Nicotine dependence, cigarettes, uncomplicated; Z85.3 Personal history of malignant neoplasm of breast; Z85.820 Personal history of malignant melanoma of skin; Z51.0 Encounter for antineoplastic radiation therapy; Z51.11 Encounter for antineoplastic chemotherapy; Z53.9 Procedure and treatment not carried out, unspecified reason; J43.1 Panlobular emphysema
CPT/HCPCS: 77336; 77386; 80053; 85025; 96360; 96366; 96367; 96375; 96413; 96417; 99024; 99214; J1100; J1756; J2405; J7030; J7040; J7050; J9045; J9264

== ENCOUNTER 2023-07-06 09:30 | Oncology outpatient (recurring) (ONCR) | payer MEDICARE, MEDICAID, SELFPAY ==
--- NOTE | 2023-07-03 14:39 | ONCRAD TMN_ITS ---
Radiation Oncology Weekly Treatment Management Patient: Tejal Yoo MR#: [id number] : 1960 Attending Physician: Dr. Radha Mantilla Date of Service: 07/03/2023 Fractions: 24 out of 30 with chemotherapy tomorrow Referring Physician(s) : Diagnosis: C34.91 - Malignant neoplasm of unspecified part of right bronchus or lung, Diagnosed 05/22/2023 (Active) Radiotherapy to date: Course: R latoya/mediastin, Treatment Site: R latoya/mediastinum, Ref. ID: [id number], Energy: 6X, Dose/Fx (cGy): 200, #Fx: , Dose Correction (cGy): 0, Total Dose Delivered (cGy): 4,800, Start Date: 05/30/2023, Elapsed Days: 34 Reason for visit: The patient is being seen today as part of their regularly scheduled weekly on treatment visits to assess for acute toxicities from radiotherapy. Review of Systems: Patient is began to experience fairly significant esophagitis. She says it is a dull ache all the time but when she goes to swallow is quite significant. It even bothers her when she coughs. Vital Signs: Performed on 07/03/2023 2:30 PM BMI - 23.619 kg/m2 (high), Height - 64 in, Weight - 137.6 lbs, Temperature - 98.6 f, Pulse - 69 /min, Respiration - 16 /min, O2 Sat - 96 %, Pain - 7, Fatigue - 7 and BP - 72/ 50 mm(hg)(low). Physical Exam: No changes on exam Imaging: Radiation therapy imaging related to accurate target localization (i.e. KV, MV and CBCT) was reviewed. Appropriate changes, if any, were made to ensure treatment accuracy. Plan: I reviewed with her that this is from the radiation. That is because swelling and rawness through that area of her esophagus. We talked about how it would be that way until we finish treatment and for at least 5 days after. I recommended to her that tomorrow she get her chemo with fluids and that we will set up for her to have hydration for the rest of the week and probably even next week as well. She is trying to sip her water but has been having trouble keeping up. Asked her to go ahead and use her pain medicine as needed but also to try 1 to 2 tablespoons of honey 3-4 times a day. Signed by: Dr. Radha Mantilla 07/03/2023 2:38:52 PM
[2023-07-04 07:56] VITALS: BP 84/61; PULSE 90; RESP 22; TEMP 36.6; O2SAT 89
[2023-07-04 08:25] LABS: Basophils % 0.7 %; Eosinophils % 2.1 %; Hematocrit 28.5 % (36-47); Lymphocytes # 0.4 10^3/uL (0.8-4.8); Lymphocytes % 31.2 %; Mean Corpuscular HGB Conc 32.3 g/dL (30-55); Mean Corpuscular Hemoglobin 26.6 pg (27-33); Mean Corpuscular Volume 82.4 fl (85-98); Mean Platelet Volume 8.9 fL (7.4-10.4); Monocytes # 0.2 10^3/uL (0.2-0.9); Monocytes % 12.8 %; Neutrophils % 52.5 %; Nucleated Red Blood Cells % 0 %; Platelet Count 60 10^3/cmm (157-399); Red Blood Count 3.46 10^6/uL (3.85-5.65); Red Cell Distribution Width 15.1 % (12.1-15.1); White Blood Count 1.41 10^3/uL (3.29-11.43)
[2023-07-04 08:42] LABS: Alanine Aminotransferase 7 U/L (0-33); Albumin Level 3.5 g/dL (3.5-5.2); Alkaline Phosphatase 94 U/L (35-105); Anion Gap 15.9 (5-19); Aspartate Amino Transferase 10 U/L (0-32); Blood Urea Nitrogen 16 mg/dL (8-23); Calcium 9.1 mg/dL (8.5-10.5); Carbon Dioxide 24 mmol/L (22-29); Chloride 100 mmol/L (98-107); Creatinine Clr Calc Pharmacy 58.8052; Globulin 3.1 g/dL (1.3-4.6); Glomerular Filtration Rate 63.2 mL/min (90-130); Glucose 115 mg/dL (65-115); Osmolality Calculated 284 mOsm/kg (285-295); Potassium 3.9 mmol/L (3.5-5.1); Sodium 136 mmol/L (136-145); Total Bilirubin 0.2 mg/dL (0.15-1.2); Total Protein 6.6 g/dL (6.6-8.7)
[2023-07-04 08:44] VITALS: BP 68/49
[2023-07-04 09:12] LABS: Neutrophils # 0.74 10^3/uL (1.8-7.7)
[2023-07-04] MEDS: sodium chloride 0.9% 1,000 ML 675 ML IV (10:25)
[2023-07-04 11:45] VITALS: BP 105/64; PULSE 73; RESP 18; TEMP 36.6; O2SAT 92
[2023-07-05] MEDS: sodium chloride 0.9% 1,000 ML 999 ML IV (14:50)
[2023-07-05 14:51] VITALS: BP 91/49; PULSE 95; RESP 18; TEMP 37.3; O2SAT 94
[2023-07-06 08:59] VITALS: BP 88/57; PULSE 80; RESP 17; TEMP 35.8; O2SAT 93
[2023-07-06] MEDS: sodium chloride 0.9% 1,000 ML 999 ML IV (09:02)
[2023-07-06 10:19] VITALS: BP 97/54; PULSE 87; RESP 18; TEMP 36.2; O2SAT 96
== END 2023-07-06 23:59 | disposition home or self-care (01) ==
PROVIDERS: Nurse Practitioner Family; PCP Family Medicine; Visit Provider Radiology Radiation Oncology
DX: C34.11 Malignant neoplasm of upper lobe, right bronchus or lung (principal); Z51.0 Encounter for antineoplastic radiation therapy; Z53.9 Procedure and treatment not carried out, unspecified reason; Z79.899 Other long term (current) drug therapy
CPT/HCPCS: 77336; 77386; 80053; 85025; 96360; 99024; 99214; J7030

== ENCOUNTER 2023-07-09 14:26 | Observation (INO) | payer MEDICARE, MEDICAID, SELFPAY ==
[2023-07-09 14:33] VITALS: BP 86/63; PULSE 138; RESP 20; O2SAT 100
--- NOTE | 2023-07-09 14:43 | ECG_ITS ---
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 Measurements Intervals [place] Rate: 123 P: 0 LA: 0 QRS: 52 QRSD: 79 T: 75 QT: 317 QTc: 454 Interpretive Statements ATRIAL FIBRILLATION WITH RAPID VENTRICULAR RESPONSE Compared to ECG 06/13/2023 09:37:02 Sinus rhythm no longer present Electronically Signed On 07-10-2023 7:27:25 CDT by Jacob Harris M.D. [id number] f
--- NOTE | 2023-07-09 14:44 | XR_ITS ---
WS: [id number] XR chest 1V portable [id number] REASON FOR EXAM: dyspnea/cough FINDINGS: The left arm PICC line position is unchanged compared to 05/28/2023. Tip lies in the distal SVC. Mild tortuosity of the thoracic aorta. Normal heart size. Chronic reticular interstitial lung opacities in both lower lung santos. No change from 05/28/2023. Calcified granulomas disease in both hemithoraces. No acute pulmonary parenchymal or pleural abnormality. Bony thorax is intact with no significant focal abnormality. XR/XR chest 1V portable [id number] IMPRESSION: Stable chest without acute abnormality.
--- NOTE | 2023-07-09 14:48 | ED_ITS ---
HPI - Chest Pain 2 General: Chief Complaint: Chest Pain Stated Complaint: rapid onc Time Seen by Provider: 07/09/23 14:39 Source: patient Mode of arrival: ambulatory History of Present Illness: 59-year-old female presents emergency ro om from oncology clinic. She has a history of lung cancer while she was there she began to have irregular heart rate feel increasingly short of breath. She was directed to the emergency room. She previously had a right lung resection and portions lower and middle lobe removed. She has not had any fevers sweats or chills recently no productive cough no hemoptysis. She is undergoing chemo recently completed Daily radiation therapy last week. She did have some chest discomfort earlier when this initially started but resolved at this time MD complaint: chest pain Onset (ago): minute(s) Timing of current episode: episodic Onset: during rest Pain location: left chest Quality: tightness Relieving factors: nothing Exacerbating factors: nothing Associated symptoms: Reports palpitations; Deny abdominal pain, diaphoresis, dyspnea, fever(s), leg edema, nausea, sense of impending doom, syncope or vomiting Review of Systems 2 Const: Denies: fever(s) or diaphoresis Card: Reports: chest pain, palpitations and irregular heart rhythm; Denies: syncope Resp: Denies: dyspnea GI: Denies: abdominal pain, nausea or vomiting : Denies: dysuria, urinary frequency or urinary urgency Musc: Denies: neck pain or back pain Skin/Breast: Denies: rash PFSH ED 2 PFSH: Medical History Non-small cell lung cancer History of malignant melanoma of skin Seasonal allergies Seizure GERD (gastroesophageal reflux disease) History of breast cancer Anxiety and depression Shoulder pain Dizziness Dyslipidemia Surgical History History of melanoma excision Hx of removal of ovary Status post surgical removal of malignant neoplasm of skin History of cholecystectomy H/O carpal tunnel repair History of surgery on wrist History of lumpectomy of right breast H/O tubal ligation Family History Other CAD (coronary artery disease) Stroke Social History Smoking and tobacco/nicotine status: light tobacco/nicotine user (quit two days) cigarettes Packs smoked per day: 0.5 Years cigarettes smoked: 45 [ Other cigarette details: approx.10 cigarettes daily] Quit status (tobacco/nicotine): has tried quititng Number of times tried to quit tobacco: 3 Second hand smoke exposure: No Alcohol intake: never Substance/Drug Use: former Date of last use: years Current gender identity: Female Physical Exam 2 Const: COMMON NORMALS: healthy appearing GENERAL APPEARANCE: cooperative and comfortable NUTRITIONAL APPEARANCE: thin ORIENTATION/CONSCIOUSNESS: Y es awake, Yes oriented to person, Yes oriented to place and Yes oriented to time HENMT: COMMON NORMALS: normocephalic, atraumatic and hearing grossly normal bilaterally HEAD & SCALP: normocephalic and atraumatic Resp: COMMON NORMALS: normal respiratory effort, No retractions, No use of accessory muscles and clear to auscultation bilaterally AUSCULTATION: clear to auscultation bilaterally Cardio: COMMON NORMALS: No murmurs present (Cardio) RATE: tachycardic R HYTHM: abnormal rhythm irregularly irregular GI: COMMON NORMALS: Soft to palpation and No hepatosplenomegaly present A USCULTATION: Yes normoactive bowel sounds PALPATION: Yes Soft to palpation, No Tenderness to palpation present (GI), No Guarding due to palpation present (GI) and Yes No hepatosplenomegaly present Extremity: COMMON NORMALS: normal to inspection, capillary refill normal, no clubbing, cyanosis or edema, no calf tenderness and no pedal edema Neuro: SENSORIUM/ORIENTATION: Yes oriented to person, Yes oriented to place and Yes oriented to time Skin: COMMON NORMALS: no rashes or lesions noted GENERAL SKIN EXAM: no rashes or lesions noted Course 2 Vital Signs: Vital signs: Vital Signs Pulse Rate 138 H 07/09/23 14:33 Respiratory Rate 20 H 07/09/23 14:33 Blood Pressure 86/63 07/09/23 14:33 Pulse Oximetry 100 07/09/23 14:33 Oxygen Delivery Me thod Nasal Cannula 07/09/23 14:33 Oxygen Flow Rate 5 07/09/23 14:33 MDM - Chest Pain Medical Decision Making Patient presents in A-fib with RVR which is a new condition for her. She is also severely neutropenic, her absolute neutrophil count has decreased from last year. Her rate is not controlled on diltiazem. Discussed with Dr. Arevalo will admit. Will need to continue to monitor hemoglobin as well. Medical Records I reviewed the patient's medical records. Lab Data I reviewed the patient's lab results. 07/09/23 15:23 07/09/23 15:23 Radiology Impressions Chest X-Ray 07/09/23 14:44 IMPRESSION: Stable chest without acute abnormality. Laboratory Results WBC 2.13 10^3/uL (3.29-11.43) L 07/09/23 15:23 RBC 3.34 10^6/uL (3.85-5.65) L 07/09/23 15:23 Hgb 9.10 g/dL (11.27-16.99) L 07/09/23 15:23 Hct 28.4 % (36-47) L 07/09/23 15:23 MCV 85.0 fl (85-98) 07/09/23 15:23 MCH 27.2 pg (27-33) 07/09/23 15:23 MCHC 32.0 g/dL (30-55) 07/09/23 15:23 RDW 16.7 % (12.1-15.1) H 07/09/23 15:23 Plt Count 113 10^3/cmm (157-399) L 07/09/23 15:23 MPV 8.5 fL (7.4-10.4) 07/09/23 15:23 Neut % (Auto) 22.0 % 07/09/23 15:23 Lymph % (Auto) 39.0 % 07/09/23 15:23 Davidson % (Auto) 37.1 % 07/09/23 15:23 Eos % (Auto) 0.9 % 07/09/23 15:23 Baso % (Auto) 0.5 % 07/09/23 15:23 Neut # (Auto) 0.47 10^3/uL (1.8-7.7) L* 07/09/23 15:23 Lymph # (Auto) 0.8 10^3/uL (0.8-4.8) 07/09/23 15:23 Davidson # (Auto) 0.8 10^3/uL (0.2-0.9) 06/03/24 15:23 Eos # (Auto) 0.0 10^3/uL (0.0-0.8) 07/09/23 15:23 Baso # (Auto) 0.0 10^3/uL (0.0-0.1) 07/09/23 15:23 Nucleated RBC % (auto) 0 % 07/09/23 15:23 Nucleated RBCs # 0.0 /100WBC 07/09/23 15:23 Sodium 134 mmol/L (136-145) L 07/09/23 15:23 Potassium 3.7 mmol/L (3.5-5.1) 07/09/23 15:23 Chloride 97 mmol/L (98-107) L 07/09/23 15:23 Carbon Dioxide 26 mmol/L (22-29) 07/09/23 15:23 Anion Gap 14.7 (5-19) 07/09/23 15:23 BUN 15 mg/dL (8-23) 07/09/23 15:23 Creatinine 0.9 mg/dL (0.5-0.9) 07/09/23 15:23 GFR Calculation 63.2 mL/min (90-130) L 07/09/23 15:23 Glucose 104 mg/dL (65-115) 07/09/23 15:23 Calculated Osmolality 279 mOsm/kg (285-295) L 07/09/23 15:23 Calcium 8.5 mg/dL (8.5-10.5) 07/09/23 15:23 Total Bilirubin 0.2 mg/dL (0.15-1.2) 07/09/23 15:23 AST 9 U/L (0-32) 07/09/23 15:23 ALT 7 U/L (0-33) 07/09/23 15:23 Alkaline Phosphatase 88 U/L (35-105) 07/09/23 15:23 Troponin T Baseline 7 ng/L (0-10) 07/09/23 15:23 Total Protein 6.0 g/dL (6.6-8.7) L 07/09/23 15:23 Albumin 3.3 g/dL (3.5-5.2) L 07/09/23 15:23 Globulin 2.7 g/dL (1.3-4.6) 07/09/23 15:23 TSH 2.46 uIU/mL (0.27-4.20) 07/09/23 15:23 All radiology interpretation(s) finalized by discharge Discharge Plan Discharge Condition: Stable Prescriptions: No Action citalopram [Celexa] 40 mg tablet 40 mg PO DAILY Qty: 30 2RF ondansetron 4 mg tablet,disintegrating 4 mg translingual Q6H PRN (Reason: nausea and vomiting) Qty: 30 3RF nystatin 100,000 unit/gram cream 1 applic topical BID Qty: 30 0RF Rx Instructions: apply to corner of mouth twice a day until healed ferrous sulfate [Rohan-Time] 325 mg (65 mg iron) tablet 325 mg PO DAILY atorvastatin 20 mg tablet 20 mg PO DAILY Qty: 30 5RF Rx Instructions: PT UNABLE TO VERIFY. GOING BY HISTORY AND PHARMACY LIST. propranolol 20 mg tablet 20 mg PO BID Qty: 60 5RF Rx Instructions: PT UNABLE TO VERIFY. GOING BY HISTORY AND PHARMACY LIST. esomeprazole magnesium [Nexium] 40 mg capsule,delayed release(DR/EC) 40 mg PO BID Qty: 60 0RF Incruse Ellipta 62.5 mcg/actuation blister with device 1 inh inhalation DAILY Qty: 30 6RF prochlorperazine maleate [Compazine] 10 mg tablet 10 mg PO Q4H PRN (Reason: nausea and vomiting) Qty: 30 3RF lidocaine HCl [Lidocaine Viscous] 2 % solution 5 ml PO Q6H Qty: 100 0RF Rx Instructions: 5 mL orally every 6 hours; Mix in equal volume with 100ml of antacid and 100 ml Benadryl elixir. topiramate 25 mg tablet 25 mg PO DAILY PRN (Reason: Shortness Of Breath) aspirin 81 mg Tablet 81 mg PO DAILY albuterol sulfate 90 mcg/actuation HFA aerosol inhaler 2 puff INHALATION DIRECTED naproxen sodium [Aleve] 220 mg Tablet 440 mg PO BEDTIME azelastine 137 mcg (0.1 %) aerosol,spray 2 spray INTRANASAL BID fluticasone propionate 50 mcg/actuation spray,suspension 2 spray INTRANASAL DAILY meclizine 25 mg tablet 25 mg PO BID PRN (Reason: motion sickness) Referrals: Cheryl Avilez DO [Primary Care Provider] - Coding Level of Care Code ED Senior Clinical Data Manager for [facility]
[2023-07-09] MEDS: sodium chloride 0.9% 1,000 ML 999 ML IV ×2 (15:05→16:22)
[2023-07-09] MEDS: dilTIAZem 5 mg/mL SDV 5 mL 10 MG IVP (15:05)
[2023-07-09] MEDS: dilTIAZem 100 MG in sodium chloride 0.9% (add-van) 100 ML IV (15:09)
[2023-07-09 15:33] LABS: Basophils % 0.5 %; Eosinophils % 0.9 %; Hematocrit 28.4 % (36-47); Lymphocytes # 0.8 10^3/uL (0.8-4.8); Mean Corpuscular Hemoglobin 27.2 pg (27-33); Mean Platelet Volume 8.5 fL (7.4-10.4); Monocytes # 0.8 10^3/uL (0.2-0.9); Monocytes % 37.1 %; Nucleated Red Blood Cells % 0 %; Platelet Count 113 10^3/cmm (157-399); Red Blood Count 3.34 10^6/uL (3.85-5.65); Red Cell Distribution Width 16.7 % (12.1-15.1); White Blood Count 2.13 10^3/uL (3.29-11.43)
[2023-07-09 15:46] LABS: Neutrophils # 0.47 10^3/uL (1.8-7.7)
[2023-07-09 15:52] LABS: Troponin(5th) Baseline 7 ng/L (0-10)
[2023-07-09 16:01] LABS: Alanine Aminotransferase 7 U/L (0-33); Albumin Level 3.3 g/dL (3.5-5.2); Alkaline Phosphatase 88 U/L (35-105); Anion Gap 14.7 (5-19); Aspartate Amino Transferase 9 U/L (0-32); Blood Urea Nitrogen 15 mg/dL (8-23); Calcium 8.5 mg/dL (8.5-10.5); Carbon Dioxide 26 mmol/L (22-29); Chloride 97 mmol/L (98-107); Globulin 2.7 g/dL (1.3-4.6); Glomerular Filtration Rate 63.2 mL/min (90-130); Glucose 104 mg/dL (65-115); Osmolality Calculated 279 mOsm/kg (285-295); Potassium 3.7 mmol/L (3.5-5.1); Sodium 134 mmol/L (136-145); Thyroid Stimulating Hormone 2.46 uIU/mL (0.27-4.20); Total Bilirubin 0.2 mg/dL (0.15-1.2)
[2023-07-09 16:08] VITALS: BP 94/43; PULSE 86; O2SAT 93
--- NOTE | 2023-07-09 16:39 | P.HP_ITS ---
Providers/Chief Complaint 2 Primary Care Provider: Cheryl Avilez DO Chief Complaint: rapid onc History of Present Illness Tejal Yoo is a 62 year old female with history of lung cancer status post 5 cycles of chemotherapy, going through radiotherapy rapid response was called for palpitations chest pain and low blood pressure. Patient is stating that her normally blood pressure is between 90s, today she was at radiology clinic 1 rapid response was called, she was diagnosed with A-fib RVR she Was given Cardizem, blood pressure is still low however responding to IV fluids, she is not complaining of active chest pain, she also has neutropenia related to chemotherapy which was done few weeks ago patient is not sure if she received any Neulasta or Neupogen. At the time of evaluation patient is hemodynamically stable heart rate is in 90s, MAP 70 mmHg, no active chest pain Family at the bedside Patient is stating that she is DNR/DNI Patient normally does not use oxygen at home, no previous history of coronary disease or A-fib, has not used Eliquis before no history of GI bleed Patient is stating that if she keeps getting worse with chemo or radiotherapy she will not continue her therapy Review of Systems 2 Const: Reports: fatigue; Denies: fever(s) Eyes: Denies: change in vision ENMT: Denies: throat pain Card: Reports: palpitations Resp: Reports: dyspnea GI: Denies: abdominal pain : Denies: flank pain Medications/Allergies Home Medications Medication Instructions Recorded Confirmed Last Taken Type atorvastatin 20 mg tablet 20 mg PO DAILY #30 tabs 10/10/19 07/04/23 05/27/23 Rx propranolol 20 mg tablet 20 mg PO BID #60 tabs 10/10/19 07/04/23 05/27/23 Rx citalopram 40 mg tablet (Celexa) 40 mg PO DAILY #30 tabs 03/03/20 07/04/23 05/27/23 Rx Nexium 40 mg capsule,delayed 40 mg PO BID #60 caps 10/28/21 07/04/23 05/27/23 Rx release (esomeprazole magnesium) aspirin 81 mg tablet 81 mg PO DAILY 08/28/22 07/04/23 05/27/23 History topiramate 25 mg tablet 25 mg PO DAILY PRN Shortness Of 08/28/22 07/04/23 05/27/23 History Breath albuterol sulfate 90 mcg/actuation 2 puff inhalation DIRECTED 08/29/22 07/04/23 05/27/23 History aerosol inhaler ferrous sulfate 325 mg (65 mg 325 mg PO DAILY 09/05/22 07/04/23 05/27/23 History iron) tablet (Rohan-Time) umeclidinium 62.5 mcg/actuation 1 inh inhalation DAILY #30 ea 04/02/23 07/04/23 05/27/23 Rx blister powder for inhalation (Incruse Ellipta) azelastine 137 mcg (0.1 %) nasal 2 spray intranasal BID 05/08/23 07/04/23 05/27/23 History spray aerosol fluticasone propionate 50 2 spray intranasal DAILY 05/08/23 07/04/23 05/27/23 History mcg/actuation nasal spray,suspension meclizine 25 mg tablet 25 mg PO BID PRN motion sickness 05/08/23 07/04/23 05/27/23 History naproxen sodium 220 mg tablet 440 mg PO BEDTIME 05/08/23 07/04/23 05/27/23 History (Aleve) prochlorperazine maleate 10 mg 10 mg PO Q4H PRN nausea and 05/23/23 07/04/23 05/27/23 Rx tablet (Compazine) vomiting #30 tabs lidocaine HCl 2 % mucosal solution 5 ml PO Q6H esophagitis #100 mL 06/12/23 07/04/23 Unknown Rx (Lidocaine Viscous) ondansetron 4 mg disintegrating 4 mg translingual Q6H PRN nausea 06/13/23 07/04/23 Unknown Rx tablet and vomiting #30 tabs nystatin 100,000 unit/gram topical 1 applic topical BID #30 grams 06/20/23 07/04/23 Unknown Rx cream Allergies Allergy/AdvReac Type Severity Reaction Status Date / Time codeine Allergy Unknown Verified 07/04/23 09:35 morphine Allergy Unknown Verified 07/04/23 09:35 hydrocodone AdvReac Mild make me Verified 07/04/23 09:35 sick PFSH Acute 2 PFSH: Medical History Non-small cell lung cancer History of malignant melanoma of skin Seasonal allergies Seizure GERD (gastroesophageal reflux disease) History of breast cancer Anxiety and depression Shoulder pain Dizziness Dyslipidemia Surgical History History of melanoma excision Hx of removal of ovary Status post surgical removal of malignant neoplasm of skin History of cholecystectomy H/O carpal tunnel repair History of surgery on wrist History of lumpectomy of right breast H/O tubal ligation Family History Other CAD (coronary artery disease) Stroke Social History Smoking and tobacco/nicotine status: light tobacco/nicotine user (quit two days) cigarettes Packs smoked per day: 0.5 Years cigarettes smoked: 45 [ Other cigarette details: approx.10 cigarettes daily] Quit status (tobacco/nicotine): has tried quititng Number of times tried to quit tobacco: 3 Second hand smoke exposure: No Alcohol intake: never Substance/Drug Use: former Date of last use: years Current gender identity: Female Vitals/I&O/Wt Last Vital Signs Pulse 138 H 07/09/23 14:33 Resp 20 H 07/09/23 14:33 BP 86/63 07/09/23 14:33 Pulse Ox 100 07/09/23 14:33 O2 Del Method Nasal Cannula 07/09/23 14:33 O2 Flow Rate 5 07/09/23 14:33 Physical Exam 2 Narrative: Patient sitting comfortably Currently on 2 L A-fib without RVR MAP 70 mmHg No active chest pain Slightly dehydrated Sarcopenia Significant hair loss Pleasant cooperative Nonfocal neuroexam S1, S2 variable secondary to A-fib Data 07/09/23 15:23 07/09/23 15:23 A&P Assessment and plan (1) Generalized anxiety disorder: (2) Methamphetamine abuse in remission: (3) Cannabis abuse, in remission: (4) Chest pain: (5) GERD (gastroesophageal reflux disease): Qualifiers: Esophagitis presence: esophagitis presence not specified Qualified Code(s): K21.9 - Gastro-esophageal reflux disease without esophagitis (6) History of radiation therapy: (7) Chronic migraine without aura, intractable, with status migrainosus: (8) COPD (chronic obstructive pulmonary disease): Qualifiers: COPD type: emphysema Emphysema type: panlobular Qualified Code(s): J 43.1 - Panlobular emphysema (9) Hilar mass: (10) New onset a-fib: (11) Neutropenia: Plan Review of records from oncology Ms. Yoo is a pleasant 59-year-old female with biopsy-proven squamous cell carcinoma of the right upper lobe Stage IA [id number] s/p right robotic thoracoscopic right upper and right middle lobe lobectomy with mediastinal and hilar lymph node dissection by Dr. Stoddard in [facility]. Pathology showed grade 3 invasive squamous cell carcinoma nonkeratinizing, 4.8 cm with negative margins. Lymphovascular invasion and visceral pleura invasion present.Final staging stage IIA [id number], staging of stage IIa, high risk feature includes grade 3, visceropleural involvement and lymphovascular invasion. New onset A-fib I will switch patient to amiodarone Start patient on Eliquis Request D-dimer echo keep magnesium above 2 potassium of 4 Lung cancer currently going through radiotherapy Neutropenia without fever I will cover W antipseudomonal antibiotics for now empirically Patient has a left-sided PICC line in place Hypotension responding to IV fluids Hold off on propranolol Acute hypoxia: Patient has history of COPD and lung mass, currently on 2 L DNR/DNI goals of care discussed with the patient in front of her family Cardiac diet Request echo Attestations 2 Medical Necessity Statement*: Anticipating more than 2 midnights for management of neutropenia and A-fib RVR Diagnoses Generalized anxiety disorder F41.1 Methamphetamine abuse in remission F15.11 Cannabis abuse, in remission F12.11 Chest pain R07.9 Gastroesophageal reflux disease, esophagitis presence not specified K21.9 Esophagitis presence: esophagitis presence not specified History of radiation therapy Z92.3 Chronic migraine without aura, intractable, with status migrainosus G43.711 Panlobular emphysema J43.1 COPD type: emphysema Emphysema type: panlobular Hilar mass R91.8 New onset a-fib I48.91 Neutropenia D70.9
--- NOTE | 2023-07-09 16:43 | ECG_ITS ---
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 Measurements Intervals [place] Rate: 81 P: 0 OK: 0 QRS: 11 QRSD: 86 T: -6 QT: 385 QTc: 448 Interpretive Statements ATRIAL FIBRILLATION Compared to ECG 07/09/2023 14:38:52 No significant changes Electronically Signed On 07-10-2023 7:32:21 CDT by Jacob Harris M.D. [id number]
[2023-07-09 17:00] VITALS: BP 95/58; PULSE 100; O2SAT 100
[2023-07-09 17:03] LABS: Add Urine Microscopic? YES; Bilirubin Urine 1+ (Negative); Blood Urine 2+ (Negative); Glucose Urine UA Norm (Normal); Ketones Urine 1+ (Negative); Leukocyte Esterase Urine Trace (Negative); Nitrate Urine Negative (Negative); Protein Urine Trace (Negative); Specific Gravity, Urine 1.015 (1.005-1.030); Urine Appearance Slightly Cloudy (CLEAR); Urine Color Yellow (Yellow); Urobilinogen Urine 1 mg/dL (Negative); pH Urine 5 (5-7)
[2023-07-09 17:04] LABS: Bacteria Urine 1+ /hpf; Hyaline Casts Urine 0-4 /lpf; Mucus Urine 1+ /hpf; WBC Urine 0-4 /hpf (0-5)
[2023-07-09 17:05] LABS: Add Urine Culture? No
--- NOTE | 2023-07-09 17:31 | USCV_ITS ---
Yoo Tejal Age: 62 Gender: F : 1960 Exam Date: 07/09/2023 20:36 Ordering Phys: Kirti Dutton MD Technologist: MARLON [place]am [place] [facility] [place] Indication: SOB, atrial fibrillation, history of lung CA s/p RT lobectomies, now undergoing chemotherapy. evaluate for possible CHF BP: 95 / 58 HR: 90 Rhythm: Atrial fibrillation Technical Quality: Adequate MEASUREMENTS (Male / Female) Normal Values 2D ECHO LV Diastolic Diameter PLAX 3.7 cm 4.2 - 5.9 / 3.9 - 5.3 cm IVS Diastolic Thickness 1.1 cm 0.6 - 1.0 / 0.6 - 0.9 cm IVS Systolic Thickness 1.4 cm LVPW Diastolic Thickness 1.1 cm 0.6 - 1.0 / 0.6 - 0.9 cm LVPW Systolic Thickness 1.4 cm LVOT Diameter 2.0 cm LV Ejection Fraction 2D Teich 56.0 % LV Ejection Fraction MOD 2C 71.1 % LV Ejection Fraction 2C AL 76.3 % LA Diameter 3.2 cm LA Sys Volume AL 36.7 cm cubed LA Sys Volume Index AL 21.1 cm cubed/m squared Aorta at Sinotubular Diameter 3.0 cm IVC Diameter 1.1 cm M-MODE LA Ao Ratio MM 1.4 AV Cusp Separation MM 1.2 cm DOPPLER AV Peak Velocity 131.0 cm/s LVOT Peak Velocity 64.0 cm/s AV Area Cont Eq vti 1.5 cm squared AV Area Cont Eq pk 1.5 cm squared MV Peak Velocity 100.0 cm/s MV Area PHT 2.8 cm squared Mitral E to A Ratio 0.0 TV Peak E Velocity 62.0 cm/s PV Peak Velocity 102.0 cm/s FINDINGS Left Ventricle Left ventricle is normal in size. LV systolic function is normal with EF of 50 to 55%. No regional wall motion abnormalities are seen. Diastolic function is indeterminate because of atrial fibrillation. Right Ventricle Normal in size and function Right Atrium Normal in size Left Atrium Normal in size Mitral Valve Structurally normal mitral valve. Trace mitral regurgitation Aortic Valve Structurally normal aortic valve. No significant stenosis or regurgitation. Tricuspid Valve Insufficient TR jet to calculate RVSP Pulmonic Valve Not well visualized Pericardium Normal Aorta Normal in size IVC Appears to be normal CONCLUSIONS LV systolic function is normal with EF of 50-55% Diastolic function is indeterminate because of atrial fibrillation Trace mitral regurgitation Compared to prior echocardiogram from 2019, LV systolic function appears to be slightly decreased but still normal. Jacob Harris MD (Electronically Signed) Final Date: 10 July 2023 07:58 S
--- NOTE | 2023-07-09 17:53 | CTR_ITS ---
PROCEDURE INFORMATION: Exam: CTA Chest With Contrast Exam date and time: 07/10/2023 12:44 AM Age: 62 years old Clinical indication: Other: Afib; Prior surgery; Surgery date: 6+ months; Surgery type: Lumpectomy; Patient HX: HX breast and lung CA TECHNIQUE: Imaging protocol: Computed tomographic angiography of the chest with contrast. Exam focused on the arteries. 3D rendering (Not supervised by radiologist): MIP and/or 3D reconstructed images were created by the technologist. Radiation optimization: All CT scans at this facility use at least one of these dose optimization techniques: automated exposure control; mA and/or kV adjustment per patient size (includes targeted exams where dose is matched to clinical indication); or iterative reconstruction. Contrast material: OMNI 350; Contrast volume: 45 ml; Contrast route: INTRAVENOUS (IV); COMPARISON: CT chest janetpel w/*[id number] 05/06/2023 11:11 RADIATION DOSE METRICS: Total DLP (mGy-cm): 255 FINDINGS: Tubes, catheters and devices: There is a left PICC with its tip in the superior vena cava. Pulmonary arteries: There is no evidence of pulmonary embolus in the large central and segmental pulmonary arteries. Evaluation of the subsegmental and peripheral branches is limited by motion artifact and technical factors. Aorta: There is no thoracic aortic aneurysm or dissection. There is mild scattered atherosclerotic calcification throughout the thoracic aorta. Lungs: Status post right lobectomy. Centrilobular emphysema. No consolidation. Severe narrowing of the right mainstem bronchus and hilar branches moderate narrowing of the left mainstem bronchus and hilar branches (coronal images 39 - 47 of series 10). Pleural spaces: Unremarkable. No pneumothorax. No pleural effusion. Heart: The heart is normal in size. There are no pericardial fluid collections. Mediastinal space: The previously described necrotic right hilar and mediastinal masslike decrease in size in the interim, now measuring 4 x 3.6 x 4.5 cm on axial image 25 of series 6 and coronal image 54 series 10. However, there continues to be encasement and narrowing of the right pulmonary artery and is hilar branches without occlusion or thrombosis. This shows mild progression since the comparison examination. Rim enhancement of the mass is no longer demonstrated. Lymph nodes: A large necrotic right mediastinal and hilar mass as described above. Diaphragm: A small hiatal hernia. Bones/joints: No acute fracture is seen. Soft tissues: Unremarkable. Other findings: No acute findings in the included upper abdomen.There has been a cholecystectomy. CT/CT angio chest PE protcl [id number] IMPRESSION: 1. No evidence of pulmonary embolus in the visualized large central and segmental pulmonary arteries. Motion artifact and technical factors limit evaluation of the subsegmental and peripheral branches. 2. Interim decrease in size of the large right hilar mediastinal necrotic mass, with persistent, mild progression of encasement of the right pulmonary artery without occlusion or thrombosis. 3. Severe narrowing of the right mainstem bronchus and hilar branches moderate narrowing of the left mainstem bronchus and hilar branches. Bilateral bronchial narrowing has worsened since the comparison examination. COMMENTS: The presence of pulmonary emphysema on CT is an independent risk factor for lung cancer. In the absence of a history or active diagnosis of lung cancer, it is recommended that this patient with emphysema be evaluated for enrollment in a low dose CT lung cancer screening program.
[2023-07-09 17:58] VITALS: PULSE 85; RESP 16; O2SAT 100
[2023-07-09 18:19] LABS: Procalcitonin 0.09 ng/mL (0-0.5)
[2023-07-09] MEDS: sodium chloride 0.9% 1,000 ML 50 ML IV (18:20)
[2023-07-09] MEDS: cefepime 2,000 MG in sodium chloride 0.9% (plus) 50 ML 100 MG IV (18:22)
[2023-07-09] MEDS: enoxaparin 80 mg/0.8 mL Syringe 70 MG SUBCUT (18:30)
[2023-07-09 19:10] LABS: Troponin 5 2HR 7.09 ng/L (0-10); Troponin 5 2HR Delta 0.09 ABS# (0-10)
[2023-07-09] MEDS: filgrastim-sndz 480 mcg/0.8 mL Syringe SUBCUT (20:26)
--- NOTE | 2023-07-09 20:43 | ECG_ITS ---
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 Measurements Intervals [place] Rate: 95 P: 0 DC: 0 QRS: 54 QRSD: 85 T: 69 QT: 361 QTc: 455 Interpretive Statements ATRIAL FIBRILLATION Compared to ECG 07/09/2023 17:41:08 No significant changes Electronically Signed On 07-10-2023 7:29:49 CDT by Jacob Harris M.D. [email or web address] care [email or web address] Pharmaceuticalsmiddletown hospitalAhonya/[id number]
[2023-07-09 20:48] VITALS: BP 107/68; PULSE 101; RESP 19; TEMP 36.9; O2SAT 96
[2023-07-09 22:04] LABS: Troponin 5 6HR 6.48 ng/L (0-10)
[2023-07-09 22:09] LABS: Troponin 5 6HR Delta -0.52 ng/L (0-12)
[2023-07-10] VITALS (8 sets, daily range): BP systolic 94–123; BP diastolic 59–67; PULSE 81–117; RESP 18–25; TEMP 36.6–36.9; O2SAT 95–99
[2023-07-10] MEDS: iohexol 350 mg/mL 500 mL Btl (per mL) IV (00:52)
[2023-07-10 04:13] LABS: Basophils % 0.4 %; Eosinophils % 0.8 %; Hematocrit 26.5 % (36-47); Lymphocytes # 0.5 10^3/uL (0.8-4.8); Lymphocytes % 18.9 %; Mean Corpuscular HGB Conc 30.6 g/dL (30-55); Mean Corpuscular Hemoglobin 26.6 pg (27-33); Mean Corpuscular Volume 87.2 fl (85-98); Mean Platelet Volume 9.2 fL (7.4-10.4); Monocytes # 0.7 10^3/uL (0.2-0.9); Monocytes % 30.5 %; Neutrophils # 1.16 10^3/uL (1.8-7.7); Neutrophils % 47.8 %; Nucleated Red Blood Cells % 0 %; Platelet Count 101 10^3/cmm (157-399); Red Blood Count 3.04 10^6/uL (3.85-5.65); Red Cell Distribution Width 17.2 % (12.1-15.1); White Blood Count 2.43 10^3/uL (3.29-11.43)
[2023-07-10 04:34] LABS: Anion Gap 13.9 (5-19); Blood Urea Nitrogen 10 mg/dL (8-23); C Reactive Protein 22.2 mg/L (0.0-4.9); Calcium 8.4 mg/dL (8.5-10.5); Carbon Dioxide 25 mmol/L (22-29); Chloride 104 mmol/L (98-107); Creatinine Clr Calc Pharmacy 89.9671; Glucose 123 mg/dL (65-115); Osmolality Calculated 288 mOsm/kg (285-295); Phosphorus 3.8 mg/dL (2.5-4.5); Potassium 3.9 mmol/L (3.5-5.1); Sodium 139 mmol/L (136-145)
[2023-07-10] MEDS: enoxaparin 80 mg/0.8 mL Syringe 70 MG SUBCUT (05:58)
[2023-07-10] MEDS: fluticasone nasal spray 16gm Btl 2 SPRAY INTRANASAL (05:58)
[2023-07-10] MEDS: cefepime 2,000 MG in sodium chloride 0.9% (plus) 50 ML 100 MG IV (05:59)
--- NOTE | 2023-07-10 09:56 | PC.CHAP ---
Pastoral Care Encounter/Spiritual Assessment Type of Contact [] Declined backhoe operator visit [] Patient/Family/Request visit [] Outpatient visit [] Follow-up visit [] Physician referral [] Code/Alert [] Routine visit [] Staff referral [] Actively dying [] Patient sleeping [] Family support [] [] Out of room [] Palliative care [] [] Receiving care in room [] Pre-surgical visit [] Trauma [] Long length of stay [] ICU visit [x] Other:Contact precautions. No visit. Relational/Emotional Strength [] Patient feels connected with others/family/visitors/staff [] Distress [] Loneliness/isolation [] Abandonment Spirituality of Patient [] Person of Ayana [] Attends Holiness of their Ayana [] Believes in Prayer [] Reads Bible or Yazdanism materials [] There are Spiritual issues to be addressed Sound Ranging Crewmember Interventions [] Prayer [] Active listening [] Non-anxious presence [] Spiritual/emotional support [] Crisis/trauma care [] Spiritual counseling [] Bereavement support [] Provided bereavement packet [] Provided Bible/devotional materials [] Provided toy/stuffed animal, coloring book to patient or family member [] Provided Communion [] Anointing/[place] [] Salvation [] Completed spiritual assessment [] Other: Impact on Illness or Injury [] Angry [] Fearful [] Anxious [] Often cries [] Exhaustion [] Unable to work [] Unable to attend religion [] Unable to walk/stand [] Unable to read [] Unable to drive [] Unable to eat/drink [] Unable to sleep [] Unable to be with family [] Patient intubated [] Other: Summary Time spent with patient
--- NOTE | 2023-07-10 10:47 | P.DS_ITS ---
Discharge Providers Date of Admission: 07/09/23 17:31 Date of Discharge: July 10, 2023 Attending Provider at Admission: Ros Arevalo MD Attending Provider at Discharge: Kirti Dutton MD Primary Care Provider: Cheryl Avilez DO Diagnoses at Discharge Discharge Diagnosis (1) Generalized anxiety disorder: Status: Acute (2) Methamphetamine abuse in remission: Status: Acute (3) Cannabis abuse, in remission: Status: Acute (4) Chest pain: Status: Acute (5) GERD (gastroesophageal reflux disease): Status: Chronic Qualifiers: Esophagitis presence: esophagitis presence not specified Qualified Code(s): K21.9 - Gastro-esophageal reflux disease without esophagitis (6) History of radiation therapy: Status: Acute (7) Chronic migraine without aura, intractable, with status migrainosus: Status: Acute (8) COPD (chronic obstructive pulmonary disease): Status: Acute Qualifiers: COPD type: emphysema Emphysema type: panlobular Qualified Code(s): J43.1 - Panlobular emphysema (9) Hilar mass: Status: Acute (10) New onset a-fib: Status: Acute (11) Neutropenia: Status: Acute Reason for Visit Reason for Visit: rapid onc Hospital Course Hospital Course 62-year female who was admitted for management and evaluation after a rapid response at the radiology clinic, patient was diagnosed with A-fib RVR and hypotension, patient stating that her blood pressure always stays in the 90s, she did not experience any symptoms other than palpitations, she received Cardizem that improved her heart rate, secondary to low blood pressure we started on amiodarone drip, patient converted to sinus rhythm spontaneously, considering high Vineet Vascor 1 for sex, I will discharge patient on amiodarone, will keep her on high-dose aspirin she does not need anticoagulating agent at this point For her neutropenia she was put on cefepime however she remained afebrile, she was given 1 dose of Neulasta 480mcg Patient has another radiotherapy session at 2:15 PM and wanted to be discharged, she has converted to sinus rhythm I will prescribe her amiodarone after turning off the drip and prescribe high-dose aspirin. Physical Exam Narrative: Patient awake alert Sinus rhythm GCS 15 Nonfocal neuroexam Abdomen soft Pleasant cooperative Discharge Data Studies Completed and Pending Completed Studies During Hospitalization Category Date Time Status CTA PE [CT angio chest PE protcl [id number]] Stat Cat Scan 07/09/23 17:53 Completed XR chest 1V portable [id number] Stat Exams 07/09/23 14:44 Completed CV. echo complete* [id number] Routine Ultrasound 07/09/23 17:31 Completed Radiology Impressions Chest X-Ray 07/09/23 14:44 IMPRESSION: Stable chest without acute abnormality. Chest CTA 07/09/23 17:53 IMPRESSION: 1. No evidence of pulmonary embolus in the visualized large central and segmental pulmonary arteries. Motion artifact and technical factors limit evaluation of the subsegmental and peripheral branches. 2. Interim decrease in size of the large right hilar mediastinal necrotic mass, with persistent, mild progression of encasement of the right pulmonary artery without occlusion or thrombosis. 3. Severe narrowing of the right mainstem bronchus and hilar branches moderate narrowing of the left mainstem bronchus and hilar branches. Bilateral bronchial narrowing has worsened since the comparison examination. COMMENTS: The presence of pulmonary emphysema on CT is an independent risk factor for lung cancer. In the absence of a history or active diagnosis of lung cancer, it is recommended that this patient with emphysema be evaluated for enrollment in a low dose CT lung cancer screening program. ADDENDUM: 07/10/23 0411 Findings were discussed with Dr. Beck at 07/10/2023 4:10 AM CDT. Laboratory Results WBC 2.43 10^3/uL (3.29-11.43) L 07/10/23 03:19 RBC 3.04 10^6/uL (3.85-5.65) L 07/10/23 03:19 Hgb 8.10 g/dL (11.27-16.99) L 07/10/23 03:19 Hct 26.5 % (36-47) L 07/10/23 03:19 MCV 87.2 fl (85-98) 07/10/23 03:19 MCH 26.6 pg (27-33) L 07/10/23 03:19 MCHC 30.6 g/dL (30-55) 07/10/23 03:19 RDW 17.2 % (12.1-15.1) H 07/10/23 03:19 Plt Count 101 10^3/cmm (157-399) L 07/10/23 03:19 MPV 9.2 fL (7.4-10.4) 07/10/23 03:19 Neut % (Auto) 47.8 % 07/10/23 03:19 Lymph % (Auto) 18.9 % 07/10/23 03:19 [place] % (Auto) 30.5 % 07/10/23 03:19 Eos % (Auto) 0.8 % 07/10/23 03:19 Baso % (Auto) 0.4 % 07/10/23 03:19 Neut # (Auto) 1.16 10^3/uL (1.8-7.7) L 07/10/23 03:19 Lymph # (Auto) 0.5 10^3/uL (0.8-4.8) L 07/10/23 03:19 [place] # (Auto) 0.7 10^3/uL (0.2-0.9) 07/10/23 03:19 Eos # (Auto) 0.0 10^3/uL (0.0-0.8) 07/10/23 03:19 Baso # (Auto) 0.0 10^3/uL (0.0-0.1) 07/10/23 03:19 Nucleated RBC % (auto) 0 % 07/10/23 03:19 Nucleated RBCs # 0.0 /100WBC 07/10/23 03:19 Sodium 139 mmol/L (136-145) 07/10/23 03:19 Potassium 3.9 mmol/L (3.5-5.1) 07/10/23 03:19 Chloride 104 mmol/L (98-107) 07/10/23 03:19 Carbon Dioxide 25 mmol/L (22-29) 07/10/23 03:19 Anion Gap 13.9 (5-19) 07/10/23 03:19 BUN 10 mg/dL (8-23) 07/10/23 03:19 Creatinine 0.6 mg/dL (0.5-0.9) 07/10/23 03:19 GFR Calculation 101.0 mL/min (90-130) 07/10/23 03:19 Glucose 123 mg/dL (65-115) H 07/10/23 03:19 Calculated Osmolality 288 mOsm/kg (285-295) 07/10/23 03:19 Calcium 8.4 mg/dL (8.5-10.5) L 07/10/23 03:19 Phosphorus 3.8 mg/dL (2.5-4.5) 07/10/23 03:19 Magnesium 1.0 mg/dL (1.7-2.3) L 07/10/23 03:19 Total Bilirubin 0.2 mg/dL (0.15-1.2) 07/09/23 15:23 AST 9 U/L (0-32) 07/09/23 15:23 ALT 7 U/L (0-33) 07/09/23 15:23 Alkaline Phosphatase 88 U/L (35-105) 07/09/23 15:23 Troponin T Baseline 7 ng/L (0-10) 07/09/23 15:23 Troponin T 120 Minute 7.09 ng/L (0-10) 07/09/23 18:31 Delta Troponin T 0.09 ABS# (0-10) 07/09/23 18:31 Troponin T Hi Sens 6Hr 6.48 ng/L (0-10) 07/09/23 21:36 Troponin T Hi Sens 6Hr Delta -0.52 ng/L (0-12) L 07/09/23 21:36 C-Reactive Protein 22.2 mg/L (0.0-4.9) H 07/10/23 03:19 Total Protein 6.0 g/dL (6.6-8.7) L 07/09/23 15:23 Albumin 3.3 g/dL (3.5-5.2) L 07/09/23 15:23 Globulin 2.7 g/dL (1.3-4.6) 07/09/23 15:23 Procalcitonin 0.09 ng/mL (0-0.5) 07/09/23 15:23 TSH 2.46 uIU/mL (0.27-4.20) 07/09/23 15:23 Urine Color Yellow (Yellow) 07/09/23 16:20 Urine Appearance Slightly cloudy (CLEAR) 07/09/23 16:20 Urine pH 5 (5-7) 07/09/23 16:20 Ur Specific [place] 1.015 (1.005-1.030) 07/09/23 16:20 Urine Protein Trace (Negative) 07/09/23 16:20 Urine Glucose (UA) Norm (Normal) 07/09/23 16:20 Urine Ketones 1+ (Negative) H 07/09/23 16:20 Urine Blood 2+ (Negative) H 07/09/23 16:20 Urine Nitrate Negative (Negative) 07/09/23 16:20 Urine Bilirubin 1+ (Negative) H 07/09/23 16:20 Urine Urobilinogen 1 mg/dL (Negative) H 07/09/23 16:20 Ur Leukocyte Esterase Trace (Negative) H 07/09/23 16:20 Urine RBC 5-10 /hpf (0-2) H 07/09/23 16:20 Urine WBC 0-4 /hpf (0-5) H 07/09/23 16:20 Ur Squamous Epith Cells 5-10 /hpf (0-5) H 07/09/23 16:20 Amorphous Sediment Not Reportable 07/09/23 16:20 Urine Bacteria 1+ /hpf (NONE) H 07/09/23 16:20 Hyaline Casts 0-4 /lpf H 07/09/23 16:20 Urine Mucus 1+ /hpf 07/09/23 16:20 Vitals Last Vital Signs Temp 98.0 F 07/10/23 08:00 Pulse 83 07/10/23 08:00 Resp 22 H 07/10/23 08:00 BP 95/67 07/10/23 08:00 Pulse Ox 95 07/10/23 08:00 O2 Del Method Room Air 07/10/23 08:00 O2 Flow Rate 3 07/09/23 17:58 Discharge Plan Discharge Patient Disposition: Home Condition: Stable Prescriptions: New amiodarone 200 mg tablet 200 mg PO DAILY Qty: 30 4RF Continued ondansetron 4 mg tablet,disintegrating 4 mg translingual Q6H PRN (Reason: nausea and vomiting) Qty: 30 3RF nystatin 100,000 unit/gram cream 1 applic topical BID Qty: 30 0RF Rx Instructions: apply to corner of mouth twice a day until healed prochlorperazine maleate [Compazine] 10 mg tablet 10 mg PO Q4H PRN (Reason: nausea and vomiting) Qty: 30 3RF lidocaine HCl [Lidocaine Viscous] 2 % solution 5 ml PO Q6H Qty: 100 0RF Rx Instructions: 5 mL orally every 6 hours; Mix in equal volume with 100ml of antacid and 100 ml Benadryl elixir. topiramate 25 mg tablet 25 mg PO DAILY PRN (Reason: Shortness Of Breath) albuterol sulfate 90 mcg/actuation HFA aerosol inhaler 2 puff INHALATION DIRECTED esomeprazole magnesium 40 mg capsule,delayed release(DR/EC) 40 mg PO BID citalopram [Celexa] 40 mg tablet 20 mg PO QPM atorvastatin 20 mg tablet 20 mg PO QPM Incruse Ellipta 62.5 mcg/actuation blister with device 1 inh inhalation QAM azelastine 137 mcg (0.1 %) aerosol,spray 2 spray INTRANASAL BID fluticasone propionate 50 mcg/actuation spray,suspension 2 spray INTRANASAL QAM meclizine 25 mg tablet 25 mg PO BID PRN (Reason: motion sickness) Changed aspirin 81 mg Tablet,Delayed Release (Dr/Ec) 324 mg PO QPM Qty: 90 2RF Held propranolol 20 mg tablet 20 mg PO BID Qty: 60 5RF Hold Instructions: Resume on 07/17/23. Discontinued naproxen sodium [Aleve] 220 mg Tablet 440 mg PO BID Discharge Orders: Discharge Order (Routine); Ordered 07/10/23 Ordered By: Kirti Dutton Referrals: Cheryl Avilez DO [Primary Care Provider] - Patient Instructions: Opioid Safety Discharge Attestations Time Spent in Discharge Care*: greater than 30 min Quality Metrics Clinical Quality Measures [ No reported AMI, CVA or VTE this stay] Coding Level of Care Code Acute Code for [facility] Fwd Diagnoses Generalized anxiety disorder F41.1 Methamphetamine abuse in remission F15.11 Cannabis abuse, in remission F12.11 Chest pain R07.9 Gastroesophageal reflux disease, esophagitis presence not specified K21.9 Esophagitis presence: esophagitis presence not specified History of radiation therapy Z92.3 Chronic migraine without aura, intractable, with status migrainosus G43.711 Panlobular emphysema J43.1 COPD type: emphysema Emphysema type: panlobular Hilar mass R91.8 New onset a-fib I48.91 Neutropenia D70.9
[2023-07-10] MEDS: sennosides-docusate Tablet 1 TAB PO (11:40)
[2023-07-10] MEDS: pantoprazole DR 40 mg Tablet PO (11:40)
[2023-07-10] MEDS: aspirin 81 mg EC Tablet PO (11:41)
[2023-07-10] MEDS: nystatin cream 30 gm 1 APPLIC TOPICAL (11:41)
[2023-07-10] MEDS: potassium chloride ER 20 mEq Tablet 40 MEQ PO (11:41)
--- NOTE | 2023-07-10 12:48 | PC.NURSE ---
Discharge Note Patient discharged to [Oncology dept for radiation treatment] via [w/c] accompanied by [her niece]. Discharge instructions reviewed with patient and/or circulation sales representative. Mobile pharmacy medications and/or prescriptions provided. Belongings/home medications returned.
== END 2023-07-10 12:48 | disposition home or self-care (01) ==
LOC: ER 14:54 → CSU 17:31
PROVIDERS: Admitting Provider Internal Medicine; Emergency Provider Family Medicine; PCP Family Medicine; Visit Provider Internal Medicine
DX: I48.91 Unspecified atrial fibrillation (principal); D70.9 Neutropenia, unspecified; R91.8 Other nonspecific abnormal finding of lung field; J43.1 Panlobular emphysema; G43.711 Chronic migraine without aura, intractable, with status migrainosus; Z92.3 Personal history of irradiation; K21.9 Gastro-esophageal reflux disease without esophagitis; R07.9 Chest pain, unspecified; F12.11 Cannabis abuse, in remission; F15.11 Other stimulant abuse, in remission; F41.1 Generalized anxiety disorder; I95.9 Hypotension, unspecified; Z66 Do not resuscitate; Z79.82 Long term (current) use of aspirin; Z85.828 Personal history of other malignant neoplasm of skin; E78.5 Hyperlipidemia, unspecified; F17.210 Nicotine dependence, cigarettes, uncomplicated; C34.11 Malignant neoplasm of upper lobe, right bronchus or lung; Z95.828 Presence of other vascular implants and grafts; R09.02 Hypoxemia; Z99.81 Dependence on supplemental oxygen
CPT/HCPCS: 36415; 36592; 71045; 71275; 80048; 80053; 81001; 83735; 84100; 84145; 84443; 84484; 85025; 86140; 93005; 93306; 96365; 96372; 96375; 96376; 99285; A4222; G0378; J0283; J0692; J1650; J3490; J7030; Q5101; Q9967

== ENCOUNTER 2023-07-25 10:15 | Oncology outpatient (recurring) (ONCR) | payer MEDICARE, MEDICAID, SELFPAY ==
[2023-07-09 13:51] VITALS: BP 94/59; PULSE 71; TEMP 36.3; O2SAT 90
[2023-07-09] MEDS: sodium chloride 0.9% 1,000 ML 999 ML IV (14:08)
--- NOTE | 2023-07-09 16:24 | PC.NURSE ---
Pt in infusion room after radiation for hydration. Pt stated she is feeling dizzy when coughing and has had this issue for at least a couple weeks. Pts BP 94/59, HR 71, Temp 97.3, O2 84%. Pt does not wear oxygen. Pt suddenly began to get short of breath with difficulty breathing. Pt also stated she was having intense chest pain. Dr. Babin and Vidhi Linder, TILE SETTER notified at approx. 1410 and rapid was called. Vitals remained in the same range. Pt was taken to ED for evaluation at approx 1424 by rapid response team.
--- NOTE | 2023-07-10 14:25 | ONCRAD TMN_ITS ---
Radiation Oncology Weekly Treatment Management Patient: Fredo Haq MR#: [id number] : 1960> Attending Physician: Dr. Radha Mantilla Date of Service: 07/10/2023 Fractions: 29 out of 30 Referring Physician(s) : Diagnosis: C34.91 - Malignant neoplasm of unspecified part of right bronchus or lung, Diagnosed 05/22/2023 (Active) Radiotherapy to date: Course: R latoya/mediastin, Treatment Site: R latoya/mediastinum, Ref. ID: [id number], Energy: 6X, Dose/Fx (cGy): 200, #Fx: 29 / 30, Dose Correction (cGy): 0, Total Dose Delivered (cGy): 5,800, Start Date: 05/30/2023, Elapsed Days: 41 Reason for visit: The patient is being seen today as part of their regularly scheduled weekly on treatment visits to assess for acute toxicities from radiotherapy. Review of Systems: Patient is feeling better today. She was hospitalized yesterday when she went to [facility]. She was cleared earlier today and discharge. Vital Signs: Performed on 07/10/2023 2:06 PM BMI - 25.095 kg/m2 (high), Height - 64 in, Weight - 146.2 lbs, Temperature - 98 f, Pulse - 81 /min, Respiration - 18 /min, O2 Sat - 95 % (low), Pain - 0, Fatigue - 0 and BP - 95/ 67 mm(hg). Physical Exam: No changes on exam Imaging: Radiation therapy imaging related to accurate target localization (i.e. KV, MV and CBCT) was reviewed. Appropriate changes, if any, were made to ensure treatment accuracy. Plan: Will continue with her treatments. She will be finished tomorrow. Signed by: Dr. Radha Mantilla 07/10/2023 2:24:19 PM
[2023-07-11 15:00] VITALS: BP 96/59; PULSE 99; RESP 18; TEMP 36.4; O2SAT 98
[2023-07-11] MEDS: sodium chloride 0.9% 1,000 ML 999 ML IV (15:04)
--- NOTE | 2023-07-16 14:00 | CTR_ITS ---
PROCEDURE INFORMATION: Exam: CT Chest With Contrast; Diagnostic Exam date and time: 07/16/2023 2:03 PM Age: 62 years old Clinical indication: Condition or disease; Lung condition and disease; Cancer of the lung; Unspecified; Primary cancer: Lung cancer, right breast; Prior surgery; Surgery date: 6+ months; Surgery type: Right lung 10/2022; Additional info: Restaging TECHNIQUE: Imaging protocol: Diagnostic computed tomography of the chest with contrast. Radiation optimization: All CT scans at this facility use at least one of these dose optimization techniques: automated exposure control; mA and/or kV adjustment per patient size (includes targeted exams where dose is matched to clinical indication); or iterative reconstruction. Contrast material: OMNI 350; Contrast volume: 80 ml; Contrast route: INTRAVENOUS (IV); COMPARISON: CT angio chest PE protcl [id number] 07/10/2023 12:44 AM RADIATION DOSE METRICS: Total DLP (mGy-cm): 259.96 FINDINGS: Thyroid: No significant thyroid pathology. Lungs: Severe pulmonary emphysema with areas of interstitial reticulation and pulmonary scarring again seen. Calcified pulmonary granulomata are present. Pleural spaces: Unremarkable. No pneumothorax. No pleural effusion. Heart: See Mediastinal space finding. Coronary arteries: No coronary artery calcification evident. Mediastinal space: Prior right upper lobectomy. A large right hilar/mediastinal mass is again seen. Although measurements limited by infiltrative peripheral characteristics, the dominant central portion measures up to 4.7 x 4.6 cm on series 3, image 32 unchanged compared with the prior exam of 07/10/2023. Again noted is encasement and narrowing of the central bronchovascular structures. Contiguous soft tissue extension into the subcarinal region on series 3, image 28 through image 33 is again noted. Encasement of the right inferior pulmonary vein is again seen. Low-attenuation structure anterior to the SVC and aorta on series 3, image 29 is again noted without change with morphology suggesting loculated pericardial fluid. Lymph nodes: No evidence of left hilar or axillary lymphadenopathy. No mediastinal adenopathy seen separate from the dominant mass. Vasculature: No evidence of thoracic aortic aneurysm. Diaphragm: Small hiatal hernia. Gallbladder and bile ducts: Prior cholecystectomy. Bones/joints: No bony metastasis evident. Mild degenerative change present in the spine. Soft tissues: See Mediastinal space finding. CT/CT chest w con* [id number] IMPRESSION: Large right hilar mass with encasement of right hilar bronchovascular structures and contiguous mediastinal involvement without significant change. COMMENTS: The presence of pulmonary emphysema on CT is an independent risk factor for lung cancer. In the absence of a history or active diagnosis of lung cancer, it is recommended that this patient with emphysema be evaluated for enrollment in a low dose CT lung cancer screening program.
[2023-07-16] MEDS: iohexol 350 mg/mL 500 mL Btl (per mL) IV (14:18)
[2023-07-25 10:17] LABS: Basophils # 0.1 10^3/uL (0.0-0.1); Basophils % 1.4 %; Eosinophils # 0.1 10^3/uL (0.0-0.8); Hematocrit 34.2 % (36-47); Lymphocytes % 19.3 %; Mean Corpuscular HGB Conc 30.7 g/dL (30-55); Mean Corpuscular Hemoglobin 27.9 pg (27-33); Mean Corpuscular Volume 90.7 fl (85-98); Mean Platelet Volume 8.5 fL (7.4-10.4); Monocytes % 20.1 %; Neutrophils % 57.8 %; Nucleated Red Blood Cells % 0 %; Platelet Count 354 10^3/cmm (157-399); Red Blood Count 3.77 10^6/uL (3.85-5.65); Red Cell Distribution Width 21.3 % (12.1-15.1); White Blood Count 5.02 10^3/uL (3.29-11.43)
[2023-07-25 10:35] LABS: Alanine Aminotransferase 10 U/L (0-33); Albumin Level 3.9 g/dL (3.5-5.2); Alkaline Phosphatase 118 U/L (35-105); Anion Gap 19.4 (5-19); Aspartate Amino Transferase 13 U/L (0-32); Blood Urea Nitrogen 11 mg/dL (8-23); Calcium 9.5 mg/dL (8.5-10.5); Carbon Dioxide 26 mmol/L (22-29); Chloride 98 mmol/L (98-107); Globulin 3.6 g/dL (1.3-4.6); Glomerular Filtration Rate 72.4 mL/min (90-130); Glucose 109 mg/dL (65-115); Osmolality Calculated 288 mOsm/kg (285-295); Potassium 4.4 mmol/L (3.5-5.1); Sodium 139 mmol/L (136-145); Total Bilirubin 0.2 mg/dL (0.15-1.2); Total Protein 7.5 g/dL (6.6-8.7)
== END 2023-08-05 23:59 | disposition home or self-care (01) ==
PROVIDERS: PCP Family Medicine; Visit Provider Nurse Practitioner Family
DX: C34.11 Malignant neoplasm of upper lobe, right bronchus or lung (principal); Z53.9 Procedure and treatment not carried out, unspecified reason; Z85.3 Personal history of malignant neoplasm of breast; Z79.899 Other long term (current) drug therapy
CPT/HCPCS: 36415; 71260; 77336; 77386; 80053; 85025; 96360; 99024; 99213; J7030; Q9967

== ENCOUNTER → 2023-09-27 14:55 | Outpatient (BNVA) | payer MEDICARE, MEDICAID, SELFPAY | PROVIDERS: PCP Family Medicine; Referring Provider Nurse Practitioner Family; Visit Provider Internal Medicine Cardiovascular Disease | DX: R07.9 Chest pain, unspecified (principal); I48.91 Unspecified atrial fibrillation; I51.9 Heart disease, unspecified; I65.23 Occlusion and stenosis of bilateral carotid arteries; E78.5 Hyperlipidemia, unspecified; F17.219 Nicotine dependence, cigarettes, with unspecified nicotine-induced disorders; F32.9 Major depressive disorder, single episode, unspecified; F41.9 Anxiety disorder, unspecified | CPT/HCPCS: 93005; 99205 ==

== ENCOUNTER 2023-10-16 07:31 | Outpatient (CLI) | payer MEDICARE, MEDICAID, SELFPAY ==
--- NOTE | 2023-10-16 08:00 | PETR_ITS ---
PROCEDURE INFORMATION: Exam: PET/CT Skull Base to Mid-thigh Exam date and time: 10/16/2023 9:03 AM Age: 63 years old Clinical indication: Condition or disease; Primary cancer: RT lung; Follow-up oncological assessment; Condition/disease: Right lung cancer, abnormal CT finding; Prior surgery; Surgery date: 6+ months; Surgery type: Right lung 10/2022; Additional info: Restaging, please have done at least one week before 10/23/23 LABS AND CLINICAL REPORTS: Glucose: 98 mg/dl Treatment strategy for malignancy (PET staging): Restaging (PS) TECHNIQUE: Imaging protocol: Following at least four-hour fasting and following the injection of radiopharmaceutical, low dose CT images were obtained. Then, PET images were obtained. Attenuation corrected images were constructed using the CT scan. Fused images of PET and CT were reviewed. The standardized uptake values (SUV) reported below are maximum values within a region of interest, expressed in gm/ml. Exam includes orbital meatal line to mid-thigh. Radiopharmaceutical: 10.84 mCi F-18 FDG (Fluorodeoxyglucose), IV. Time of imaging post radiopharmaceutical administration: 1 hour Injection site: Right antecubital COMPARISON: CT chest 07/16/2023, PT PET skull to thigh SUBS [id number] 04/17/2023 8:49 AM FINDINGS: Brain: Visualized brain has normal physiologic uptake. Pharynx: No abnormal uptake. Larynx: No abnormal uptake. Lungs, pleura and trachea: There are postoperative changes of right upper lobectomy. A previously noted soft tissue density mass in the right hilar/mediastinal space on the CT of 07/16/2023 is not well defined without intravenous contrast, however it appears to measure up to 4.2 x 3.2 cm in the axial plane on series 202, image 201 (previously 4.7 x 4.2 cm of the prior PET-CT, 4.7 x 4.[address] cm on the prior CT of 07/16/2023), with an SUV max 5.1 in this region (previously 9.0). Abnormal uptake in the inferior margin of the mass measuring 2.9 x 1.5 cm on series 202, image 193, SUV max 11.4 (previously 6.9). Mild bilateral centrilobular emphysematous changes are noted, with superimposed mild bullous/paraseptal emphysematous changes. Heart: Normal physiologic uptake. Mediastinal space: No abnormal uptake. Liver: No abnormal uptake. Gallbladder and biliary ducts: No abnormal uptake. Cholecystectomy clips are identified. Pancreas: No abnormal uptake. Spleen: No abnormal uptake. Adrenal glands: No abnormal uptake. Kidneys and ureters: Normal physiologic uptake. Stomach and bowel: No abnormal uptake. Uptake within the stomach and bowel appears physiologic. Vasculature: No abnormal uptake. There are diffuse atherosclerotic calcifications. Lymph nodes: A radiotracer avid left paratracheal lymph node in the proximal thorax measures 1.8 x 1.9 cm on series 202, image 228, SUV max 13.3. This is new since the prior CT of 07/16/2023 and the prior PET-CT. Elevated uptake within the soft tissues anterior to the proximal right mainstem bronchus is new since the prior PET-CT likely within ill-defined lymph nodes, adjacent to surgical clips in an area measuring approximately 1.7 x 1.4 cm on series 202, image 205, SUV max 11.1. Skeleton: No abnormal uptake in the visualized axial and appendicular skeleton. There is mild diffuse vertebral body spondylosis. Soft tissues: No abnormal uptake in the visualized head, neck, chest, abdomen, pelvis, and extremities. Right axillary surgical clips are noted. METRICS: Mediastinal blood pool: SUV max 3.0, SUV mean 2.5 PET/PET skull to thigh SUBS [id number] IMPRESSION: 1. A right perihilar/right mediastinal mass appears slightly decreased in size compared with the previous examinations. Uptake within the bulk of the mass has decreased since the prior PET-CT, however, uptake along the inferior margin of the lesion has increased, suggesting a mixed response to therapy. 2. New abnormal uptake anterior to the right mainstem bronchus and in a new enlarged lymph node the proximal left paratracheal space, compatible with progressive malignancy. 3. No additional areas of radiotracer avid malignancy. 4. Additional nonurgent findings as detailed above.
== END 2023-10-16 07:32 | disposition home or self-care (01) ==
PROVIDERS: PCP Family Medicine; Visit Provider Internal Medicine
DX: C34.11 Malignant neoplasm of upper lobe, right bronchus or lung (principal); R91.8 Other nonspecific abnormal finding of lung field; D15.2 Benign neoplasm of mediastinum; R59.0 Localized enlarged lymph nodes; Z90.2 Acquired absence of lung [part of]; Z90.49 Acquired absence of other specified parts of digestive tract
CPT/HCPCS: 78815; A9552

== ENCOUNTER 2023-10-22 11:12 | Oncology outpatient (recurring) (ONCR) | payer MEDICARE, MEDICAID, SELFPAY ==
[2023-10-22 11:50] LABS: Basophils # 0.1 10^3/uL (0.0-0.1); Basophils % 0.7 %; Eosinophils # 0.1 10^3/uL (0.0-0.8); Eosinophils % 0.7 %; Lymphocytes # 0.9 10^3/uL (0.8-4.8); Lymphocytes % 12.9 %; Mean Corpuscular HGB Conc 30.9 g/dL (30-55); Mean Corpuscular Volume 97.2 fl (85-98); Monocytes # 0.8 10^3/uL (0.2-0.9); Monocytes % 10.5 %; Neutrophils # 5.34 10^3/uL (1.8-7.7); Neutrophils % 74.8 %; Nucleated Red Blood Cells % 0 %; Platelet Count 225 10^3/cmm (157-399); Red Cell Distribution Width 13.1 % (12.1-15.1); White Blood Count 7.14 10^3/uL (3.29-11.43)
[2023-10-22 12:14] LABS: Alanine Aminotransferase 27 U/L (0-33); Albumin Level 3.8 g/dL (3.5-5.2); Alkaline Phosphatase 123 U/L (35-105); Anion Gap 14.9 (5-19); Aspartate Amino Transferase 19 U/L (0-32); Blood Urea Nitrogen 14 mg/dL (8-23); CA 15-3 19.6 U/mL (0-25); Calcium 9.5 mg/dL (8.5-10.5); Carbon Dioxide 27 mmol/L (22-29); Chloride 99 mmol/L (98-107); Globulin 3.4 g/dL (1.3-4.6); Glucose 121 mg/dL (65-115); Osmolality Calculated 286 mOsm/kg (285-295); Potassium 3.9 mmol/L (3.5-5.1); Sodium 137 mmol/L (136-145); Total Bilirubin 0.2 mg/dL (0.15-1.2); Total Protein 7.2 g/dL (6.6-8.7)
== END 2023-11-05 23:59 | disposition home or self-care (01) ==
LOC: ONCMED 11:12
PROVIDERS: Internal Medicine Medical Oncology; PCP Family Medicine; Visit Provider Nurse Practitioner Family
DX: C34.11 Malignant neoplasm of upper lobe, right bronchus or lung; Z79.899 Other long term (current) drug therapy; F17.210 Nicotine dependence, cigarettes, uncomplicated; Z92.3 Personal history of irradiation; J44.9 Chronic obstructive pulmonary disease, unspecified; Z90.2 Acquired absence of lung [part of]; Z92.23 Personal history of estrogen therapy; I48.91 Unspecified atrial fibrillation; Z85.3 Personal history of malignant neoplasm of breast; Z85.820 Personal history of malignant melanoma of skin
CPT/HCPCS: 36415; 80053; 85025; 86300; 99214

== ENCOUNTER 2023-10-26 09:12 | Outpatient (CLI) | payer MEDICARE, MEDICAID, SELFPAY ==
--- NOTE | 2023-10-26 | ECG_ITS ---
[facility] Test Date: 2023-10-26 Pat Name: Tejal Yoo Department: Room: Gender: Female [employer]: : 1960 Requested By: Jordyn Dick Order Number: [id number] Shaun MD: Jordyn Dick M.D. Interpretive Statements Lung unchanged pre/post procedure; Intraprocedure shortess of breath; Symptoms resoled by discharge PROCEDURE: At the baseline, the EKG revealed normal sinus rhythm with a normal ST Ts.. Poor R wave progression. The baseline heart was 86 bpm with a blood pressue of 118/58 mm of Hg Lexiscan was infused over a period of 20 seconds. A total of 0.4 milligrams of Lexiscan was infused. The stress phase was continued for a total of 5 minutes. Heart rate at the end of the stress phase was 95 bpm with a blood pressure 89 /53 mm of Hg. The EKG at the peak infusion revealed no significant changes. Sestamibi was injected 20 seconds after the Lexiscan infusion. Heart rate at the end of the recovery phase was 91 bpm with a blood pressure of 119/64 mm of Hg. CONCLUSION: 1. No significant EKG changes with the LexiScan infusion 2. No LexiScan induced chest pain or cardiac arrhythmia 3. Normal blood pressure and heart rate response 4. Sestamibi/sestamibi perfusion scan pending; see separate report. Electronically Signed On 10-28-2023 19:42:32 CDT by Jordyn Dick M.D. [email or web address]
[2023-10-26 09:26] VITALS: BMI 24.7
--- NOTE | 2023-10-26 09:27 | NMCV_ITS ---
NM osvaldo perf SPECT r/s* [id number] Tejal Yoo Age: 63 Gender: F : 1960 Exam Date: 10/26/2023 09:27 Ordering Phys: Jordyn Dick MD ([email or web address]) Technologist: REGGIE Cardoso Exam Location: [facility] Indications: CP/AFIB STRESS TEST Please see separate stress test report in [facility] for full findings IMAGE PROTOCOL Lexiscan Radiopharmaceutical Dose (mCi) Administration Site Administered by Rest: Tc-99m 10.4 IV Lucinda Schreiber, RESEARCH MANAGEMENT ASSOCIATE Sestamibi Stress:Tc-99m 32.6 IV Lucinda De Los Santosgle, RESEARCH MANAGEMENT ASSOCIATE Sestamibi Rest: 26-Oct-2023 60 Discovery 630 Stress: 26-Oct-2023 30 Discovery 630 0.4mg Lexiscan. Images obtained in supine and prone position. SPECT RESULTS Technical Quality: Good Raw Data Analysis: Normal Image Corrections: No attenuation or motion correction applied Summed Stress Score: 0 Summed Rest Score: 4 Summed Difference Score: 0 PERFUSION FINDINGS Fairly uniform myocardial tracer uptake with no significant Perfusion abnormalities. Some attenuation artifacts were noted in the apical regions FUNCTIONAL RESULTS (calculated via Gated SPECT) Stress Image LV EF (%): 70 Stress EDV (mL):76 TID: 0.79 Stress ESV (mL):23 FUNCTIONAL FINDINGS: Segmental wall motion analysis revealing no gross wall motion abnormalities IMPRESSIONS 1. Myocardial perfusion imaging revealing fairly uniform myocardial tracer uptake with no significant Perfusion normalities. 2. Normal LV ejection fraction 70%. 3. LV wall motion analysis revealing no gross wall motion abnormalities. 4. Normal LV volume Low probability for coronary ischemia, based on the above findings No similar previous studies are available for comparison Dr Jordyn Dick MD [facility] (Electronically Signed) Final Date: 26 October 2023 18:17 S
[2023-10-26] MEDS: regadenoson 0.4 Mg/5 ml Syringe IVP (10:53)
[2023-10-26] MEDS: aminophylline 25 mg/mL SDV 10 mL IVP ×2 (11:03→11:06)
[2023-10-26 11:15] VITALS: BP 119/64; PULSE 91
== END 2023-10-26 09:13 | disposition home or self-care (01) ==
LOC: CDL 09:12
PROVIDERS: PCP Family Medicine; Visit Provider Internal Medicine Cardiovascular Disease
DX: Z98.61 Coronary angioplasty status (principal)
CPT/HCPCS: 36415; 78452; 93017; 96374; 96375; A9500; J0280; J2785